=== PATIENT | female | born 1935 | race Caucasian/White ===

== ENCOUNTER 2020-01-23 09:01 | Inpatient (IN) | payer MEDICARE, OTHER ==
[~2020-01-23] VITALS: Ht 170.2 cm; Wt 90.4 kg
[~2020-01-23 09:01] MED LIST: ACET325T21 PO; ACET500T68 PO; ALBU1.25 NEB; BUSP7.5T PO; CA C1TAB28 PO; CARV12.547 PO; CHOL10003 PO; CLON0.5T4 PO; CYAN-25 PO; DOCU100C28 PO; FLUT1DIS3 IH; HYDR25TA PO; LIDO700A4 TP; LORA0.5T PO; LUBI24CA7 PO; MAG30ORA2 PO; MAGN24003 PO; METH29OI TP; METH5TAB6 PO; METO10TA PO; MIRT15TA3 PO; MONT10TA80 PO; OMEP20CA16 PO; QUET25TA PO; QUET50TA9 PO; RANI150T2 PO; SUCR1TAB PO; TRAM50TA PO; TRAZ-120 PO; WARF5TAB2 PO
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
[2020-01-23] MEDS ORDERED: ACETAMINOPHEN 325 MG TABLET PO PRN ×2 (12:45→13:15)
[2020-01-23] MEDS ORDERED: MAGNESIUM HYDROXIDE 2,400 MG/30 ML ORAL.SUSP. PO PRN (12:45)
[2020-01-23] MEDS ORDERED: METHYL SALICYLATE/MENTHOL TOPICAL OINTMENT 57GM TUBE. TP PRN ×2 (12:45→13:15)
[2020-01-23] MEDS ORDERED: MAG HYDROX/AL HYDROX/SIMETH 30 ML ORAL.SUSP PO PRN (13:15)
[2020-01-23] MEDS ORDERED: FUROSEMIDE 20 MG TABLET PO PRN (13:15)
[2020-01-23] MEDS ORDERED: POLYVINYL ALCOHOL 1.4% OPHTH SOLUTION 15ML BOTTLE. OU PRN (13:15)
[2020-01-23] MEDS ORDERED: NON FORMULARY ITEM (Magnesium Hydroxide (Milk Of Magnesia) 2,400 MG) PO PRN (13:15)
[2020-01-23] MEDS ORDERED: TROLAMINE SALICYLATE 10% TOPICAL CREAM 85GM JAR. TP SCH (14:00)
[2020-01-23] MEDS ORDERED: PHEN26CR2 RC (14:28)
[2020-01-23] MEDS ORDERED: OLAN2.5T3 PO (14:28)
[2020-01-23] MEDS ORDERED: CARB1TAB2 PO (14:28)
[2020-01-23] MEDS ORDERED: CIPR500T94 PO (14:28)
[2020-01-23] MEDS ORDERED: POLY119P19 PO (14:28)
[2020-01-23] MEDS ORDERED: DULO60CA6 PO (14:28)
[2020-01-23] MEDS ORDERED: DEXT15DR5 OU (14:28)
[2020-01-23] MEDS ORDERED: ACET500T68 PO (14:28)
[2020-01-23] MEDS ORDERED: DIAZ5TAB4 PO (14:28)
[2020-01-23] MEDS ORDERED: ALBU2.5V5 NEB (14:28)
[2020-01-23] MEDS ORDERED: TROL85CR TP (14:28)
[2020-01-23] MEDS ORDERED: APIX2.5T PO (14:28)
[2020-01-23] MEDS ORDERED: POLY15DR27 OU (14:28)
[2020-01-23] MEDS ORDERED: FURO-69 PO (14:28)
[2020-01-23] MEDS ORDERED: METO25TA4 PO (14:28)
[2020-01-23] MEDS ORDERED: PHENYLEPH/MINERAL OIL/PETROLAT RECTAL OINTMENT TUBE. RC PRN (15:15)
[2020-01-23] MEDS ORDERED: ALBUTEROL SULFATE 8GM INHALER. INH PRN ×2 (15:45→16:30)
[2020-01-23] MEDS: CARBIDOPA/LEVODOPA 25/100MG TABLET PO SCH ×2 (15:49→20:01)
[2020-01-23 15:56] VITALS: BP 152/79
[2020-01-23] MEDS: POLYETHYLENE GLYCOL 3350 17 GM PACKET. PO PRN (16:14)
[2020-01-23] MEDS: ACETAMINOPHEN 500 MG TABLET PO SCH ×2 (17:00→20:00)
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
[2020-01-23] MEDS: METOPROLOL TART IMMED RELEASE 25 MG TABLET PO SCH (20:00)
[2020-01-23] MEDS: DULoxetine HCL 60 MG CAPSULE.DR PO SCH (20:00)
[2020-01-23] MEDS: APIXABAN 2.5 MG TABLET PO SCH (20:00)
[2020-01-23] MEDS: CIPROFLOXACIN HCL 500 MG TABLET PO SCH (20:00)
[2020-01-23] MEDS: MONTELUKAST 10 MG TABLET. PO SCH (20:01)
[2020-01-23] MEDS: diazePAM 5 MG TABLET. PO SCH (20:01)
[2020-01-23] MEDS ORDERED: DEXTRAN OU SCH (21:00)
[2020-01-23] MEDS ORDERED: HYPROMELLOSE OU SCH (21:00)
--- NOTE | 2020-01-23 21:53 | PDOC ---
Exam Note: Wade Note: Please also refer to the separate dictated note~for this date of service dictated separately.~Patient seen individually. Discussed the patient with Nursing staff reviewed the chart.~Reviewed interim history and current functioning. Reviewed vital signs,~Labs/ Radiology~and current medications noted below. Continue current treatment with the changes noted in the dictated addendum note Assessment: Vital Signs/I&O: Vital Signs Date Time Temp Pulse Resp B/P (MAP) Pulse Ox O2 Delivery O2 Flow Rate FiO2 01/23/20 21:41 98.1 98 01/23/20 20:00 91 152/79 01/23/20 15:56 16 Room Air Current Medications: Meds: Current Medications Medications (Trade) Dose Ordered Sig/Amilcar Route PRN Reason Start Time Stop Time Status Last Admin Dose Admin Acetaminophen (Tylenol) 500 mg QID PO 01/23/20 17:00 01/23/20 20:00 Apixaban (Eliquis) 2.5 mg BID PO 01/23/20 21:00 01/23/20 20:00 Carbidopa/Levodopa (Sinemet 25/100) 1 tab TID PO 01/23/20 14:00 01/23/20 20:01 Ciprofloxacin (Cipro) 500 mg BID PO 01/23/20 21:00 01/29/20 23:00 01/23/20 20:00 Diazepam (Valium) 5 mg BID PO 01/23/20 21:00 01/23/20 20:01 Duloxetine HCl (Cymbalta) 60 mg BID PO 01/23/20 21:00 01/23/20 20:00 Metoprolol Tartrate (Lopressor) 25 mg BID PO 01/23/20 21:00 01/23/20 20:00 Montelukast Sodium (Singulair) 10 mg HS PO 01/23/20 21:00 01/23/20 20:01 Polyethylene Glycol (miraLAX) 17 gm PRN DAILY PRN PO CONSTIPATION 01/23/20 15:00 01/23/20 16:14 I have reviewed the current psychotropics carefully including drug interactions. Risk benefit ratio favors no change other than as noted in my dictated progress note. Diagnosis: Problems: (1) Psychotic disorder SILVIO CERON MD Jan 23, 2020 21:53
--- NOTE | 2020-01-23 22:16 | NUR ---
Pt lying in bed, awake at shift change. Pt tearful and crying, irritable at times, and delusional- believes her is cheating on her with several different women. Pt called HIGHWAY RESEARCH ENGINEER a "whore" because she did not like the perfume that HIGHWAY RESEARCH ENGINEER was wearing. Repeat COVID swab collected and sent to the lab, pt tolerated procedure well. Pt cooperative with assessment and compliant with medications administered whole on a spoon.
[2020-01-24 05:37] VITALS: BP 122/82
[2020-01-24 06:49] LABS: BASO % 0 % (0-3); EOS # 0.3 x10^3/uL (0.0-0.7); EOS % 4 % (0-3); HEMATOCRIT 39.4 % (36.0-47.0); LYMPH # 2.5 x10^3/uL (1.0-4.8); LYMPH % 35 % (24-48); MEAN CORPUSCULAR HEMOGLOBIN 30 pg (25-35); MEAN CORPUSCULAR HGB CONC 33 g/dL (31-37); MEAN CORPUSCULAR VOLUME 90 fL (79-100); MONO # 0.5 x10^3/uL (0.0-1.1); MONO % 8 % (0-9); NEUT # 3.7 x10^3uL (1.8-7.7); NEUT % 53 % (31-73); PLATELET COUNT 273 x10^3/uL (140-400); RED BLOOD COUNT 4.36 x10^6/uL (3.50-5.40)
[2020-01-24 06:57] LABS: ALBUMIN 3.1 g/dL (3.4-5.0); CALCIUM 9.4 mg/dL (8.5-10.1); GFR 52.8; MAGNESIUM 1.9 mg/dL (1.8-2.4); POTASSIUM 4.5 mmol/L (3.5-5.1); TOTAL BILIRUBIN 0.5 mg/dL (0.2-1.0); TOTAL PROTEIN 6.2 g/dL (6.4-8.2)
[2020-01-24] MEDS: DOCUSATE SODIUM 100 MG CAPSULE PO SCH (08:37)
[2020-01-24] MEDS: DULoxetine HCL 60 MG CAPSULE.DR PO SCH ×2 (08:37→19:55)
[2020-01-24] MEDS: CARBIDOPA/LEVODOPA 25/100MG TABLET PO SCH ×3 (08:37→19:55)
[2020-01-24] MEDS: METOPROLOL TART IMMED RELEASE 25 MG TABLET PO SCH ×2 (08:38→19:56)
[2020-01-24] MEDS: APIXABAN 2.5 MG TABLET PO SCH ×2 (08:38→19:55)
[2020-01-24] MEDS: ACETAMINOPHEN 500 MG TABLET PO SCH ×4 (08:39→19:55)
[2020-01-24] MEDS: CIPROFLOXACIN HCL 500 MG TABLET PO SCH ×2 (08:39→19:56)
[2020-01-24] MEDS: diazePAM 5 MG TABLET. PO SCH ×2 (08:39→19:56)
[2020-01-24] MEDS: PANTOPRAZOLE 40 MG TABLET. PO SCH (08:39)
[2020-01-24] MEDS ORDERED: OLANZapine 2.5 MG TABLET PO SCH (09:00)
--- NOTE | 2020-01-24 11:36 | NUR ---
Nursing note: Pt in her room eating breakfast when approached for morning meds and assessment. She was social, compliant with meds whole, and cooperative with her assessment. Pt denied any pain. She continues to be depressed and preoccupied with her "cheating ", but is much less tearful than she was yesterday. She is currently sitting quietly in her room. Will continue to monitor.
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
--- NOTE | 2020-01-24 12:26 | CONS ---
DATE OF CONSULTATION: 01/24/2020 ATTENDING PHYSICIAN: Dr. Wilson. We are asked to see this patient for medical evaluation. HISTORY OF PRESENT ILLNESS: The patient is an 84-year-old female sent [place] [facility] [place], [place]. She had been in [place], [place]. She has profound underlying dementia. She was sent here for behavioral issues related to dementia with significant paranoia. PAST MEDICAL HISTORY: Gleaned from the chart. She has been diagnosed in the past with profound dementia, major depression, generalized anxiety, essential hypertension, Parkinson's disease, rectal prolapse, unspecified diastolic congestive heart failure, compensated diffuse osteoarthritis, chronic constipation, irritable bowel syndrome, dysphagia, hyperlipidemia, essential tremor, paroxysmal atrial fibrillation and hemorrhoids. ALLERGIES: She has multiple allergies including allergies to ERYTHROMYCIN, MOEXIPRIL, ALPRAZOLAM, ZITHROMAX, CEFUROXIME, CLINDAMYCIN, CODEINE, HYDROCHLOROTHIAZIDE, HYDROCODONE, AND METRONIDAZOLE. Exact cause is unclear. CURRENT ACTIVE MEDICATIONS: Include Tylenol, albuterol, Eliquis 2.5 mg b.i.d., Sinemet 25/100 t.i.d., Cipro for 7 days, dextran, diazepam, docusate, Cymbalta 60 mg daily, Lasix 20 mg daily, magnesium hydroxide, methyl salicylate, menthol ointment, metoprolol 25 mg b.i.d., Montelukast, Zyprexa 2.5 mg daily, omeprazole, MiraLax, polyvinyl alcohol and Asper-Flex. SOCIAL HISTORY: Nonsmoker, drinking history unobtainable. FAMILY HISTORY: Unobtainable. REVIEW OF SYSTEMS: Unfortunately is unobtainable. PHYSICAL EXAMINATION: GENERAL: When I saw her, this is an elderly lady who is sleepy, but arousable. She is slumped over in her wheelchair in her room. VITAL SIGNS: Her vital signs showed a blood pressure 122/82 mmHg, temperature 98.6 degrees Fahrenheit, pulse is 60 and regular, oxygen saturation 99% on 2 liters of nasal cannula. HEENT: The head is without trauma. Pupils are reactive. The sclerae are nonicteric. The oropharynx appears normal without any lesions. NECK : The neck was supple. LUNGS: Shallow respirations. No wheezing. CARDIOVASCULAR: Showed distant heart tones. No gallops. Peripheral pulses are palpable and full. ABDOMEN: Obese, protuberant. No organomegaly. No guarding or rebound tenderness. EXTREMITIES: Showed trace edema. NEUROLOGIC FUNCTION: She is able to pearl fisherman my hands symmetrical without any muscle loss. Her cranial nerves 2-12 appeared to be intact grossly. Her tendon reflexes are sluggish, but symmetrical. I could not assess her gait at this time. She is nonambulatory, sitting in a wheelchair. I could not assess her Romberg. Therefore, the full neurological exam is limited due to the patient's underlying dementia and debilitation. PERTINENT LABORATORY STUDIES: She had a COVID-19 swab which was negative prior to admission. Her hemoglobin is 13.0 g/dL with white count of 7000. Electrolytes showed a sodium of 144 and potassium 4.5 mEq per liter. Creatinine is 1.0 mg/dL. Transaminases all within normal range. Her nonfasting blood sugar is 92 mg/dL. ASSESSMENT: 1. This 84-year-old female has profound dementia with behavioral issues and paranoia. 2. History of Parkinson's disease, on medication. 3. Essential hypertension with labile blood pressures. 4. Chronic low back pain. 5. History of congestive heart failure. 6. Unspecified atrial fibrillation. 7. Chronic anticoagulation. 8. Irritable bowel syndrome. 9. Dysphagia. RECOMMENDATIONS: 1. I have reviewed the patient's medications and she appears a bit sedated and we shall follow along during the course to see if she needs all her meds. 2. She is a DNR per advanced directive. We should respect her wishes. 3. So far she is stable from medical standpoint, although with all her medical issues, she is at risk for developing acute problems. Thank you very much for asking me to see the patient in medical consultation. We should keep an eye on her closely during her inpatient stay. We shall follow along closely with interest. SAMANTHA MAC MD DR: JAKI/neil JOB#: [id number] / [id number]
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
[2020-01-24 15:30] VITALS: BP 127/74
--- NOTE | 2020-01-24 15:55 | TX PLAN ---
Interdisciplinary Tx Plan Admission Information Jan 23, 2020 at 11:13 Legal Status (on Admission): Voluntary DPOA/Guardian Name: Prakash Fitch Contact Other Contact Name: [facility] Other Contact Verified Code Status: DNR Allergies: Coded Allergies: Erythromycin Base (Verified Allergy, Unknown, 11/12/13) Moexipril (Verified Allergy, Unknown, 11/12/13) alprazolam (Verified Allergy, Unknown, 11/12/13) azithromycin (Verified Allergy, Unknown, 11/12/13) cefuroxime (Verified Allergy, Unknown, 11/09/13) clindamycin (Verified Allergy, Unknown, 11/09/13) codeine (Verified Allergy, Unknown, 11/12/13) hydrochlorothiazide (Verified Allergy, Unknown, 11/12/13) hydrocodone (Verified Allergy, Unknown, 11/12/13) metronidazole (Verified Allergy, Unknown, 11/12/13) Diagnoses Primary Diagnosis: Psychotic D/O unspecified Reasons for Admission: Delusions, Agitated, Hallucinations, Suspicious/paranoid, Poor impulse control, Other Problem in Patient's Words: Thinks that a lot of this has to do with her having multiple UTI's. Additional Admission Comments: According to the intake, pt is delusional and thinks staff are having an affair with her . Pt is having visual and auditory hallucinations, expressing SI "I just want to " putting herself on the floor, mood lability, irritable, agitated and pacing. Problems Active Problems: delusional SI without definite plan mood lability Inactive Problems: Medication management Pt Strengths/Limitations Ability for [place]: Poor Cognitive Functioning/Ability: Poor Communication Skills/Ability: Fair Financial Resources: Fair Insight/Judgement: Poor Intellectual Ability: Fair Physical Health: Poor Social Skills: Fair Stability in Family: Good Stability in School/Work: Poor Verbal Skills: Fair Discharge Criteria Discharge Criteria: No need for close observ., Adequate arrangements @DC, Improved behavior, Improved mood/thought Preliminary Discharge Plan Preliminary DC Plan: Current Living Arrange. Special Precautions Fall Risk: Low Initial D/C Plan Pt will return to [facility] Identified Discharge Needs: Continued psychiatric services Currently Utilized Resources Currently Utilized Resources/P: Primary care physician Referrals Community Resources: Psychiatrist Identified Problems/Hx/Goals Objectives/Short-Term Goals Short Term Goals: Dec. Hallucination/Delus, Dec. Outbursts, Improved Social Skills, Medication Stabilization, Promote Coping Skill Short Term Goals in Patient's: "Can I get a phone to call my " Interventions/Frequency Staff Interventions/Frequency&: Psychiatrist to assess pt at least 3x per week. Social Work to asses pt at least 2x per week. Nursing to assess behavior, medications and complete 15 minute checks daily. Encourage group participation or 1:1 engagement based off Activity Dept assessment. 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 Education: Pt graduated high school (12th grade) Community Follow-up Primary Care physician Updates to LTC facility Treatment Plan Explained Patient/Bead Stringer had this treatment plan explained to him/her as indicated by the signature below and has been given the opportunity to ask questions and make suggestions: Date: Patient/Bead Stringer Signature: Patient/Bead Stringer Decline: No Additional Comments Pt is eating roughly 80% of meals and slept 7 hours last night. Pt is delusional and continues to make SI statements, telling nursing that if she had a gun, she would use it on herself. Pt continues to believe that her is having an affair and accused a STREET SUPERVISOR of having an affair, as her perfume reminds her of the woman (this is a delusion). Pt will have her Zyprexa discontinued and start Abilify 5mg daily. Pt will also receive a neurology consult with Dr. Martins. MATTEO SALGUERO Jan 24, 2020 15:55
[2020-01-24 16:07] LABS: THYROXINE 7.6 ug/dL (4.5-12.0)
[2020-01-24 16:21] LABS: THYROID STIM HORMONE (TSH) 0.497 uIU/mL (0.358-3.740)
--- NOTE | 2020-01-24 19:38 | CONS ---
DATE OF CONSULTATION: 01/24/2020 NEURO CONSULTATION REFERRING PHYSICIAN: Dr. Wilson. REASON FOR CONSULTATION: Management of Parkinson's disease. HISTORY OF PRESENT ILLNESS: This is an 84-year-old right-handed female who was admitted on 01/23/2020 on account of behavior disturbances and progressive dementia. Neuro consult was requested because the patient has longstanding history of Parkinson's disease. The patient complains of intermittent tremor of the upper extremity and increased stiffness of the arms and legs. She has difficulty walking. Therefore, she is wheelchair bound. She denies headaches, visual disturbances, nausea, vomiting, chest pain, shortness of breath or palpitations; however, the patient complains of chronic lower back pain and sometimes radiating into the lower extremities. She has been on carbidopa/levodopa 25/100 three times daily, but she continues to have resting tremor of both hands. PAST MEDICAL HISTORY: Significant for atrial fibrillation, anxiety, depressions, slowly progressive dementia, hypertension, diastolic congestive heart failure, diffuse osteoarthritis, irritable bowel syndrome, hyperlipidemia, hemorrhoids, recent history of urinary tract infections, GERD. SOCIAL HISTORY: The patient is a nonsmoker. She denies alcohol drinking or illicit drug use. FAMILY HISTORY: Noncontributory. CURRENT MEDICATIONS: Abilify 5 mg daily, pantoprazole 40 mg daily, Singulair 10 mg daily, metoprolol 25 mg b.i.d., Cymbalta 60 mg b.i.d., diazepam 5 mg b.i.d., Eliquis 2.5 mg b.i.d., Tylenol 500 mg p.r.n., albuterol inhalers, carbidopa/levodopa 25/100 t.i.d., Lasix 20 mg p.r.n. for edema. ALLERGIES: ERYTHROMYCIN BASE, MOEXIPRIL, ALPRAZOLAM, AZITHROMYCIN, CEFUROXIME, CLINDAMYCIN, CODEINE, HYDROCHLOROTHIAZIDE, HYDROCODONE, METRONIDAZOLE. REVIEW OF SYSTEMS: A 10-point review of system was performed as mentioned above in history of present illness. PHYSICAL EXAMINATION: GENERAL: This is a well-developed, well-nourished female, not in acute distress. She weighs 90.9 kilos. VITAL SIGNS: Blood pressure 127/74, respiratory rate 18, pulse is 74 and irregular, temperature is 98.2, oxygen saturation is 99% on 2 liters by nasal cannula. HEENT: Normocephalic, atraumatic, otherwise unremarkable. NECK: Supple. Negative for carotid bruit, lymphadenopathy or thyromegaly. LUNGS: Clear to A and P. CARDIOVASCULAR: Irregular rhythm, normal S1, S2. There is no S3, S4 or murmur. ABDOMEN: Soft. Bowel sounds positive. EXTREMITIES: Negative for cyanosis, clubbing or edema. NEUROLOGICAL EXAM: Mental Status: The patient is alert and oriented to time and place. She is able to name the president. Speech is fluent. There is no language dysfunction. She recalls 1/3 immediately and after 1 and 3 minutes. Judgment and abstracting thinking are fair. The patient denies hallucination or delusion. Cranial nerves: Visual santiago are full. The pupils are reactive to light and accommodation. The extraocular movements are intact. There is no nystagmus. There are no facial motor or sensory deficits. Hearing is intact bilaterally. The palate is elevated symmetrically. Sternocleidomastoid muscles are powerful bilaterally. The patient shrugs her shoulders symmetrically, protrudes her tongue in the midline without fasciculation or atrophy. Motor examination: No focal muscle bulk was seen. The tone is increased in the upper extremity. The patient has resting tremor of both upper extremities. The strength is 4/5 throughout. Sensory examination revealed normal pinprick, light touch, vibratory and position senses. Deep tendon reflexes were symmetric and hypoactive with absent Achilles responses. Gait: Not tested. DIAGNOSTIC DATA: Head CT scan from 2014 revealed no intracranial process. Chest x-ray revealed no acute cardiopulmonary process. LABORATORY DATA: CBC revealed white blood cells of 7000, hemoglobin 13, hematocrit 39.4, platelet count 273,000. Chemistry revealed sodium of 144, potassium 4.5, chloride 106, CO2 of 35, BUN 10, creatinine 1, glucose 92, magnesium 1.9. Iron is normal at 78. Liver enzymes are low ALT with high alkaline phosphatase. Lipid profile revealed elevated triglycerides and cholesterol and LDL. HDL is normal at 51. Vitamin B12 is low at 217 with normal thyroid profile. Treponema pallidum is RPR nonreactive. IMPRESSION: 1. Slowly progressive dementia. 2. Long history of Parkinson's disease. 3. Multiple medical problems include hypertension, hyperlipidemia, chronic low back pain, atrial fibrillation, irritable bowel syndrome and dysphagia. RECOMMENDATIONS: 1. We will continue with carbidopa/levodopa 25/100. 2. Add ropinirole 0.5 mg b.i.d. 3. Physical therapy evaluation. 4. Continue with current medical and psychiatric care. M Isidoro FISH MD DR: NATO/neil JOB#: [id number] / [id number]
[2020-01-24] MEDS: rOPINIRole 0.5 MG TABLET. PO SCH (19:55)
[2020-01-24] MEDS: MONTELUKAST 10 MG TABLET. PO SCH (19:55)
[2020-01-24] MEDS: LACTOBACILLUS RHAMNOSUS GG 1 CAPSULE. PO SCH (19:56)
[2020-01-24] MEDS: POLYETHYLENE GLYCOL 3350 17 GM PACKET. PO PRN (20:06)
--- NOTE | 2020-01-24 21:58 | PDOC ---
Exam Note: Wade Note: Please also refer to the separate dictated note~for this date of service dictated separately.~Patient seen individually. Discussed the patient with Nursing staff reviewed the chart.~Reviewed interim history and current functioning. Reviewed vital signs,~Labs/ Radiology~and current medications noted below. Continue current treatment with the changes noted in the dictated addendum note Assessment: Vital Signs/I&O: Vital Signs Date Time Temp Pulse Resp B/P (MAP) Pulse Ox O2 Delivery O2 Flow Rate FiO2 01/24/20 20:26 97.4 72 100 01/24/20 19:56 127/74 01/24/20 15:30 18 2.0 01/24/20 05:37 Nasal Cannula I & O 01/23/20 01/23/20 01/24/20 15:00 23:00 07:00 Intake Total 600 ml Balance 600 ml Labs: Laboratory Tests Test 01/24/20 06:22 White Blood Count 7.0 x10^3/uL (4.0-11.0) Red Blood Count 4.36 x10^6/uL (3.50-5.40) Hemoglobin 13.0 g/dL (12.0-15.5) Hematocrit 39.4 % (36.0-47.0) Mean Corpuscular Volume 90 fL (79-100) Mean Corpuscular Hemoglobin 30 pg (25-35) Mean Corpuscular Hemoglobin Concent 33 g/dL (31-37) Red Cell Distribution Width 15.0 % (11.5-14.5) H Platelet Count 273 x10^3/uL (140-400) Neutrophils (%) (Auto) 53 % (31-73) Lymphocytes (%) (Auto) 35 % (24-48) Monocytes (%) (Auto) 8 % (0-9) Eosinophils (%) (Auto) 4 % (0-3) H Basophils (%) (Auto) 0 % (0-3) Neutrophils # (Auto) 3.7 x10^3uL (1.8-7.7) Lymphocytes # (Auto) 2.5 x10^3/uL (1.0-4.8) Monocytes # (Auto) 0.5 x10^3/uL (0.0-1.1) Eosinophils # (Auto) 0.3 x10^3/uL (0.0-0.7) Basophils # (Auto) 0.0 x10^3/uL (0.0-0.2) Sodium Level 144 mmol/L (136-145) Potassium Level 4.5 mmol/L (3.5-5.1) Chloride Level 106 mmol/L (98-107) Carbon Dioxide Level 35 mmol/L (21-32) H Anion Gap 3 (6-14) L Blood Urea Nitrogen 10 mg/dL (7-20) Creatinine 1.0 mg/dL (0.6-1.0) Estimated GFR (Cockcroft-Gault) 52.8 BUN/Creatinine Ratio 10 (6-20) Glucose Level 92 mg/dL (70-99) Calcium Level 9.4 mg/dL (8.5-10.1) Magnesium Level 1.9 mg/dL (1.8-2.4) Iron Level 78 ug/dL (50-170) Total Iron Binding Capacity 225 ug/dL (250-450) L Iron Saturation 35 % (15-34) H Total Bilirubin 0.5 mg/dL (0.2-1.0) Aspartate Amino Transferase (AST) 16 U/L (15-37) Alanine Aminotransferase (ALT) 12 U/L (14-59) L Alkaline Phosphatase 117 U/L (46-116) H Total Protein 6.2 g/dL (6.4-8.2) L Albumin 3.1 g/dL (3.4-5.0) L Albumin/Globulin Ratio 1.0 (1.0-1.7) Triglycerides Level 139 mg/dL (0-150) Cholesterol Level 221 mg/dL (0-200) H LDL Cholesterol, Calculated 143 mg/dL (0-100) H VLDL Cholesterol, Calculated 27 mg/dL (0-40) Non-HDL Cholesterol Calculated 170 mg/dL (0-129) H HDL Cholesterol 51 mg/dL (40-60) Cholesterol/HDL Ratio 4.0 Vitamin B12 Level 217 pg/mL (247-911) L 25-Hydroxy Vitamin D Total 10.5 ng/mL (30-100) L Thyroid Stimulating Hormone (TSH) 0.497 uIU/mL (0.358-3.740) Thyroxine (T4) 7.6 ug/dL (4.5-12.0) Total Triiodothyronine (TT3) 90 ng/dL (71-180) Treponema pallidum Antibody Nonreactive (Nonreactive) Current Medications: Meds: Current Medications Medications (Trade) Dose Ordered Sig/Amilcar Route PRN Reason Start Time Stop Time Status Last Admin Dose Admin Docusate Sodium (Colace) 100 mg DAILY PO 01/24/20 09:00 01/24/20 08:37 Olanzapine (ZyPREXA) 1.25 mg DAILY PO 01/24/20 09:00 01/24/20 10:19 DC 01/24/20 08:39 Pantoprazole Sodium (Protonix) 40 mg DAILYAC PO 01/24/20 07:30 01/24/20 08:39 Lactobacillus Rhamnosus (Culturelle) 1 cap BID PO 01/24/20 21:00 01/24/20 19:56 Ropinirole HCl (Requip) 0.5 mg BID PO 01/24/20 21:00 01/24/20 19:55 I have reviewed the current psychotropics carefully including drug interactions. Risk benefit ratio favors no change other than as noted in my dictated progress note. Diagnosis: Problems: (1) History of Parkinson's disease (2) Psychotic disorder SILVIO CERON MD Jan 24, 2020 21:58
--- NOTE | 2020-01-24 21:59 | NUR ---
Location of Patient during Assessment: pt sitting quietly in her w/c. Behaviors Mood and Affect this shift: Pt calm, pleasant, and cooperative this evening. Easily engaged in conversation, smiling and laughing with staff. Medication Compliant: Pt compliant with medications administered whole on a spoon. Assessment Compliant: Pt compliant and cooperative with assessment. Pt has c/o constipation, Miralax administered in cranberry juice. 2+ edema BLE, skin acrocyanotic but intact. Response After Interventions: Pt reports that she feels better today than she has previously, is less tearful with an appropriate affect.
[2020-01-25 00:07] LABS: HEMOGLOBIN A1C 5.4 % (4.8-5.6)
[2020-01-25 06:57] VITALS: BP 148/78
[2020-01-25] MEDS: DULoxetine HCL 60 MG CAPSULE.DR PO SCH ×2 (08:19→20:54)
[2020-01-25] MEDS: CIPROFLOXACIN HCL 500 MG TABLET PO SCH ×2 (08:19→20:54)
[2020-01-25] MEDS: METOPROLOL TART IMMED RELEASE 25 MG TABLET PO SCH ×2 (08:19→20:54)
[2020-01-25] MEDS: diazePAM 5 MG TABLET. PO SCH ×2 (08:19→21:00)
[2020-01-25] MEDS: PANTOPRAZOLE 40 MG TABLET. PO SCH (08:19)
[2020-01-25] MEDS: ACETAMINOPHEN 500 MG TABLET PO SCH ×4 (08:19→20:54)
[2020-01-25] MEDS: CARBIDOPA/LEVODOPA 25/100MG TABLET PO SCH ×3 (08:19→20:54)
[2020-01-25] MEDS: LACTOBACILLUS RHAMNOSUS GG 1 CAPSULE. PO SCH ×2 (08:19→20:55)
[2020-01-25] MEDS: rOPINIRole 0.5 MG TABLET. PO SCH ×2 (08:19→20:54)
[2020-01-25] MEDS: APIXABAN 2.5 MG TABLET PO SCH ×2 (08:19→20:54)
[2020-01-25] MEDS: DOCUSATE SODIUM 100 MG CAPSULE PO SCH (08:20)
[2020-01-25] MEDS ORDERED: ARIPiprazole 5 MG TABLET PO SCH (09:00)
--- NOTE | 2020-01-25 10:32 | NUR ---
Nursing note: Pt sitting up in bed eating breakfast when approached for morning med pass and assessment. Pt was med compliant and cooperative. She denies pain when asked and says that she's feeling good. Pt asked this nurse "were you with my this morning?" When given no as an answer she asked "who was that man here this morning?" It was explained to the pt that there were 2 males on night shift supervisor staff. Pt was accepting of this answer. She is currently sitting quietly in her room. Will continue to monitor.
[2020-01-25] MEDS ORDERED: CYANOCOBALAMIN (VITAMIN B-12) 1,000 MCG/ML VIAL. IM ONE (11:30)
[2020-01-25] MEDS ORDERED: MAGNESIUM CITRATE 296 ML SOLUTION. PO ONE (12:45)
--- NOTE | 2020-01-25 13:54 | PN ---
DATE: 01/24/2020 PSYCHIATRIC PROGRESS NOTE This late entry 01/24/2020 covers elements not covered in my initial note. SUBJECTIVE: I met with the patient evening of 01/24/2020 on telehealth rounds and staffed a treatment team meeting with the entire team in the morning with WILIAN Cerna and Joelle, social service staff. The patient's culture sensitivity has returned. We will check with Dr. Covarrubias. Patient remains depressed, tearful, paranoid, suspicious with fleeting suicidal ideation. No active intent or plan. Appetite 80%. REVIEW OF SYSTEMS: Ambulation impaired. No CV, , pulmonary, eye system symptoms on review. MENTAL STATUS EXAM: Oriented to herself and situation. Speech is coherent, has some latency. Abstraction fair, computation impaired, language function intact. Mood and affect depressed. She is quite tearful, hopeless, helpless. No suicidal ideation. LABORATORY DATA: Reviewed. IMPRESSION: Major depressive disorder with psychotic features, urinary tract infection, Parkinson's disease. Rest unchanged. PLAN: Continue Cipro for UTI. Change Zyprexa 1.25 mg daily to Abilify 5 mg a day as an antipsychotic, maintain Cymbalta 60 mg b.i.d., Sinemet and Valium at current dosage. We will consider tapering the Valium. SILVIO CERON MD DR: SAULO/neil JOB#: [id number] / [id number]
--- NOTE | 2020-01-25 14:10 | HP ---
ADMIT DATE: 01/23/2020 PSYCHIATRIC ADMISSION HISTORY AND EVALUATION This is a late entry, date of service 01/23/2020, covers elements not covered in my initial note. SUBJECTIVE: I met with the patient evening of 01/23/2020, previously discussed with Shital Fischer, marketing database coordinator and with nursing staff. IDENTIFYING DATA: The patient is an 84-year-old female referred to us from [facility] by her primary care physician on account of worsening delusions, depression. The patient believed the staff members were having an affair with her spouse. She was having auditory and visual hallucinations, making statements, "I just want to ." She was putting herself on the floor, had a labile mood, agitated, pacing. She had failed outpatient psychiatric interventions, referred for inpatient psychiatric stabilization. CHIEF COMPLAINT: "Yes, they are having an affair with him." HISTORY OF PRESENT ILLNESS: The patient has a history of worsening symptoms of depression, delusions with active psychotic symptoms as noted above. She has had sleep and appetite changes, increased irritability, marked depression, suicidal ideation, and has failed outpatient psychiatric interventions resulting in this referral. No clear history of bipolar disorder. She does have a history of Parkinson's disease and question has been raised whether the Sinemet could be worsening her psychosis. PAST PSYCHIATRIC HISTORY: As above. MEDICAL HISTORY: Hypertension, hyperlipidemia, CHF, asthma, dysphagia, irritable bowel syndrome, obesity, atrial fibrillation, tremor, respiratory failure, muscle weakness, chronic constipation, Parkinson's disease, hemorrhoids, lower back pain. ACCU-CHEKS: None. DIET: Regular, cardiac. ALLERGIES: CEFUROXIME, CLINDAMYCIN, CODEINE, ERYTHROMYCIN, HYDROCHLOROTHIAZIDE, HYDROCODONE, UNIRETIC, XANAX, ZITHROMAX. CODE STATUS: DNR. Ambulates with wheelchair or walker. UA was positive and she is on Cipro for UTI ____. CURRENT PSYCHOTROPICS: Cymbalta 60 mg b.i.d., Zyprexa 1.25 mg daily, Sinemet CR 25/100 t.i.d., Valium 5 mg b.i.d. FAMILY HISTORY: Noncontributory. SOCIAL HISTORY: No history of alcohol, drug abuse, physical, sexual or elder abuse. She is not known to be a perpetrator. REACTION TO HOSPITALIZATION: The patient accepting of this. MENTAL STATUS EXAMINATION: The patient was seen individually at some length in her room evening of 01/23/2020. She is not very verbally interactive, appears paranoid, depressed, withdrawn, suspicious. Per nursing report, she has been reasonably oriented. Attention span is short. Mood is depressed, anxious. No active suicidal or homicidal ideation. LABORATORY DATA: Reviewed. IMPRESSION: Major depressive disorder with psychotic features; psychotic disorder, unspecified; urinary tract infection, Parkinson's disease. Rest diagnoses as above. PLAN: Admit to Geropsychiatry Unit at [facility]. I will see the patient daily individually from a psychiatric standpoint. Medical followup with Dr. Macedo/Dr. Covarrubias. Continue the patient on her current psychotropics. Consider changing Zyprexa to Abilify for psychosis. May consider having a Neurology consult with Dr. Martins given her Parkinson's and Sinemet worsening psychosis. Make further adjustments as clinically indicated. Estimated length of stay is 10-12 days. SILVIO CERON MD DR: SAULO/neil JOB#: [id number] / [id number]
[2020-01-25 16:06] VITALS: BP 109/64
--- NOTE | 2020-01-25 17:26 | NUR ---
Nursing note: Pt uncontrollably crying and yelling out. She is unable to be redirected. Order obtained for PRN tayler. PRN given. Will continue to monitor.
[2020-01-25 20:45] VITALS: BP 115/73
[2020-01-25] MEDS: MONTELUKAST 10 MG TABLET. PO SCH (20:54)
[2020-01-25] MEDS: NEOMYCIN/BACI/POLY/HC OPHTH OINTMENT 3.5GM TUBE. OS SCH (20:55)
--- NOTE | 2020-01-25 21:55 | PDOC ---
Exam Note: Wade Note: Please also refer to the separate dictated note~for this date of service dictated separately.~Patient seen individually. Discussed the patient with Nursing staff reviewed the chart.~Reviewed interim history and current functioning. Reviewed vital signs,~Labs/ Radiology~and current medications noted below. Continue current treatment with the changes noted in the dictated addendum note Assessment: Vital Signs/I&O: Vital Signs Date Time Temp Pulse Resp B/P (MAP) Pulse Ox O2 Delivery O2 Flow Rate FiO2 01/25/20 20:54 80 115/73 01/25/20 20:47 98.8 95 01/25/20 16:06 18 01/25/20 06:57 2.0 01/24/20 05:37 Nasal Cannula I & O 01/24/20 01/24/20 01/25/20 15:00 23:00 07:00 Intake Total 560 ml 560 ml Balance 560 ml 560 ml Labs: Laboratory Tests Test 01/25/20 06:02 Glucose (Fingerstick) 84 mg/dL (70-99) Current Medications: Meds: Current Medications Medications (Trade) Dose Ordered Sig/Amilcar Route PRN Reason Start Time Stop Time Status Last Admin Dose Admin Aripiprazole (Abilify) 5 mg DAILY PO 01/25/20 09:00 01/25/20 17:09 DC 01/25/20 08:20 Cyanocobalamin (Vitamin B-12) 1,000 mcg 1X ONCE IM 01/25/20 11:30 01/25/20 11:31 DC 01/25/20 13:32 Magnesium Citrate (Citroma) 296 ml 1X ONCE PO 01/25/20 12:45 01/25/20 12:46 DC 01/25/20 13:32 Neomycin/ Polymyxin/Bacitr/ Hydrocort (Cortisporin Ophth) 2 shmuel BID OS 01/25/20 21:00 01/25/20 20:55 Olanzapine (ZyPREXA ZYDIS) 2.5 mg PRN Q2HR PRN PO PSYCHOSIS 01/25/20 17:15 01/25/20 17:22 I have reviewed the current psychotropics carefully including drug interactions. Risk benefit ratio favors no change other than as noted in my dictated progress note. Diagnosis: Problems: (1) Major depressive disorder with psychotic features (2) Urinary tract infection (3) Psychotic disorder (4) History of Parkinson's disease SILVIO CERON MD Jan 25, 2020 21:55
--- NOTE | 2020-01-25 22:00 | PN ---
DATE: 01/25/2020 PSYCHIATRIC PROGRESS NOTE This note covers elements not covered in my initial note 01/25/2020. SUBJECTIVE: I met with the patient evening of 01/25/2020 on telehealth rounds. Per nursing report, the patient slept 7-1/2 hours previous night, less tearful. electronic assembly, she was interactive, but then drowsy a little bit later, seemed a little more confused since Requip was added earlier in the day by Dr. Martins for her Parkinson's. It appeared at one point, she did not know how to drink or eat. She is anxious and tearful. REVIEW OF SYSTEMS: Positive for back pain, impaired ambulation. No CV, , pulmonary, eye system symptoms on review. MENTAL STATUS EXAM: Oriented to herself and situation. Speech is coherent, abstraction fair, computation impaired, language function intact, attention span short. Mood and affect depressed. She is still psychotic. We had a lengthy discussion that her had not done, some of the things she believe he had done including having an affair. She is less fixated on this, but still quite delusional as I processed this with her. Speech is coherent. Thought processes goal directed, but paranoid. No active suicidal or homicidal ideation. Mood remains depressed. LABORATORY DATA: Reviewed. IMPRESSION: Major depressive disorder with psychotic features; psychotic disorder, unspecified; Parkinson's disease. Rest unchanged. PLAN: Reduce Abilify from 5 mg a day down to 2.5 mg a day. May consider tapering the Valium in due course, which is currently 5 mg b.i.d. Maintain Cymbalta 60 mg b.i.d., may reduce this as well. Treat the back pain. Rest unchanged for now. MAN Oz CERON MD DR: SAULO/neil JOB#: [id number] / [id number]
--- NOTE | 2020-01-25 23:00 | NUR ---
Location of Patient during Assessment: pt withdrawn to her room, sitting up in her chair. Behaviors Mood and Affect this shift: Pt somewhat tearful this evening, delusional- thinks she is 66 y/o although she knows her and the current year; but pt is cooperative with cares. Medication Compliant: Pt compliant with her medications administered whole on a spoon. HS Valium held this shift d/t drowsiness. Assessment Compliant: Pt compliant with assessment. Pt having increased drooling on R side of mouth, will pass along in report. Pt did have large results from magnesium citrate administered earlier today. Response After Interventions: Pt calm, reporting that she feels relieved that she was able to have a BM this evening. Pt assisted into bed, O2 applied, and pt resting quietly at this time.
--- NOTE | 2020-01-26 01:12 | PN ---
DATE: SUBJECTIVE: The patient denies any new medical or neurological complaints. She continues to complain of pain of the knees, mainly on the left side and continue to have resting tremor of both hands. The patient stated her tremor has been less severe today. She was started on ropinirole 0.5 mg twice daily yesterday. OBJECTIVE: GENERAL: Well-developed, well-nourished female, not in acute distress. VITAL SIGNS: Blood pressure 109/64, respiratory rate 18, pulse is 92 regular, temperature 97.6, oxygen saturation 97% on room air. HEENT: Normocephalic, atraumatic, otherwise unremarkable. NECK: Supple. Negative for carotid bruit, lymphadenopathy or thyromegaly. LUNGS: Clear to A and P. CARDIOVASCULAR: Irregular ____ rhythm, normal S1, S2. ABDOMEN: Soft. Bowel sounds positive. EXTREMITIES: Negative for cyanosis, clubbing or edema. NEUROLOGICAL EXAM: Mental Status: The patient is alert and oriented to herself and place. She knows the date of Tuesday, but she did not know the month. Speech is fluent. There is no language dysfunction. Memory, judgment, and abstract thinking are fair. The patient denies hallucination or delusion. Cranial nerves are intact. No focal motor deficits; however, the strength is 4/5 throughout. The patient has a resting tremor of both hands. Sensory examination revealed normal pinprick and light touch senses throughout. Deep tendon reflexes were symmetric and hypoactive with absent Achilles responses. Gait: The patient is wheelchair bound. LABORATORY DATA: Chemistry revealed vitamin B12 is 217 with vitamin D at 10.5, glucose is 84, A1c is 5.4. The iron is normal, but iron saturation is high with low ____ TIBC. IMPRESSION: 1. Parkinson disease. 2. Slowly progressive dementia. 3. Multiple medical problems include hypertension, hyperlipidemia, chronic low back pain, atrial fibrillation, irritable bowel syndrome and dysphagia, vitamin B12 deficiency and vitamin D deficiency. RECOMMENDATIONS: 1. Continue with current medication for Parkinson's including carbidopa/levodopa and ropinirole. 2. Start the patient on vitamin B12 and vitamin D. 3. Continue with current medical and psychiatric care. M Isidoro FISH MD DR: NATO/neil JOB#: [id number] / [id number]
[2020-01-26 05:37] VITALS: BP 113/73
[2020-01-26] MEDS: NEOMYCIN/BACI/POLY/HC OPHTH OINTMENT 3.5GM TUBE. OS SCH ×2 (09:00→19:55)
[2020-01-26] MEDS: LACTOBACILLUS RHAMNOSUS GG 1 CAPSULE. PO SCH ×2 (09:00→19:55)
[2020-01-26] MEDS: CARBIDOPA/LEVODOPA 25/100MG TABLET PO SCH ×3 (09:03→19:55)
[2020-01-26] MEDS: PANTOPRAZOLE 40 MG TABLET. PO SCH (09:03)
[2020-01-26] MEDS: METOPROLOL TART IMMED RELEASE 25 MG TABLET PO SCH ×2 (09:03→19:55)
[2020-01-26] MEDS: diazePAM 5 MG TABLET. PO SCH ×2 (09:03→19:55)
[2020-01-26] MEDS: rOPINIRole 0.5 MG TABLET. PO SCH ×2 (09:04→19:54)
[2020-01-26] MEDS: DULoxetine HCL 60 MG CAPSULE.DR PO SCH (09:04)
[2020-01-26] MEDS: ACETAMINOPHEN 500 MG TABLET PO SCH ×4 (09:04→19:55)
[2020-01-26] MEDS: DOCUSATE SODIUM 100 MG CAPSULE PO SCH (09:04)
[2020-01-26] MEDS: CIPROFLOXACIN HCL 500 MG TABLET PO SCH ×2 (09:04→19:55)
[2020-01-26] MEDS: ARIPiprazole 5 MG TABLET PO SCH (09:04)
[2020-01-26] MEDS: APIXABAN 2.5 MG TABLET PO SCH ×2 (09:04→19:55)
--- NOTE | 2020-01-26 09:50 | NUR ---
Patient is calm and cooperative this morning. Patient stated that she sleep Addendum: 01/26/20 at 0951 by CANDIDO CHRISTIANSON RN slept well. Patient has no further needs at this time.
[2020-01-26 16:12] VITALS: BP 108/71
[2020-01-26 19:48] VITALS: BP 107/64
[2020-01-26] MEDS: MONTELUKAST 10 MG TABLET. PO SCH (19:55)
--- NOTE | 2020-01-26 21:49 | PDOC ---
Exam Note: Wade Note: Please also refer to the separate dictated note~for this date of service dictated separately.~Patient seen individually. Discussed the patient with Nursing staff reviewed the chart.~Reviewed interim history and current functioning. Reviewed vital signs,~Labs/ Radiology~and current medications noted below. Continue current treatment with the changes noted in the dictated addendum note Assessment: Vital Signs/I&O: Vital Signs Date Time Temp Pulse Resp B/P (MAP) Pulse Ox O2 Delivery O2 Flow Rate FiO2 01/26/20 19:55 74 107/64 01/26/20 16:12 98.3 16 99 Nasal Cannula 2.0 I & O 01/25/20 01/25/20 01/26/20 15:00 23:00 07:00 Intake Total 240 ml 860 ml Balance 240 ml 860 ml Current Medications: Meds: Current Medications Medications (Trade) Dose Ordered Sig/Amilcar Route PRN Reason Start Time Stop Time Status Last Admin Dose Admin Aripiprazole (Abilify) 2.5 mg DAILY PO 01/26/20 09:00 01/26/20 09:04 Diazepam (Valium) 5 mg HS PO 01/26/20 21:00 01/29/20 09:00 01/26/20 19:55 I have reviewed the current psychotropics carefully including drug interactions. Risk benefit ratio favors no change other than as noted in my dictated progress note. Diagnosis: Problems: (1) Psychotic disorder (2) History of Parkinson's disease (3) Major depressive disorder with psychotic features SILVIO CERON MD Jan 26, 2020 21:49
--- NOTE | 2020-01-26 23:10 | NUR ---
Pt located in her room this evening sitting in her wheelchair. Pt tearful, delusional and disorganized. Compliant with whole medications. Pt A/O to name and , stating [facility]. Pt tearful, stating her of 66 years had an affair and got the woman .
[2020-01-27 04:28] VITALS: BP 132/75
[2020-01-27] MEDS: PANTOPRAZOLE 40 MG TABLET. PO SCH (08:14)
[2020-01-27] MEDS: CARBIDOPA/LEVODOPA 25/100MG TABLET PO SCH ×3 (08:14→20:08)
[2020-01-27] MEDS: DOCUSATE SODIUM 100 MG CAPSULE PO SCH (08:15)
[2020-01-27] MEDS: APIXABAN 2.5 MG TABLET PO SCH ×2 (08:15→20:08)
[2020-01-27] MEDS: DULoxetine HCL 30 MG CAPSULE.DR PO SCH (08:15)
[2020-01-27] MEDS: CIPROFLOXACIN HCL 500 MG TABLET PO SCH ×2 (08:15→20:08)
[2020-01-27] MEDS: rOPINIRole 0.5 MG TABLET. PO SCH ×2 (08:15→20:08)
[2020-01-27] MEDS: ARIPiprazole 5 MG TABLET PO SCH (08:15)
[2020-01-27] MEDS: NEOMYCIN/BACI/POLY/HC OPHTH OINTMENT 3.5GM TUBE. OS SCH ×2 (08:16→20:08)
[2020-01-27] MEDS: LACTOBACILLUS RHAMNOSUS GG 1 CAPSULE. PO SCH ×2 (08:16→20:08)
[2020-01-27] MEDS: ACETAMINOPHEN 500 MG TABLET PO SCH ×4 (08:16→20:08)
[2020-01-27] MEDS: METOPROLOL TART IMMED RELEASE 25 MG TABLET PO SCH ×2 (08:16→20:08)
[2020-01-27] MEDS: diazePAM 5 MG TABLET. PO SCH ×2 (08:16→20:08)
--- NOTE | 2020-01-27 09:37 | NUR ---
Patient is very lethargic this morning. Patient only able to say a few words before going back to bed. Patient encouraged to eat breakfast.
[2020-01-27 16:06] VITALS: BP 122/76
[2020-01-27] MEDS: MONTELUKAST 10 MG TABLET. PO SCH (20:08)
--- NOTE | 2020-01-27 21:56 | PDOC ---
Exam Note: Wade Note: Please also refer to the separate dictated note~for this date of service dictated separately.~Patient seen individually. Discussed the patient with Nursing staff reviewed the chart.~Reviewed interim history and current functioning. Reviewed vital signs,~Labs/ Radiology~and current medications noted below. Continue current treatment with the changes noted in the dictated addendum note Assessment: Vital Signs/I&O: Vital Signs Date Time Temp Pulse Resp B/P (MAP) Pulse Ox O2 Delivery O2 Flow Rate FiO2 01/27/20 20:08 69 122/76 01/27/20 19:32 98.7 92 01/27/20 16:06 20 2.0 01/26/20 16:12 Nasal Cannula I & O 01/26/20 01/26/20 01/27/20 15:00 23:00 07:00 Intake Total 120 ml 360 ml Balance 120 ml 360 ml Current Medications: Meds: Current Medications Medications (Trade) Dose Ordered Sig/Amilcar Route PRN Reason Start Time Stop Time Status Last Admin Dose Admin Diazepam (Valium) 2.5 mg DAILY PO 01/27/20 09:00 01/30/20 20:00 01/27/20 08:16 Duloxetine HCl (Cymbalta) 90 mg DAILY PO 01/27/20 09:00 01/30/20 20:00 01/27/20 08:15 I have reviewed the current psychotropics carefully including drug interactions. Risk benefit ratio favors no change other than as noted in my dictated progress note. Diagnosis: Problems: (1) Psychotic disorder (2) History of Parkinson's disease (3) Major depressive disorder with psychotic features SILVIO CERON MD Jan 27, 2020 21:56
--- NOTE | 2020-01-27 22:10 | NUR ---
Pt yelling out at start of shift, stating she wants to go home. When approached to administer HS medications, pt appeared to be playing possum- refusing to acknowledge this nurse or open her eyes. Medications consumed with resistance. Pt able to make her needs known and did speak when she wanted something. Will continue to monitor.
[2020-01-28] MEDS ORDERED: ONDANSETRON ODT 4 MG TAB.RAPDIS PO PRN (00:30)
[2020-01-28 05:43] VITALS: BP 135/82
[2020-01-28] MEDS: ARIPiprazole 5 MG TABLET PO SCH (08:13)
[2020-01-28] MEDS: DULoxetine HCL 30 MG CAPSULE.DR PO SCH (08:13)
[2020-01-28] MEDS: APIXABAN 2.5 MG TABLET PO SCH ×2 (08:13→19:51)
[2020-01-28] MEDS: rOPINIRole 0.5 MG TABLET. PO SCH ×2 (08:14→19:51)
[2020-01-28] MEDS: DOCUSATE SODIUM 100 MG CAPSULE PO SCH (08:14)
[2020-01-28] MEDS: diazePAM 5 MG TABLET. PO SCH ×2 (08:14→19:51)
[2020-01-28] MEDS: LACTOBACILLUS RHAMNOSUS GG 1 CAPSULE. PO SCH ×2 (08:14→19:51)
[2020-01-28] MEDS: CARBIDOPA/LEVODOPA 25/100MG TABLET PO SCH ×3 (08:14→19:51)
[2020-01-28] MEDS: CIPROFLOXACIN HCL 500 MG TABLET PO SCH ×2 (08:14→19:51)
[2020-01-28] MEDS: PANTOPRAZOLE 40 MG TABLET. PO SCH (08:14)
[2020-01-28] MEDS: ACETAMINOPHEN 500 MG TABLET PO SCH ×4 (08:14→19:51)
[2020-01-28] MEDS: METOPROLOL TART IMMED RELEASE 25 MG TABLET PO SCH ×2 (08:15→19:52)
[2020-01-28] MEDS: NEOMYCIN/BACI/POLY/HC OPHTH OINTMENT 3.5GM TUBE. OS SCH ×2 (08:30→19:52)
--- NOTE | 2020-01-28 10:54 | NUR ---
Patient calm this morning. Tried sitting on side of bed but kept falling backwards and saying, "i don't know why I can't sit up." Pt transferred to wheelchair with 2 assist, as RN concerned that patient would weight during transfer. Pt compliant with medications given on a spoon. Pt is giving herself drinks. Pt talking with RN except when RN asks orientation questions, then patient stops talking. When working with OT today, pt wheeling self around in wheelchair yelling, "Oh God, please help me walk!". Pt is able to walk with walker, but patients current behaviors are helpless and attention seeking. Pt continues to wheel self around yelling, "help me walk!". WCTM.
[2020-01-28 16:09] VITALS: BP 118/73
--- NOTE | 2020-01-28 17:11 | NUR ---
RN in [facility], heard patient yelling, "help! Im on the floor!". RN entered room, pt against bed, on the floor. Believe this to be a behavior, patient is attention seeking, pt did this yesterday and this is one of the reasons patient is here. Pt assisted back to bed, pt not harmed. WCTM.
[2020-01-28] MEDS: MONTELUKAST 10 MG TABLET. PO SCH (19:51)
--- NOTE | 2020-01-28 21:52 | PDOC ---
Exam Note: Wade Note: Please also refer to the separate dictated note~for this date of service dictated separately.~Patient seen individually. Discussed the patient with Nursing staff reviewed the chart.~Reviewed interim history and current functioning. Reviewed vital signs,~Labs/ Radiology~and current medications noted below. Continue current treatment with the changes noted in the dictated addendum note Assessment: Vital Signs/I&O: Vital Signs Date Time Temp Pulse Resp B/P (MAP) Pulse Ox O2 Delivery O2 Flow Rate FiO2 01/28/20 19:52 72 118/73 01/28/20 16:09 97.6 16 94 01/28/20 05:43 2.0 01/26/20 16:12 Nasal Cannula I & O 01/27/20 01/27/20 01/28/20 15:00 23:00 07:00 Intake Total 480 ml 120 ml Balance 480 ml 120 ml Current Medications: I have reviewed the current psychotropics carefully including drug interactions. Risk benefit ratio favors no change other than as noted in my dictated progress note. Diagnosis: Problems: (1) Psychotic disorder (2) History of Parkinson's disease (3) Major depressive disorder with psychotic features SILVIO CERON MD Jan 28, 2020 21:52
--- NOTE | 2020-01-28 23:48 | NUR ---
Pt located in her bed all evening. Pt once again ignored this RN and refused to acknowledge or answer questions. Consumed medications whole on a spoon. Pt intermittently yelling out from her room all evening.
[2020-01-29 05:48] VITALS: BP 111/61
--- NOTE | 2020-01-29 06:53 | PDOC ---
Exam Note: Wade Note: This note is a late entry for 01/26/2020 covers elements not covered in my initial note. Subjective: The patient was evaluated face to face in the evening of 01/26/2020 with Jose CEDENO. The patient slept 7 hours previous night. She was tearful previous evening, told the staff that she was 66 years old. She remains depressed, somewhat paranoid, still that her is having an affair and I processed this with her. She has been somewhat sedated. Review of Systems: Ambulation impaired in wheelchair. No CV, , pulmonary, eye, ENT system symptoms on review. Reliability varies. Mental Status Exam: Oriented to herself and situation. Speech has some latency, coherent. Often response is monosyllabic. Abstraction is fair. Computation is impaired. Language function is intact. Laboratory Data: Reviewed. Impression: Major depresssive disorder with psychotic features. Psychotic disorder. History of Parkinson disease. Plan: The patient is currently on Cymbalta 60 mg b.i.d. We will reduce to 90 mg a day for 3 days, then 60 mg a day thereafter. Valium is 5 mg b.i.d. She has been quite sedated. We will reduce to 2.5 mg in the morning and 5 mg in the evening for 3 days, then 2.5 mg twice a day. Maintain Abilify 2.5 mg a day. Rest unchanged. Assessment: Vital Signs/I&O: Vital Signs Date Time Temp Pulse Resp B/P (MAP) Pulse Ox O2 Delivery O2 Flow Rate FiO2 01/29/20 05:48 97.7 81 18 111/61 (78) 97 2.0 01/26/20 16:12 Nasal Cannula I & O 01/28/20 01/28/20 01/29/20 15:00 23:00 07:00 Intake Total 540 ml 180 ml 80 ml Balance 540 ml 180 ml 80 ml Current Medications: I have reviewed the current psychotropics carefully including drug interactions. Risk benefit ratio favors no change other than as noted in my dictated progress note. Diagnosis: Problems: (1) Psychotic disorder (2) History of Parkinson's disease (3) Major depressive disorder with psychotic features SILVIO CERON MD Jan 29, 2020 06:53
--- NOTE | 2020-01-29 07:32 | PDOC ---
Exam Note: Wade Note: This note is a late entry for 01/27/2020 covers elements not covered in my initial note. Subjective: The patient was evaluated on telehealth rounds in the evening of 01/27/2020 with Jordan Azevedo RN. Nursing report was Jose CEDENO. The patient slept 6-3/4 hours previous night. Appetite is 75%. She is somewhat lethargic, tired not very verbal, tearful in the morning. Review of Systems: No CV, , pulmonary, eye system symptoms on review. Gait unsteady in wheelchair. Reliability varies. Mental Status Exam: Oriented to herself and situation. Speech is coherent, has some latency. Often response is monosyllabic. Abstraction is fair. Computation is impaired. Language function is intact. Mood and affect is somewhat withdrawn. Laboratory Data: Reviewed. Impression: Major depressive disorder with psychotic features. Psychotic disorder. History of Parkinson disease. Plan: We will change the Abilify 2.5 mg in the morning to the nighttime dosage to help reduce sedation. We will go ahead and taper the Valium which is being done down to 2.5 mg b.i.d. starting 01/30/20 having reduced it to 2.5 mg a.m. and 5 mg h.s., in the interim. Continue ReQuip, Cymbalta, and Sinemet. Adjust further as clinically indicated. Assessment: Vital Signs/I&O: Vital Signs Date Time Temp Pulse Resp B/P (MAP) Pulse Ox O2 Delivery O2 Flow Rate FiO2 01/29/20 05:48 97.7 81 18 111/61 (78) 97 2.0 01/26/20 16:12 Nasal Cannula I & O 01/28/20 01/28/20 01/29/20 15:00 23:00 07:00 Intake Total 540 ml 180 ml 80 ml Balance 540 ml 180 ml 80 ml Current Medications: I have reviewed the current psychotropics carefully including drug interactions. Risk benefit ratio favors no change other than as noted in my dictated progress note. Diagnosis: Problems: (1) Psychotic disorder (2) History of Parkinson's disease (3) Urinary tract infection (4) Major depressive disorder with psychotic features SILVIO CERON MD Jan 29, 2020 07:32
[2020-01-29] MEDS: ARIPiprazole 5 MG TABLET PO SCH (09:00)
[2020-01-29] MEDS: PANTOPRAZOLE 40 MG TABLET. PO SCH (09:00)
[2020-01-29] MEDS: METOPROLOL TART IMMED RELEASE 25 MG TABLET PO SCH ×2 (09:00→20:13)
[2020-01-29] MEDS: diazePAM 5 MG TABLET. PO SCH (09:00)
[2020-01-29] MEDS: rOPINIRole 0.5 MG TABLET. PO SCH ×2 (09:00→20:13)
[2020-01-29] MEDS: DOCUSATE SODIUM 100 MG CAPSULE PO SCH (09:01)
[2020-01-29] MEDS: CIPROFLOXACIN HCL 500 MG TABLET PO SCH ×2 (09:01→20:13)
[2020-01-29] MEDS: APIXABAN 2.5 MG TABLET PO SCH ×2 (09:01→20:12)
[2020-01-29] MEDS: DULoxetine HCL 30 MG CAPSULE.DR PO SCH (09:01)
[2020-01-29] MEDS: CARBIDOPA/LEVODOPA 25/100MG TABLET PO SCH ×3 (09:01→20:13)
[2020-01-29] MEDS: ACETAMINOPHEN 500 MG TABLET PO SCH ×5 (09:01→20:13)
[2020-01-29] MEDS: LACTOBACILLUS RHAMNOSUS GG 1 CAPSULE. PO SCH ×2 (09:01→20:13)
--- NOTE | 2020-01-29 10:08 | NUR ---
EMIL faxed over updates to the social worker school at [facility].
[2020-01-29] MEDS: NEOMYCIN/BACI/POLY/HC OPHTH OINTMENT 3.5GM TUBE. OS SCH ×2 (10:17→20:13)
--- NOTE | 2020-01-29 11:49 | NUR ---
Patient laying in bed. She had just finished breakfast. Patient ignoring nurse and staring at nurse, patient has not answered any questions that nurse asked. Patient dose not seem to be in pain. Staff assisted patient to shower. Patient compliant with medications given a few at a time on a spoon by the nurse. Patient has pronounced hand tremor but is able to hold cup and drink.
[2020-01-29 16:11] VITALS: BP 111/69
--- NOTE | 2020-01-29 18:33 | NUR ---
Refused 1700 tylenol, stating it "makes her sleepy". Nurse asked patient multiple times, patient continued to refuse. Addendum: 01/29/20 at 1837 by BAILEE LONG RN As nurse left the room patient called her back and stated that she DID want the tylenol after all. Patient is tearful but does not want to talk about what is upsetting her. Tylenol administered as ordered.
[2020-01-29 20:06] VITALS: BP 114/76
[2020-01-29] MEDS: MONTELUKAST 10 MG TABLET. PO SCH (20:12)
--- NOTE | 2020-01-29 21:59 | PDOC ---
Exam Note: Wade Note: Please also refer to the separate dictated note~for this date of service dictated separately.~Patient seen individually. Discussed the patient with Nursing staff reviewed the chart.~Reviewed interim history and current functioning. Reviewed vital signs,~Labs/ Radiology~and current medications noted below. Continue current treatment with the changes noted in the dictated addendum note Assessment: Vital Signs/I&O: Vital Signs Date Time Temp Pulse Resp B/P (MAP) Pulse Ox O2 Delivery O2 Flow Rate FiO2 01/29/20 20:13 93 114/76 01/29/20 20:06 98.4 22 94 Room Air 01/29/20 16:11 2.0 I & O 01/28/20 01/28/20 01/29/20 15:00 23:00 07:00 Intake Total 540 ml 180 ml 80 ml Balance 540 ml 180 ml 80 ml Current Medications: I have reviewed the current psychotropics carefully including drug interactions. Risk benefit ratio favors no change other than as noted in my dictated progress note. Diagnosis: Problems: (1) Psychotic disorder (2) History of Parkinson's disease (3) Major depressive disorder with psychotic features SILVIO CERON MD Jan 29, 2020 21:59
--- NOTE | 2020-01-29 22:16 | NUR ---
Nursing Note: Location of Patient during Assessment: Pt withdrawn to her room, lying in bed awake. Behaviors Mood and Affect this shift: Pt withdrawn but calm, answering questions and interactive when approached by staff this evening. No delusions voiced at this time Medication Compliant: Compliant with medications administered whole on a spoon. Assessment Compliant: Cooperative and compliant with assessment. Response After Interventions: Pt calm, pleasant, and cooperative.
[2020-01-30 06:35] VITALS: BP 139/79
--- NOTE | 2020-01-30 07:11 | PDOC ---
Exam Note: Wade Note: This note is a late entry for 01/28/2020 covers elements not covered in my initial note. Subjective: The patient was evaluated face to face in the evening 01/28/2020 with Fani CEDENO. The patient slept 8 hours previous night. The patient has been more tearful, depressed at times, refusing to answer questions. She is still somewhat delusional but not as fixated and delusional about her having an affair like she was a couple of days back. Review of Systems: No CV, , pulmonary, eye system symptoms on review. Ambulation impaired in wheelchair. Mental Status Exam: Oriented to herself and situation. She was somewhat tearful as I met with her individually, less paranoid. Speech some latency, coherent. Attention span is short. Mood and affect is somewhat withdrawn. No suicidal or homicidal ideation. Laboratory Data: Reviewed. Impression: Major depressive disorder with psychotic features. Psychotic disorder. History of Parkinson disease. Plan: Continue psychotropics from initial note. We have adjusted the Abilify. Reduce the Cymbalta which will go down to 60 mg a day on 01/29, currently at 90 mg a day. She is on Sinemet and ReQuip for her Parkinsons. Valium has been tapered down from 10 mg a day to 7.5 mg a day and on 01/29 we will go down to 5 mg a day, and Zyprexa is p.r.n. Assessment: Vital Signs/I&O: Vital Signs Date Time Temp Pulse Resp B/P (MAP) Pulse Ox O2 Delivery O2 Flow Rate FiO2 01/30/20 06:35 97.7 83 20 139/79 (99) 98 2.0 01/29/20 20:06 Room Air I & O 01/29/20 01/29/20 01/30/20 15:00 23:00 07:00 Intake Total 480 ml 240 ml Balance 480 ml 240 ml Current Medications: I have reviewed the current psychotropics carefully including drug interactions. Risk benefit ratio favors no change other than as noted in my dictated progress note. Diagnosis: Problems: (1) Psychotic disorder (2) History of Parkinson's disease (3) Major depressive disorder with psychotic features SILVIO CERON MD Jan 30, 2020 07:11
--- NOTE | 2020-01-30 07:24 | PDOC ---
Exam Note: Wade Note: This note is a late entry for 01/29/2020 covers elements not covered in my initial note. Subjective: The patient was evaluated on telehealth rounds in the evening of 01/29/2020 because of the COVID-19 pandemic restrictions with [facility] nursing aid. Nursing report with Mini CEDENO. The patient slept 7-1/2 hours previous night. The patient pretended as if she does not hear. Her antibiotic course for the UTI has been completed. She put herself on the floor twice partly because of her agitation. Review of Systems: No CV, , pulmonary, eye system symptoms on review. Ambulation impaired. Mental Status Exam: Oriented to herself and situation. She was tearful, anxious as I met with her in the evening on telehealth rounds. Speech is coherent, has some latency. Abstraction is fair. Computation is impaired. [place] function is intact. Mood and affect is somewhat withdrawn. She is still delusional about her having affair but less fixated on this as I processed this with her. No suicidal or homicidal ideation. Laboratory Data: Reviewed. Impression: Major depressive disorder with psychotic features. Psychotic disorder. History of Parkinson disease. Plan: No change from initial note. Assessment: Vital Signs/I&O: Vital Signs Date Time Temp Pulse Resp B/P (MAP) Pulse Ox O2 Delivery O2 Flow Rate FiO2 01/30/20 06:35 97.7 83 20 139/79 (99) 98 2.0 01/29/20 20:06 Room Air I & O 01/29/20 01/29/20 01/30/20 15:00 23:00 07:00 Intake Total 480 ml 240 ml Balance 480 ml 240 ml Current Medications: I have reviewed the current psychotropics carefully including drug interactions. Risk benefit ratio favors no change other than as noted in my dictated progress note. Diagnosis: Problems: (1) Psychotic disorder (2) History of Parkinson's disease (3) Major depressive disorder with psychotic features SILVIO CERON MD Jan 30, 2020 07:24
[2020-01-30] MEDS: NEOMYCIN/BACI/POLY/HC OPHTH OINTMENT 3.5GM TUBE. OS SCH ×2 (09:00→20:37)
[2020-01-30] MEDS: POLYETHYLENE GLYCOL 3350 17 GM PACKET. PO PRN (10:04)
[2020-01-30] MEDS: LACTOBACILLUS RHAMNOSUS GG 1 CAPSULE. PO SCH ×2 (10:05→20:37)
[2020-01-30] MEDS: CARBIDOPA/LEVODOPA 25/100MG TABLET PO SCH ×3 (10:05→20:37)
[2020-01-30] MEDS: DOCUSATE SODIUM 100 MG CAPSULE PO SCH (10:05)
[2020-01-30] MEDS: ARIPiprazole 5 MG TABLET PO SCH (10:06)
[2020-01-30] MEDS: PANTOPRAZOLE 40 MG TABLET. PO SCH (10:06)
[2020-01-30] MEDS: diazePAM 5 MG TABLET. PO SCH ×2 (10:06→20:38)
[2020-01-30] MEDS: DULoxetine HCL 30 MG CAPSULE.DR PO SCH (10:07)
[2020-01-30] MEDS: rOPINIRole 0.5 MG TABLET. PO SCH ×2 (10:07→20:37)
[2020-01-30] MEDS: METOPROLOL TART IMMED RELEASE 25 MG TABLET PO SCH ×2 (10:07→20:37)
[2020-01-30] MEDS: ACETAMINOPHEN 500 MG TABLET PO SCH ×4 (10:07→20:37)
[2020-01-30] MEDS: APIXABAN 2.5 MG TABLET PO SCH ×2 (10:08→20:37)
--- NOTE | 2020-01-30 12:41 | NUR ---
Patient very tearful this morning. First stating that she needed deodorant because she "stinks". Nurse provided deodorant and helped patient apply it. Patient then stating she is "allergic to eggs" and has hives. Nurse examined pt skin, no hives present and eggs are not on her allergy list. Patient compliant with medications taken whole, a few at a time given by nurse. Patient stated that she sees "bugs" on the ceiling and that the devil speaks to her, but denied that this was happening at this time. She also stated that the devil wrapped her up in chicken wire". Pt worked with OT and sat in the chair for a couple of hours this morning. Patient requested miralax. PRN miralax given per order mixed into cranberry juice.
[2020-01-30 16:16] VITALS: BP 151/77
--- NOTE | 2020-01-30 18:30 | NUR ---
Patient is now crying because her dinner is cold. She stated that she did not know it was for her. ([employer] ST[employer] CHANNELER told her the food was for her when she brought it into the room). Nurse warmed food in microwave and brought it back to patient. Patient still crying, now she states that she "might throw up" because "it doesn't take much to make her throw up". Nurse reassured her that if she vomits we can clean it up. Will provide vomit basin. Patient continues to cry and is not comforted by nurse.
[2020-01-30 20:18] VITALS: BP 161/97
[2020-01-30] MEDS: MONTELUKAST 10 MG TABLET. PO SCH (20:37)
[2020-01-30] MEDS: ZIPRASIDONE 20 MG CAPSULE. PO SCH (20:37)
--- NOTE | 2020-01-30 21:46 | PDOC ---
Exam Note: Wade Note: Please also refer to the separate dictated note~for this date of service dictated separately.~Patient seen individually. Discussed the patient with Nursing staff reviewed the chart.~Reviewed interim history and current functioning. Reviewed vital signs,~Labs/ Radiology~and current medications noted below. Continue current treatment with the changes noted in the dictated addendum note Assessment: Vital Signs/I&O: Vital Signs Date Time Temp Pulse Resp B/P (MAP) Pulse Ox O2 Delivery O2 Flow Rate FiO2 01/30/20 21:35 97.9 97 01/30/20 20:37 71 161/97 01/30/20 16:16 15 01/30/20 06:35 2.0 01/29/20 20:06 Room Air I & O 01/29/20 01/29/20 01/30/20 15:00 23:00 07:00 Intake Total 480 ml 240 ml Balance 480 ml 240 ml Current Medications: Meds: Current Medications Medications (Trade) Dose Ordered Sig/Amilcar Route PRN Reason Start Time Stop Time Status Last Admin Dose Admin Diazepam (Valium) 2.5 mg BID PO 01/30/20 21:00 01/30/20 20:38 Ziprasidone (Geodon) 20 mg HS PO 01/30/20 21:00 02/01/20 23:00 01/30/20 20:37 I have reviewed the current psychotropics carefully including drug interactions. Risk benefit ratio favors no change other than as noted in my dictated progress note. Diagnosis: Problems: (1) Psychotic disorder (2) History of Parkinson's disease (3) Major depressive disorder with psychotic features SILVIO CERON MD Jan 30, 2020 21:46
--- NOTE | 2020-01-30 22:59 | NUR ---
Nursing Note: Location of Patient during Assessment: Pt withdrawn to room, lying in bed awake. Behaviors Mood and Affect this shift: Pt with a flat affect, disorganized. Pt does not believe she a Medication Compliant: Assessment Compliant: Response After Interventions: Addendum: 01/30/20 at 2307 by ABEL SAENZ RN Pt delusional- she does not believe that she was born in 1935 and that she is 84 years old. Pt asked me if she was born in 1983. Pt has not been tearful or crying this evening. Pt cooperative with assessment and cares and compliant with medications administered whole on a spoon.
[2020-01-31 07:05] VITALS: BP 133/84
[2020-01-31] MEDS: NEOMYCIN/BACI/POLY/HC OPHTH OINTMENT 3.5GM TUBE. OS SCH ×2 (08:14→20:14)
[2020-01-31] MEDS: rOPINIRole 0.5 MG TABLET. PO SCH ×2 (08:15→20:04)
[2020-01-31] MEDS: APIXABAN 2.5 MG TABLET PO SCH ×2 (08:15→20:04)
[2020-01-31] MEDS: ACETAMINOPHEN 500 MG TABLET PO SCH ×4 (08:15→20:04)
[2020-01-31] MEDS: DULoxetine HCL 60 MG CAPSULE.DR PO SCH (08:15)
[2020-01-31] MEDS: CARBIDOPA/LEVODOPA 25/100MG TABLET PO SCH ×3 (08:15→20:04)
[2020-01-31] MEDS: DOCUSATE SODIUM 100 MG CAPSULE PO SCH (08:15)
[2020-01-31] MEDS: PANTOPRAZOLE 40 MG TABLET. PO SCH (08:15)
[2020-01-31] MEDS: LACTOBACILLUS RHAMNOSUS GG 1 CAPSULE. PO SCH ×2 (08:16→20:06)
[2020-01-31] MEDS: diazePAM 5 MG TABLET. PO SCH ×2 (08:16→20:05)
[2020-01-31] MEDS: METOPROLOL TART IMMED RELEASE 25 MG TABLET PO SCH ×2 (08:16→20:06)
[2020-01-31 09:04] LABS: BASO % 0 % (0-3); EOS # 0.3 x10^3/uL (0.0-0.7); EOS % 6 % (0-3); HEMATOCRIT 39.2 % (36.0-47.0); LYMPH # 1.8 x10^3/uL (1.0-4.8); LYMPH % 33 % (24-48); MEAN CORPUSCULAR HEMOGLOBIN 30 pg (25-35); MEAN CORPUSCULAR HGB CONC 33 g/dL (31-37); MEAN CORPUSCULAR VOLUME 91 fL (79-100); MONO # 0.4 x10^3/uL (0.0-1.1); MONO % 8 % (0-9); NEUT # 2.9 x10^3uL (1.8-7.7); NEUT % 52 % (31-73); PLATELET COUNT 282 x10^3/uL (140-400); RED CELL DISTRIBUTION WIDTH 14.9 % (11.5-14.5); WHITE BLOOD COUNT 5.5 x10^3/uL (4.0-11.0)
[2020-01-31 09:17] LABS: ALBUMIN 3.3 g/dL (3.4-5.0); CALCIUM 9.6 mg/dL (8.5-10.1); CREATININE 0.9 mg/dL (0.6-1.0); GFR 59.7; TOTAL BILIRUBIN 0.4 mg/dL (0.2-1.0); TOTAL PROTEIN 6.7 g/dL (6.4-8.2)
[2020-01-31 09:18] LABS: MAGNESIUM 1.9 mg/dL (1.8-2.4); POTASSIUM 4.4 mmol/L (3.5-5.1)
--- NOTE | 2020-01-31 11:20 | NUR ---
WEEKLY ACTIVITY THERAPY NOTE Date of Admission:01/22 Date of AT Assessment:01/23 Precipitating behaviors that initiated intake and admission:Delusional-thinks staff are having affair with spouse, visual and auditory hallucinations, expresses "I just want to " puts herself on floor, mood lability, irritable, agitated, pacing Goal aimed:increase self-esteem development and stress management/relaxation skills Initial Goal:Pt will participate in at least one individual or group Activity Therapy session per week. Weekly progress towards goal: achieved 06/06 Group participation level: 1 mod Weekly highlights: accepted banana split on Sunday 01/28 despite some hesitation Behaviors observed: usually in room, tearful at times, yelling out from bed Plan: change goal to: Pt. will participate in at least two individual Activity Therapy sessions before discharge Beneficial adaptations:
--- NOTE | 2020-01-31 12:15 | NUR ---
patient compliant with medications taken whole, a few at a time, on a spoon. Today patient "unable" to hold her own water. She has been helpless when working with PT and clingy with staff (please don't leave me). Patient is able to transfer independently or with stand-by assist but often does less than she is capable of. Patient remains tearful most of the time. Staff advised to insure that patient is in the chair for all meals and not in her bed.
--- NOTE | 2020-01-31 12:26 | TX PLAN ---
Interdisciplinary Tx Plan Admission Information Jan 23, 2020 at 11:13 Legal Status (on Admission): Voluntary DPOA/Guardian Name: Prakash Fitch Contact Other Contact Name: [facility] Other Contact Verified Code Status: DNR Allergies: Coded Allergies: Erythromycin Base (Verified Allergy, Unknown, 11/12/13) Moexipril (Verified Allergy, Unknown, 11/12/13) alprazolam (Verified Allergy, Unknown, 11/12/13) azithromycin (Verified Allergy, Unknown, 11/12/13) cefuroxime (Verified Allergy, Unknown, 11/09/13) clindamycin (Verified Allergy, Unknown, 11/09/13) codeine (Verified Allergy, Unknown, 11/12/13) hydrochlorothiazide (Verified Allergy, Unknown, 11/12/13) hydrocodone (Verified Allergy, Unknown, 11/12/13) metronidazole (Verified Allergy, Unknown, 11/12/13) Diagnoses Primary Diagnosis: Psychotic D/O unspecified Reasons for Admission: Delusions, Agitated, Hallucinations, Suspicious/paranoid, Poor impulse control, Other Problem in Patient's Words: Thinks that a lot of this has to do with her having multiple UTI's. Additional Admission Comments: According to the intake, pt is delusional and thinks staff are having an affair with her . Pt is having visual and auditory hallucinations, expressing SI "I just want to " putting herself on the floor, mood lability, irritable, agitated and pacing. Problems Active Problems: delusional SI without definite plan mood lability Inactive Problems: Medication management Pt Strengths/Limitations Ability for Graham: Poor Cognitive Functioning/Ability: Poor Communication Skills/Ability: Fair Financial Resources: Fair Insight/Judgement: Poor Intellectual Ability: Fair Physical Health: Poor Social Skills: Fair Stability in Family: Good Stability in School/Work: Poor Verbal Skills: Fair Discharge Criteria Discharge Criteria: No need for close observ., Adequate arrangements @DC, Improved behavior, Improved mood/thought Preliminary Discharge Plan Preliminary DC Plan: Current Living Arrange. Special Precautions Fall Risk: Low Initial D/C Plan Pt will return to [facility] Identified Discharge Needs: Continued psychiatric services Currently Utilized Resources Currently Utilized Resources/P: Primary care physician Referrals Community Resources: Psychiatrist Identified Problems/Hx/Goals Objectives/Short-Term Goals Short Term Goals: Dec. Hallucination/Delus, Dec. Outbursts, Improved Social Skills, Medication Stabilization, Promote Coping Skill Short Term Goals in Patient's: "Can I get a phone to call my " Interventions/Frequency Staff Interventions/Frequency&: Psychiatrist to assess pt at least 3x per week. Social Work to asses pt at least 2x per week. Nursing to assess behavior, medications and complete 15 minute checks daily. Encourage group participation or 1:1 engagement based off Activity Dept assessment. 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 Education: Pt graduated high school (12th grade) Community Follow-up Primary Care physician Updates to LT facility Treatment Plan Explained Patient/Medical Sales Specialist had this treatment plan explained to him/her as indicated by the signature below and has been given the opportunity to ask questions and make suggestions: Date: Patient/Medical Sales Specialist Signature: Status Update Update Pt is eating roughly 50% of meals and sleeping on average of 7 hours per night. Pt continues to have a flat affect, and chooses to talk to certain people during times of cares. Pt is often found tearful or crying throughout the day and continues to exhibit some psychotic thoughts. Pt reports that there is a staff member sleeping with another pt and has a baby; with a picture hung up on the wall of the baby. Pt will have an increase in her Geodon on 02/01 to 40mg q HS and have her Valium decreased from 2.5mg BID to 2.5mg q HS after 3 days. Pt will plan to return to [facility] upon stabilization and SW will continue to work with all involved parties. MATTEO SALGUERO Jan 31, 2020 12:26
--- NOTE | 2020-01-31 12:43 | NUR ---
EMIL attempted to contact pt with an update and ended up leaving a message asking for him to call EMIL back when available.
[2020-01-31 16:19] VITALS: BP 125/76
[2020-01-31] MEDS: ZIPRASIDONE 20 MG CAPSULE. PO SCH (20:04)
[2020-01-31] MEDS: MONTELUKAST 10 MG TABLET. PO SCH (20:05)
--- NOTE | 2020-01-31 21:54 | PDOC ---
Exam Note: Wade Note: Please also refer to the separate dictated note~for this date of service dictated separately.~Patient seen individually. Discussed the patient with Nursing staff reviewed the chart.~Reviewed interim history and current functioning. Reviewed vital signs,~Labs/ Radiology~and current medications noted below. Continue current treatment with the changes noted in the dictated addendum note Assessment: Vital Signs/I&O: Vital Signs Date Time Temp Pulse Resp B/P (MAP) Pulse Ox O2 Delivery O2 Flow Rate FiO2 01/31/20 20:06 75 125/76 01/31/20 16:19 98.6 20 94 01/31/20 07:05 2.0 01/29/20 20:06 Room Air I & O 01/30/20 01/30/20 01/31/20 15:00 23:00 07:00 Intake Total 440 ml 320 ml Balance 440 ml 320 ml Labs: Laboratory Tests Test 01/31/20 08:38 White Blood Count 5.5 x10^3/uL (4.0-11.0) Red Blood Count 4.30 x10^6/uL (3.50-5.40) Hemoglobin 13.0 g/dL (12.0-15.5) Hematocrit 39.2 % (36.0-47.0) Mean Corpuscular Volume 91 fL (79-100) Mean Corpuscular Hemoglobin 30 pg (25-35) Mean Corpuscular Hemoglobin Concent 33 g/dL (31-37) Red Cell Distribution Width 14.9 % (11.5-14.5) H Platelet Count 282 x10^3/uL (140-400) Neutrophils (%) (Auto) 52 % (31-73) Lymphocytes (%) (Auto) 33 % (24-48) Monocytes (%) (Auto) 8 % (0-9) Eosinophils (%) (Auto) 6 % (0-3) H Basophils (%) (Auto) 0 % (0-3) Neutrophils # (Auto) 2.9 x10^3uL (1.8-7.7) Lymphocytes # (Auto) 1.8 x10^3/uL (1.0-4.8) Monocytes # (Auto) 0.4 x10^3/uL (0.0-1.1) Eosinophils # (Auto) 0.3 x10^3/uL (0.0-0.7) Basophils # (Auto) 0.0 x10^3/uL (0.0-0.2) Sodium Level 142 mmol/L (136-145) Potassium Level 4.4 mmol/L (3.5-5.1) Chloride Level 106 mmol/L (98-107) Carbon Dioxide Level 35 mmol/L (21-32) H Anion Gap 1 (6-14) L Blood Urea Nitrogen 11 mg/dL (7-20) Creatinine 0.9 mg/dL (0.6-1.0) Estimated GFR (Cockcroft-Gault) 59.7 BUN/Creatinine Ratio 12 (6-20) Glucose Level 96 mg/dL (70-99) Calcium Level 9.6 mg/dL (8.5-10.1) Magnesium Level 1.9 mg/dL (1.8-2.4) Total Bilirubin 0.4 mg/dL (0.2-1.0) Aspartate Amino Transferase (AST) 15 U/L (15-37) Alanine Aminotransferase (ALT) 11 U/L (14-59) L Alkaline Phosphatase 129 U/L (46-116) H Total Protein 6.7 g/dL (6.4-8.2) Albumin 3.3 g/dL (3.4-5.0) L Albumin/Globulin Ratio 1.0 (1.0-1.7) Vitamin B12 Level 534 pg/mL (247-911) Current Medications: Meds: Current Medications Medications (Trade) Dose Ordered Sig/Amilcar Route PRN Reason Start Time Stop Time Status Last Admin Dose Admin Duloxetine HCl (Cymbalta) 60 mg DAILY PO 01/31/20 09:00 01/31/20 08:15 I have reviewed the current psychotropics carefully including drug interactions. Risk benefit ratio favors no change other than as noted in my dictated progress note. Diagnosis: Problems: (1) Psychotic disorder (2) History of Parkinson's disease (3) Major depressive disorder with psychotic features SILVIO CERON MD Jan 31, 2020 21:54
--- NOTE | 2020-02-01 03:20 | NUR ---
Nursing Note The patient was disorganized and tearful this shift. The patient was upset due to staff not putting her to bed as soon as she would like. The patient was compliant with her assessment as well as her medications. The patient is currently sleeping in her room.
[2020-02-01 06:23] VITALS: BP 146/90
--- NOTE | 2020-02-01 06:53 | PDOC ---
Exam Note: Wade Note: This note is a late entry for 01/30/2020 covers elements not covered in my initial note. Subjective: The patient was evaluated face to face in the evening of 01/30/2020 with Mini CEDENO. The patient slept 7-1/2 hours previous night. In the morning the patient was yelling I stink. I need deodorant. Nursing staff assisted with this. She was yelling again. I itch. Then she was agitated, tearful, crying stating her was a dirty scoundrel. She appeared more confused. At times believed she is 67 years old. Mini noted, the patient was seeing bugs on the ceiling and she could hear the devil wrapping her in chicken wire. She had done better the previous night. Review of Systems: No CV, , pulmonary, eye system symptoms on review. Ambulation impaired with walker. She has vague somatic symptoms. Mental Status Exam: Oriented to herself and situation. Speech is coherent, rapid at times. She is quite tearful. Abstraction is fair. Computation is impaired. Language function is intact. Attention span is short. She remains psychotic. No suicidal or homicidal ideation. Laboratory Data: Reviewed. Impression: Major depressive disorder with psychotic features. Psychotic disorder. History of Parkinson disease. Plan: I have carefully reviewed the patients current psychotropics. She seems to have failed treatment on Abilify and appeared more confused as we increased the dosage. We will change the Abilify 2.5 mg a day to Geodon 20 mg a day for 3 days, then 40 mg a day. Baseline EKG shows corrected QT interval which is unremarkable. Assessment: Vital Signs/I&O: Vital Signs Date Time Temp Pulse Resp B/P (MAP) Pulse Ox O2 Delivery O2 Flow Rate FiO2 02/01/20 06:23 97.9 73 18 146/90 (108) 98 01/31/20 22:12 Room Air 01/31/20 07:05 2.0 I & O 01/31/20 01/31/20 02/01/20 15:00 23:00 07:00 Intake Total 600 ml 360 ml Balance 600 ml 360 ml Labs: Laboratory Tests Test 01/31/20 08:38 White Blood Count 5.5 x10^3/uL (4.0-11.0) Red Blood Count 4.30 x10^6/uL (3.50-5.40) Hemoglobin 13.0 g/dL (12.0-15.5) Hematocrit 39.2 % (36.0-47.0) Mean Corpuscular Volume 91 fL (79-100) Mean Corpuscular Hemoglobin 30 pg (25-35) Mean Corpuscular Hemoglobin Concent 33 g/dL (31-37) Red Cell Distribution Width 14.9 % (11.5-14.5) H Platelet Count 282 x10^3/uL (140-400) Neutrophils (%) (Auto) 52 % (31-73) Lymphocytes (%) (Auto) 33 % (24-48) Monocytes (%) (Auto) 8 % (0-9) Eosinophils (%) (Auto) 6 % (0-3) H Basophils (%) (Auto) 0 % (0-3) Neutrophils # (Auto) 2.9 x10^3uL (1.8-7.7) Lymphocytes # (Auto) 1.8 x10^3/uL (1.0-4.8) Monocytes # (Auto) 0.4 x10^3/uL (0.0-1.1) Eosinophils # (Auto) 0.3 x10^3/uL (0.0-0.7) Basophils # (Auto) 0.0 x10^3/uL (0.0-0.2) Sodium Level 142 mmol/L (136-145) Potassium Level 4.4 mmol/L (3.5-5.1) Chloride Level 106 mmol/L (98-107) Carbon Dioxide Level 35 mmol/L (21-32) H Anion Gap 1 (6-14) L Blood Urea Nitrogen 11 mg/dL (7-20) Creatinine 0.9 mg/dL (0.6-1.0) Estimated GFR (Cockcroft-Gault) 59.7 BUN/Creatinine Ratio 12 (6-20) Glucose Level 96 mg/dL (70-99) Calcium Level 9.6 mg/dL (8.5-10.1) Magnesium Level 1.9 mg/dL (1.8-2.4) Total Bilirubin 0.4 mg/dL (0.2-1.0) Aspartate Amino Transferase (AST) 15 U/L (15-37) Alanine Aminotransferase (ALT) 11 U/L (14-59) L Alkaline Phosphatase 129 U/L (46-116) H Total Protein 6.7 g/dL (6.4-8.2) Albumin 3.3 g/dL (3.4-5.0) L Albumin/Globulin Ratio 1.0 (1.0-1.7) Vitamin B12 Level 534 pg/mL (247-911) Current Medications: Meds: Current Medications Medications (Trade) Dose Ordered Sig/Amilcar Route PRN Reason Start Time Stop Time Status Last Admin Dose Admin Duloxetine HCl (Cymbalta) 60 mg DAILY PO 01/31/20 09:00 01/31/20 08:15 I have reviewed the current psychotropics carefully including drug interactions. Risk benefit ratio favors no change other than as noted in my dictated progress note. Diagnosis: Problems: (1) Psychotic disorder (2) History of Parkinson's disease (3) Major depressive disorder with psychotic features SILVIO CERON MD Feb 01, 2020 06:53
--- NOTE | 2020-02-01 07:14 | PDOC ---
Exam Note: Wade Note: This note is a late entry for 01/31/2020 covers elements not covered in my initial note. Subjective: The patient was evaluated face to face in the morning of 01/31/2020 for treatment team meeting with Jeffry (social service staff), Cesilia, activity therapy, and Mini CEDENO and was also seen individually in the evening. The patient slept 8 hours previous night. At this she seems to ignore staff members or trying to interact with her. She states she cannot hear them, still believes she is 60 years old, crying, tearful, somewhat less so as I met with h er in the evening. She is somewhat delusional, talking about another patient having sex with one of the other female residents on the unit. Appetite is 50%. EKG is still to be completed for the Geodon. Review of Systems: No CV, , pulmonary, eye system symptoms on review. Ambulation impaired with walker. Mental Status Exam: Oriented to herself and situation. She was tearful, anxious as I met but perhaps less so than before. She is still paranoid suspicious. Speech is coherent. Abstraction is fair. Computation is impaired. Language function is intact. Mood and affect is somewhat withdrawn. No suicidal or homicidal ideation. Laboratory Data: Reviewed. Impression: Major depressive disorder with psychotic features. Psychotic disorder. History of Parkinson disease. Plan: We will go ahead and taper and stop the Valium, reduce it from 2.5 mg b.i.d. down to 2.5 mg a day to days and then stop it. Check EKG and start Geodon 20 mg a day increasing in 3 days to 40 mg a day. Continue Cymbalta, Sine met, ReQuip. Rest of the psychotropics unchanged for now. Assessment: Vital Signs/I&O: Vital Signs Date Time Temp Pulse Resp B/P (MAP) Pulse Ox O2 Delivery O2 Flow Rate FiO2 02/01/20 06:23 97.9 73 18 146/90 (108) 98 01/31/20 22:12 Room Air 01/31/20 07:05 2.0 I & O 01/31/20 01/31/20 02/01/20 15:00 23:00 07:00 Intake Total 600 ml 360 ml Balance 600 ml 360 ml Labs: Laboratory Tests Test 01/31/20 08:38 White Blood Count 5.5 x10^3/uL (4.0-11.0) Red Blood Count 4.30 x10^6/uL (3.50-5.40) Hemoglobin 13.0 g/dL (12.0-15.5) Hematocrit 39.2 % (36.0-47.0) Mean Corpuscular Volume 91 fL (79-100) Mean Corpuscular Hemoglobin 30 pg (25-35) Mean Corpuscular Hemoglobin Concent 33 g/dL (31-37) Red Cell Distribution Width 14.9 % (11.5-14.5) H Platelet Count 282 x10^3/uL (140-400) Neutrophils (%) (Auto) 52 % (31-73) Lymphocytes (%) (Auto) 33 % (24-48) Monocytes (%) (Auto) 8 % (0-9) Eosinophils (%) (Auto) 6 % (0-3) H Basophils (%) (Auto) 0 % (0-3) Neutrophils # (Auto) 2.9 x10^3uL (1.8-7.7) Lymphocytes # (Auto) 1.8 x10^3/uL (1.0-4.8) Monocytes # (Auto) 0.4 x10^3/uL (0.0-1.1) Eosinophils # (Auto) 0.3 x10^3/uL (0.0-0.7) Basophils # (Auto) 0.0 x10^3/uL (0.0-0.2) Sodium Level 142 mmol/L (136-145) Potassium Level 4.4 mmol/L (3.5-5.1) Chloride Level 106 mmol/L (98-107) Carbon Dioxide Level 35 mmol/L (21-32) H Anion Gap 1 (6-14) L Blood Urea Nitrogen 11 mg/dL (7-20) Creatinine 0.9 mg/dL (0.6-1.0) Estimated GFR (Cockcroft-Gault) 59.7 BUN/Creatinine Ratio 12 (6-20) Glucose Level 96 mg/dL (70-99) Calcium Level 9.6 mg/dL (8.5-10.1) Magnesium Level 1.9 mg/dL (1.8-2.4) Total Bilirubin 0.4 mg/dL (0.2-1.0) Aspartate Amino Transferase (AST) 15 U/L (15-37) Alanine Aminotransferase (ALT) 11 U/L (14-59) L Alkaline Phosphatase 129 U/L (46-116) H Total Protein 6.7 g/dL (6.4-8.2) Albumin 3.3 g/dL (3.4-5.0) L Albumin/Globulin Ratio 1.0 (1.0-1.7) Vitamin B12 Level 534 pg/mL (247-911) Current Medications: Meds: Current Medications Medications (Trade) Dose Ordered Sig/Amilcar Route PRN Reason Start Time Stop Time Status Last Admin Dose Admin Duloxetine HCl (Cymbalta) 60 mg DAILY PO 01/31/20 09:00 01/31/20 08:15 I have reviewed the current psychotropics carefully including drug interactions. Risk benefit ratio favors no change other than as noted in my dictated progress note. Diagnosis: Problems: (1) Psychotic disorder (2) History of Parkinson's disease (3) Major depressive disorder with psychotic features SILVIO CERON MD Feb 01, 2020 07:14
[2020-02-01] MEDS: DOCUSATE SODIUM 100 MG CAPSULE PO SCH (08:18)
[2020-02-01] MEDS: PANTOPRAZOLE 40 MG TABLET. PO SCH (08:18)
[2020-02-01] MEDS: ACETAMINOPHEN 500 MG TABLET PO SCH ×4 (08:19→20:24)
[2020-02-01] MEDS: DULoxetine HCL 60 MG CAPSULE.DR PO SCH (08:19)
[2020-02-01] MEDS: rOPINIRole 0.5 MG TABLET. PO SCH ×2 (08:19→20:24)
[2020-02-01] MEDS: CARBIDOPA/LEVODOPA 25/100MG TABLET PO SCH ×3 (08:19→20:24)
[2020-02-01] MEDS: METOPROLOL TART IMMED RELEASE 25 MG TABLET PO SCH ×2 (08:19→20:24)
[2020-02-01] MEDS: APIXABAN 2.5 MG TABLET PO SCH ×2 (08:19→20:24)
[2020-02-01] MEDS: LACTOBACILLUS RHAMNOSUS GG 1 CAPSULE. PO SCH ×2 (08:19→20:24)
[2020-02-01] MEDS: NEOMYCIN/BACI/POLY/HC OPHTH OINTMENT 3.5GM TUBE. OS SCH ×2 (08:20→20:34)
[2020-02-01] MEDS: diazePAM 5 MG TABLET. PO SCH ×2 (08:20→20:27)
[2020-02-01] MEDS: NYSTATIN TOPICAL POWDER 15GM BOTTLE. TP SCH ×2 (08:23→20:26)
--- NOTE | 2020-02-01 10:00 | NUR ---
Patient "sleeping in chair" not responding to nurse, RN sternal rubbed patient. Pt opened eyes, began crying asking when she would be able to see Prakash. RN explained that she wasn't sure, but if she found out RN would let her know. Pt began making a weird moaning noise, then playing possom. RN sternal rubbed patient again. RN left the room to get a spoon, when RN returned patient was awake and said "please don't rub me like that." RN informed patient that she needed to take her meds and talk with RN, and when closes her eyes and doesn't respond, RN gets concerned that something is wrong with patient. Pt did take medications. ARASELI.
--- NOTE | 2020-02-01 13:40 | NUR ---
Resumed pt care.
--- NOTE | 2020-02-01 16:02 | NUR ---
SW contacted pt to give him an update on how pt is doing and to also discuss the fact that the unit as of now is on hold as a pt tested as positive; so until we get more direction from the health department, the Behavioral Unit will do no admissions in and no discharges out. We are hopefully to hear back today if not Tuesday. EMIL will follow up with the family once next steps has been determined.
[2020-02-01 16:51] VITALS: BP 133/72
[2020-02-01] MEDS: MONTELUKAST 10 MG TABLET. PO SCH (20:23)
[2020-02-01] MEDS: ZIPRASIDONE 20 MG CAPSULE. PO SCH (20:24)
--- NOTE | 2020-02-01 21:54 | PDOC ---
Exam Note: Wade Note: Please also refer to the separate dictated note~for this date of service dictated separately.~Patient seen individually. Discussed the patient with Nursing staff reviewed the chart.~Reviewed interim history and current functioning. Reviewed vital signs,~Labs/ Radiology~and current medications noted below. Continue current treatment with the changes noted in the dictated addendum note Assessment: Vital Signs/I&O: Vital Signs Date Time Temp Pulse Resp B/P (MAP) Pulse Ox O2 Delivery O2 Flow Rate FiO2 02/01/20 20:24 91 133/72 02/01/20 16:51 97.9 18 97 02/01/20 08:20 2.0 01/31/20 22:12 Room Air I & O 01/31/20 01/31/20 02/01/20 15:00 23:00 07:00 Intake Total 600 ml 360 ml Balance 600 ml 360 ml Current Medications: Meds: Current Medications Medications (Trade) Dose Ordered Sig/Amilcar Route PRN Reason Start Time Stop Time Status Last Admin Dose Admin Nystatin (Nystop) 1 shmuel BID TP 02/01/20 09:00 02/01/20 20:26 I have reviewed the current psychotropics carefully including drug interactions. Risk benefit ratio favors no change other than as noted in my dictated progress note. Diagnosis: Problems: (1) Psychotic disorder (2) History of Parkinson's disease (3) Major depressive disorder with psychotic features SILVIO CERON MD Feb 01, 2020 21:54
--- NOTE | 2020-02-02 01:49 | NUR ---
Nursing Note The patient was located in her room laying in bed when approached for her assessment and medication pass. The patient was tearful initially during interactions with this nurse but calmed shortly after beginning her assessment. The patient took her medication whole. The patient is currently sleeping in her room.
[2020-02-02 05:49] VITALS: BP 119/69
[2020-02-02] MEDS: NEOMYCIN/BACI/POLY/HC OPHTH OINTMENT 3.5GM TUBE. OS SCH ×2 (07:36→20:05)
[2020-02-02] MEDS: NYSTATIN TOPICAL POWDER 15GM BOTTLE. TP SCH ×2 (08:52→20:07)
[2020-02-02] MEDS: PANTOPRAZOLE 40 MG TABLET. PO SCH (08:53)
[2020-02-02] MEDS: DOCUSATE SODIUM 100 MG CAPSULE PO SCH (08:53)
[2020-02-02] MEDS: CARBIDOPA/LEVODOPA 25/100MG TABLET PO SCH ×3 (08:53→20:03)
[2020-02-02] MEDS: ACETAMINOPHEN 500 MG TABLET PO SCH ×4 (08:53→20:03)
[2020-02-02] MEDS: rOPINIRole 0.5 MG TABLET. PO SCH ×2 (08:53→20:03)
[2020-02-02] MEDS: DULoxetine HCL 60 MG CAPSULE.DR PO SCH (08:53)
[2020-02-02] MEDS: METOPROLOL TART IMMED RELEASE 25 MG TABLET PO SCH ×2 (08:53→20:04)
[2020-02-02] MEDS: APIXABAN 2.5 MG TABLET PO SCH ×2 (08:53→20:03)
[2020-02-02] MEDS: LACTOBACILLUS RHAMNOSUS GG 1 CAPSULE. PO SCH ×2 (08:54→20:03)
--- NOTE | 2020-02-02 09:43 | NUR ---
Patient tearful at breakfast. Patient requested a copy of her husbands number. Patient cooperative with medication and assessment.
[2020-02-02 15:46] VITALS: BP 155/91
[2020-02-02] MEDS: MONTELUKAST 10 MG TABLET. PO SCH (20:03)
[2020-02-02] MEDS: ZIPRASIDONE 40 MG CAPSULE. PO SCH (20:07)
[2020-02-02] MEDS: diazePAM 5 MG TABLET. PO SCH (20:07)
--- NOTE | 2020-02-02 21:53 | PDOC ---
Exam Note: Wade Note: Please also refer to the separate dictated note~for this date of service dictated separately.~Patient seen individually. Discussed the patient with Nursing staff reviewed the chart.~Reviewed interim history and current functioning. Reviewed vital signs,~Labs/ Radiology~and current medications noted below. Continue current treatment with the changes noted in the dictated addendum note Assessment: Vital Signs/I&O: Vital Signs Date Time Temp Pulse Resp B/P (MAP) Pulse Ox O2 Delivery O2 Flow Rate FiO2 02/02/20 20:04 73 150/85 02/02/20 15:46 97.2 20 98 Nasal Cannula 2.0 I & O 02/01/20 02/01/20 02/02/20 15:00 23:00 07:00 Intake Total 480 ml 360 ml Balance 480 ml 360 ml Current Medications: Meds: Current Medications Medications (Trade) Dose Ordered Sig/Amilcar Route PRN Reason Start Time Stop Time Status Last Admin Dose Admin Ziprasidone (Geodon) 40 mg HS PO 02/02/20 21:00 02/02/20 20:07 Diazepam (Valium) 2.5 mg QHS PO 02/02/20 21:00 02/04/20 22:00 02/02/20 20:07 I have reviewed the current psychotropics carefully including drug interactions. Risk benefit ratio favors no change other than as noted in my dictated progress note. Diagnosis: Problems: (1) Psychotic disorder (2) History of Parkinson's disease (3) Major depressive disorder with psychotic features SILVIO CERON MD Feb 02, 2020 21:53
--- NOTE | 2020-02-02 23:20 | NUR ---
Nursing Note The patient was tearful and very preoccupied with the idea that her was with another woman. The patient was redirectable but only for short amounts of time. The patient was compliant with her medications and took them whole. The patient was cooperative with her HS cares and her assessment. The patient is currently sleeping in her room.
[2020-02-03 05:43] VITALS: BP 138/76
[2020-02-03] MEDS: NEOMYCIN/BACI/POLY/HC OPHTH OINTMENT 3.5GM TUBE. OS SCH ×2 (07:13→19:26)
[2020-02-03] MEDS: DOCUSATE SODIUM 100 MG CAPSULE PO SCH (08:11)
[2020-02-03] MEDS: CARBIDOPA/LEVODOPA 25/100MG TABLET PO SCH ×3 (08:11→19:25)
[2020-02-03] MEDS: DULoxetine HCL 60 MG CAPSULE.DR PO SCH (08:11)
[2020-02-03] MEDS: rOPINIRole 0.5 MG TABLET. PO SCH ×2 (08:11→19:25)
[2020-02-03] MEDS: APIXABAN 2.5 MG TABLET PO SCH ×2 (08:11→19:26)
[2020-02-03] MEDS: LACTOBACILLUS RHAMNOSUS GG 1 CAPSULE. PO SCH ×2 (08:11→19:25)
[2020-02-03] MEDS: METOPROLOL TART IMMED RELEASE 25 MG TABLET PO SCH ×2 (08:11→19:25)
[2020-02-03] MEDS: ACETAMINOPHEN 500 MG TABLET PO SCH ×4 (08:11→19:25)
[2020-02-03] MEDS: PANTOPRAZOLE 40 MG TABLET. PO SCH (08:11)
[2020-02-03] MEDS: NYSTATIN TOPICAL POWDER 15GM BOTTLE. TP SCH ×2 (08:12→20:16)
--- NOTE | 2020-02-03 09:20 | NUR ---
Patient tearful at breakfast. Patient cooperative with medication and assessment.
[2020-02-03 15:44] VITALS: BP 152/90
[2020-02-03] MEDS: MONTELUKAST 10 MG TABLET. PO SCH (19:25)
[2020-02-03] MEDS: ZIPRASIDONE 40 MG CAPSULE. PO SCH (19:25)
[2020-02-03] MEDS: diazePAM 5 MG TABLET. PO SCH (20:16)
--- NOTE | 2020-02-03 21:58 | PDOC ---
Exam Note: Wade Note: Please also refer to the separate dictated note~for this date of service dictated separately.~Patient seen individually. Discussed the patient with Nursing staff reviewed the chart.~Reviewed interim history and current functioning. Reviewed vital signs,~Labs/ Radiology~and current medications noted below. Continue current treatment with the changes noted in the dictated addendum note Assessment: Vital Signs/I&O: Vital Signs Date Time Temp Pulse Resp B/P (MAP) Pulse Ox O2 Delivery O2 Flow Rate FiO2 02/03/20 20:46 97.6 94 02/03/20 19:25 92 152/90 02/03/20 15:44 20 Room Air 02/03/20 05:43 2.0 I & O 02/02/20 02/02/20 02/03/20 15:00 23:00 07:00 Intake Total 600 ml 360 ml 400 ml Balance 600 ml 360 ml 400 ml Current Medications: I have reviewed the current psychotropics carefully including drug interactions. Risk benefit ratio favors no change other than as noted in my dictated progress note. Diagnosis: Problems: (1) Psychotic disorder (2) History of Parkinson's disease (3) Major depressive disorder with psychotic features SILVIO CERON MD Feb 03, 2020 21:58
--- NOTE | 2020-02-04 00:16 | NUR ---
Nursing Note The patient was located in her room for her assessment and medication pass. The patient was tearful again this shift. The patient was very labile and would often begin crying in the middle of an otherwise calm and collected conversation. The patient took her medication whole and was cooperative with cares and her assessment. The patient is currently sleeping in her room.
[2020-02-04 05:49] VITALS: BP 157/88
--- NOTE | 2020-02-04 06:53 | PDOC ---
Exam Note: Wade Note: This note is a late entry for 02/01/2020 covers elements not covered in my initial note. Subjective: The patient was evaluated on telehealth rounds in the evening of 02/01/2020 with Rosario nursing aid as one of the patients on the unit has tested positive for COVID-19 and unit is on a lockdown with no admission and discharges. That is the reason I am doing telehealth rounds to minimize any further spread of the infection. Nursing report with Tonya CEDENO. The patient slept 6-1/2 hours previous night. She has been tearful at night and in the morning, compliant with medications. She has been stating one of the staff members was mean to her. We will check an EKG since we started her on Geodon as an atypical antipsychotic given her paranoia, delusions about her and as an augmentation for antidepressants. Review of Systems: No CV, , pulmonary, eye system symptoms on review. Ambulation impaired with walker. Mental Status Exam: Oriented to herself and situation. She was tearful, anxious as I met with her on telehealth rounds. She remains quite paranoid, delusional about her having an affair but less fixated on this. Language function is intact. Mood and affect is somewhat withdrawn. No suicidal or homicidal ideation. Laboratory Data: Reviewed. Impression: Major depressive disorder with psychotic features. Psychotic disorder. History of Parkinson disease. Plan: Check EKG. Adjust Geodon. Cymbalta has been reduced to 60 mg a day and she remains on Sinemet and ReQuip for her Parkinsons per Dr. Martins and Valium has been tapered. Rest unchanged. Assessment: Vital Signs/I&O: Vital Signs Date Time Temp Pulse Resp B/P (MAP) Pulse Ox O2 Delivery O2 Flow Rate FiO2 02/04/20 05:49 97.6 73 18 157/88 (111) 97 2.0 02/03/20 15:44 Room Air I & O 02/03/20 02/03/20 02/04/20 15:00 23:00 07:00 Intake Total 480 ml 600 ml Balance 480 ml 600 ml Current Medications: I have reviewed the current psychotropics carefully including drug interactions. Risk benefit ratio favors no change other than as noted in my dictated progress note. Diagnosis: Problems: (1) Psychotic disorder (2) History of Parkinson's disease (3) Major depressive disorder with psychotic features SILVIO CERON MD Feb 04, 2020 06:53
--- NOTE | 2020-02-04 07:08 | PDOC ---
Exam Note: Wade Note: This note is a late entry for 02/02/2020 covers elements not covered in my initial note. Subjective: The patient was evaluated on telehealth rounds in the evening of 02/02/2020 with Radha CEDEON as one of the patients on the unit has tested positive for COVID-19 and unit is on a lockdown with no admission and dis charges. That is the reason I am doing telehealth rounds to minimize any further spread of the infection. Nursing report with Jose CEDENO. The patient slept 7-3/4 hours previous night. She was tearful in the morning. Later she got her husbands telephone numbers, seemed calmer after this, still talking about her cheating on her. QTc is 470 milliseconds. We will monitor this and repeat in 3 days. Review of Systems: Ambulation impaired. No CV, , pulmonary, eye system symptoms on review. Mental Status Exam: Oriented to herself and situation. She has been tearful, anxious as I met with her on telehealth rounds, less delusional, talking about her nevertheless as I met with her. Abstraction is fair. Computation is impaired. Language function is intact. Mood and affect is somewhat withdrawn. No suicidal or homicidal ideation. Laboratory Data: Reviewed. Impression: Major depressive disorder with psychotic features. Psychotic disorder. History of Parkinson disease. Plan: No change from initial note other than noted above. Assessment: Vital Signs/I&O: Vital Signs Date Time Temp Pulse Resp B/P (MAP) Pulse Ox O2 Delivery O2 Flow Rate FiO2 02/04/20 05:49 97.6 73 18 157/88 (111) 97 2.0 02/03/20 15:44 Room Air I & O 02/03/20 02/03/20 02/04/20 15:00 23:00 07:00 Intake Total 480 ml 600 ml Balance 480 ml 600 ml Current Medications: I have reviewed the current psychotropics carefully including drug interactions. Risk benefit ratio favors no change other than as noted in my dictated progress note. Diagnosis: Problems: (1) Psychotic disorder (2) History of Parkinson's disease (3) Major depressive disorder with psychotic features SILVIO CERON MD Feb 04, 2020 07:08
--- NOTE | 2020-02-04 07:22 | PDOC ---
Exam Note: Wade Note: This note is a late entry for 02/03/2020 covers elements not covered in my initial note. Subjective: The patient was evaluated on telehealth rounds in the evening of 02/03/2020 with Radha nursing aid as one of the patients on the unit has tested positive for COVID-19 and unit is on a lockdown with no admission and discharges. That is the reason I am doing telehealth rounds to minimize any further spread of the infection. Nursing report with Jose CEDENO. She complains of back pain, knee pain, tearful and anxious as I met with her after short time into the visit but initially she was quite pleasant, verbal. At times she states she is seeing bugs, less tearful. Review of Systems: Positive for the back pain. Ambulation impaired. No CV, , pulmonary, eye system symptoms on review. Mental Status Exam: Oriented to herself and situation. Initially she was not tearful, later during the visit, little more tearful, anxious less paranoid a bout her as I questioned her. Abstraction is fair. Computation is impaired. Language function is intact. Mood and affect is somewhat withdrawn. No suicidal or homicidal ideation. Laboratory Data: Reviewed. Impression: Major depressive disorder with psychotic features. Psychotic disorder. History of Parkinson disease. Plan: Continue current psychotropics. We may need to increase Geodon. Repeat EKG. Assessment: Vital Signs/I&O: Vital Signs Date Time Temp Pulse Resp B/P (MAP) Pulse Ox O2 Delivery O2 Flow Rate FiO2 02/04/20 05:49 97.6 73 18 157/88 (111) 97 2.0 02/03/20 15:44 Room Air I & O 02/03/20 02/03/20 02/04/20 15:00 23:00 07:00 Intake Total 480 ml 600 ml Balance 480 ml 600 ml Current Medications: I have reviewed the current psychotropics carefully including drug interactions. Risk benefit ratio favors no change other than as noted in my dictated progress note. Diagnosis: Problems: (1) Psychotic disorder (2) History of Parkinson's disease (3) Major depressive disorder with psychotic features SILVIO CERON MD Feb 04, 2020 07:21
[2020-02-04] MEDS: DOCUSATE SODIUM 100 MG CAPSULE PO SCH (08:14)
[2020-02-04] MEDS: PANTOPRAZOLE 40 MG TABLET. PO SCH (08:14)
[2020-02-04] MEDS: APIXABAN 2.5 MG TABLET PO SCH ×2 (08:14→20:01)
[2020-02-04] MEDS: LACTOBACILLUS RHAMNOSUS GG 1 CAPSULE. PO SCH ×2 (08:14→20:01)
[2020-02-04] MEDS: ACETAMINOPHEN 500 MG TABLET PO SCH ×4 (08:14→20:02)
[2020-02-04] MEDS: METOPROLOL TART IMMED RELEASE 25 MG TABLET PO SCH ×2 (08:14→20:02)
[2020-02-04] MEDS: rOPINIRole 0.5 MG TABLET. PO SCH ×2 (08:14→20:04)
[2020-02-04] MEDS: DULoxetine HCL 60 MG CAPSULE.DR PO SCH (08:15)
[2020-02-04] MEDS: CARBIDOPA/LEVODOPA 25/100MG TABLET PO SCH ×3 (08:15→20:01)
[2020-02-04] MEDS: NYSTATIN TOPICAL POWDER 15GM BOTTLE. TP SCH ×2 (08:17→20:05)
[2020-02-04] MEDS: NEOMYCIN/BACI/POLY/HC OPHTH OINTMENT 3.5GM TUBE. OS SCH ×2 (09:00→19:54)
--- NOTE | 2020-02-04 09:44 | NUR ---
PATIENT IS LOCATED IN ROOM AT TIME OF ASSESSMENT AND MEDICATION ADMINISTRATION. PATIENT IS PLEASANTLY CONFUSED, BUT ANXIOUS. PATIENT IS VERY WORRISOME. PATIENT IS COMPLIANT WITH MEDICATIONS WHOLE WITH WATER. PATIENT IS RESTING IN ROOM AT THIS TIME. WILL CONTINUE TO MONITOR.
--- NOTE | 2020-02-04 11:41 | NUR ---
EMIL received call from EMIL Egan at [facility], inquiring about when Neela would be discharging. Updated Julisa as to Covid exposure on [facility] and plan to swab all patients today and await for further guidance from the health department. Explained that the unit is currently on hold for all admissions and discharges.
[2020-02-04 16:29] VITALS: BP 144/78
[2020-02-04] MEDS: ZIPRASIDONE 40 MG CAPSULE. PO SCH (20:01)
[2020-02-04] MEDS: diazePAM 5 MG TABLET. PO SCH (20:03)
[2020-02-04] MEDS: MONTELUKAST 10 MG TABLET. PO SCH (20:04)
--- NOTE | 2020-02-04 22:07 | NUR ---
Nursing Note Pt up in bed eating ice cream, was calm and cooperative. Prior to assessment at shift change, pt was calling out crying and demanding. Med compliant and calm once in bed.
[2020-02-05 05:57] VITALS: BP 144/87
[2020-02-05 06:21] LABS: BASO % 0 % (0-3); EOS # 0.3 x10^3/uL (0.0-0.7); EOS % 4 % (0-3); HEMOGLOBIN 12.9 g/dL (12.0-15.5); LYMPH # 1.8 x10^3/uL (1.0-4.8); LYMPH % 26 % (24-48); MEAN CORPUSCULAR HEMOGLOBIN 30 pg (25-35); MEAN CORPUSCULAR HGB CONC 32 g/dL (31-37); MEAN CORPUSCULAR VOLUME 92 fL (79-100); MONO # 0.5 x10^3/uL (0.0-1.1); MONO % 7 % (0-9); NEUT # 4.5 x10^3uL (1.8-7.7); NEUT % 63 % (31-73); PLATELET COUNT 285 x10^3/uL (140-400); RED BLOOD COUNT 4.35 x10^6/uL (3.50-5.40); RED CELL DISTRIBUTION WIDTH 15.1 % (11.5-14.5); WHITE BLOOD COUNT 7.2 x10^3/uL (4.0-11.0)
[2020-02-05 06:32] LABS: ALBUMIN 3.3 g/dL (3.4-5.0); CALCIUM 9.6 mg/dL (8.5-10.1); CREATININE 0.9 mg/dL (0.6-1.0); GFR 59.7; POTASSIUM 4.5 mmol/L (3.5-5.1); TOTAL BILIRUBIN 0.3 mg/dL (0.2-1.0); TOTAL PROTEIN 6.6 g/dL (6.4-8.2)
--- NOTE | 2020-02-05 07:24 | PDOC ---
Exam Note: Wade Note: This note is a late entry for 02/04/2020 covers elements not covered in my initial note. Subjective: The patient was evaluated on telehealth rounds in the evening on 02/04/2020 due to COVID-19 pandemic on the unit with Siri nursing aid. Nursing report was with Karma CEDENO. She slept 6-1/2 hours previous night. She was tearful previous night, delusional that her was having an affair but during the day today per Olga, she has been less tearful, less paranoid about her . Review of Systems: No CV, , pulmonary, eye system symptoms on review. Mental Status Exam: As I met with her on telehealth rounds in the evening, she was again tearful, sad stated she had talked to her earlier today and he told her he was not having an affair and she sort of believed him. This was an improvement for her. Nevertheless, as she talked about, she was tearful, anxious. Abstraction is fair. Computation is impaired. Language function is intact. Mood and affect is somewhat withdrawn. No suicidal or homicidal ideation. Laboratory Data: Reviewed. Impression: Major depressive disorder with psychotic features. Psychotic disorder. History of Parkinson disease. Plan: No change from initial note. Dr. Leroy will be covering for me during my vacation from 02/05/2020 to 02/11/2020. Assessment: Vital Signs/I&O: Vital Signs Date Time Temp Pulse Resp B/P (MAP) Pulse Ox O2 Delivery O2 Flow Rate FiO2 02/05/20 05:57 97.5 70 16 144/87 (106) 97 2.0 02/03/20 15:44 Room Air I & O 02/04/20 02/04/20 02/05/20 15:00 23:00 07:00 Intake Total 480 ml 240 ml Balance 480 ml 240 ml Labs: Laboratory Tests Test 02/04/20 11:30 02/05/20 06:00 SARS-CoV-2 Antigen (Rapid) Negative (NEGATIVE) White Blood Count 7.2 x10^3/uL (4.0-11.0) Red Blood Count 4.35 x10^6/uL (3.50-5.40) Hemoglobin 12.9 g/dL (12.0-15.5) Hematocrit 40.0 % (36.0-47.0) Mean Corpuscular Volume 92 fL (79-100) Mean Corpuscular Hemoglobin 30 pg (25-35) Mean Corpuscular Hemoglobin Concent 32 g/dL (31-37) Red Cell Distribution Width 15.1 % (11.5-14.5) H Platelet Count 285 x10^3/uL (140-400) Neutrophils (%) (Auto) 63 % (31-73) Lymphocytes (%) (Auto) 26 % (24-48) Monocytes (%) (Auto) 7 % (0-9) Eosinophils (%) (Auto) 4 % (0-3) H Basophils (%) (Auto) 0 % (0-3) Neutrophils # (Auto) 4.5 x10^3uL (1.8-7.7) Lymphocytes # (Auto) 1.8 x10^3/uL (1.0-4.8) Monocytes # (Auto) 0.5 x10^3/uL (0.0-1.1) Eosinophils # (Auto) 0.3 x10^3/uL (0.0-0.7) Basophils # (Auto) 0.0 x10^3/uL (0.0-0.2) Sodium Level 143 mmol/L (136-145) Potassium Level 4.5 mmol/L (3.5-5.1) Chloride Level 107 mmol/L (98-107) Carbon Dioxide Level 36 mmol/L (21-32) H Anion Gap 0 (6-14) L Blood Urea Nitrogen 7 mg/dL (7-20) Creatinine 0.9 mg/dL (0.6-1.0) Estimated GFR (Cockcroft-Gault) 59.7 BUN/Creatinine Ratio 8 (6-20) Glucose Level 93 mg/dL (70-99) Calcium Level 9.6 mg/dL (8.5-10.1) Total Bilirubin 0.3 mg/dL (0.2-1.0) Aspartate Amino Transferase (AST) 13 U/L (15-37) L Alanine Aminotransferase (ALT) 10 U/L (14-59) L Alkaline Phosphatase 131 U/L (46-116) H Total Protein 6.6 g/dL (6.4-8.2) Albumin 3.3 g/dL (3.4-5.0) L Albumin/Globulin Ratio 1.0 (1.0-1.7) Current Medications: I have reviewed the current psychotropics carefully including drug interactions. Risk benefit ratio favors no change other than as noted in my dictated progress note. Diagnosis: Problems: (1) Psychotic disorder (2) History of Parkinson's disease (3) Major depressive disorder with psychotic features SILVIO CERON MD Feb 05, 2020 07:24
[2020-02-05] MEDS: APIXABAN 2.5 MG TABLET PO SCH ×2 (08:12→19:59)
[2020-02-05] MEDS: PANTOPRAZOLE 40 MG TABLET. PO SCH (08:12)
[2020-02-05] MEDS: ACETAMINOPHEN 500 MG TABLET PO SCH ×4 (08:12→19:58)
[2020-02-05] MEDS: DOCUSATE SODIUM 100 MG CAPSULE PO SCH (08:12)
[2020-02-05] MEDS: LACTOBACILLUS RHAMNOSUS GG 1 CAPSULE. PO SCH ×2 (08:12→19:59)
[2020-02-05] MEDS: CARBIDOPA/LEVODOPA 25/100MG TABLET PO SCH ×3 (08:12→19:59)
[2020-02-05] MEDS: rOPINIRole 0.5 MG TABLET. PO SCH ×2 (08:12→19:58)
[2020-02-05] MEDS: DULoxetine HCL 60 MG CAPSULE.DR PO SCH (08:12)
[2020-02-05] MEDS: METOPROLOL TART IMMED RELEASE 25 MG TABLET PO SCH ×2 (08:13→19:58)
[2020-02-05] MEDS: NEOMYCIN/BACI/POLY/HC OPHTH OINTMENT 3.5GM TUBE. OS SCH ×2 (08:13→19:57)
[2020-02-05] MEDS: NYSTATIN TOPICAL POWDER 15GM BOTTLE. TP SCH ×2 (08:33→20:00)
--- NOTE | 2020-02-05 11:44 | NUR ---
Nursing note: Pt sitting up in bed finishing eating her breakfast at time of med pass and assessment. Pt was compliant with meds whole and cooperative with her assessment. When pt was first asked how she was doing, she stated that she felt good. After interaction, pt mentioned having a small headache and said "it's because my is leaving me". Pt then went on to say "I talked to my on the phone yesterday and he said he wasn't leaving me, so I don't know." Pt was given her scheduled tylenol with AM meds and later said it helped her headache. Pt has been in her room all morning. Will continue to monitor.
[2020-02-05 16:11] VITALS: BP 126/73
--- NOTE | 2020-02-05 17:23 | EKG ---
[address] [address] Test Date: 2020-02-05 Test Time: 16:22:42 Pat Name: STEFFANIE DONALDSON Department: Room: [facility] Gender: F Estimator Binding: : 1935 Requested By: SILVIO CERON Order Number: [id number] Reading MD: Measurements Intervals [place] Rate: 72 P: [place]: QRS: -79 QRSD: 134 T: 2 QT: 402 QTc: 442 Interpretive Statements IRREGULAR RHYTHM, NO P-WAVE FOUND ABNORMAL LEFT AXIS DEVIATION S1,S2,S3 PATTERN LEFT ANTERIOR FASCICULAR BLOCK RIGHT BUNDLE BRANCH BLOCK BIFASCICULAR BLOCK QRS(T) CONTOUR ABNORMALITY CONSIDER ANTEROLATERAL MYOCARDIAL DAMAGE CONSIDER INFERIOR MYOCARDIAL DAMAGE ABNORMAL ECG RI6.01 No previous ECG available for comparison
[2020-02-05] MEDS: ZIPRASIDONE 40 MG CAPSULE. PO SCH (19:58)
[2020-02-05] MEDS: MONTELUKAST 10 MG TABLET. PO SCH (19:59)
--- NOTE | 2020-02-05 21:22 | PN ---
DATE: 02/05/2020 SUBJECTIVE: The patient was evaluated on telehealth rounds, met with the staff, chart reviewed. The patient is complaining of chronic back pain, feeling depressed and also wanting to go home and feeling lonely. Staff reports no major problems. OBSERVATION: VITAL SIGNS: Temperature 97.5, blood pressure 144/87, pulse 70, respirations 16, O2 sat 97%. GENERAL: Slept about 6 hours last night. The patient's appetite improved. MEDICATIONS: Reviewed. Currently on Geodon 40 mg at night, Cymbalta 60 mg daily, also olanzapine 2.5 mg q. 2 hours p.r.n. She is also on carbidopa/levodopa for Parkinson's. LABORATORY DATA: The patient's lab reviewed. No significant change from prior levels. The patient did not have any falls. The patient is not having any side effects to the medications. ASSESSMENT: AXIS I: Major depression, single episode with psychotic features. AXIS II: None. AXIS III: Hypertension, hyperlipidemia, congestive heart failure, asthma, obesity, atrial fibrillation, Parkinson's disease and low back pain. PLAN: Continue with the treatment. We will adjust the medication accordingly. LENGTH OF STAY: 3-5 days. OCTAVIANO RAMSO MD DR: TIM/neil JOB#: [id number] / [id number]
--- NOTE | 2020-02-05 23:26 | NUR ---
Nursing Note Pt in bed asleep, awakens to voice take meds compliant and cooperative. When asked she states that her day was "Full of shit". When I asked her what happened she state it was just an awful day. Resting well after taking po meds.
[2020-02-06 06:23] VITALS: BP 126/75
[2020-02-06] MEDS: METOPROLOL TART IMMED RELEASE 25 MG TABLET PO SCH ×2 (07:46→19:35)
[2020-02-06] MEDS: NEOMYCIN/BACI/POLY/HC OPHTH OINTMENT 3.5GM TUBE. OS SCH ×2 (07:46→19:34)
[2020-02-06] MEDS: ACETAMINOPHEN 500 MG TABLET PO SCH ×4 (07:47→19:36)
[2020-02-06] MEDS: DOCUSATE SODIUM 100 MG CAPSULE PO SCH (07:47)
[2020-02-06] MEDS: APIXABAN 2.5 MG TABLET PO SCH ×2 (07:47→19:35)
[2020-02-06] MEDS: LACTOBACILLUS RHAMNOSUS GG 1 CAPSULE. PO SCH ×2 (07:47→19:35)
[2020-02-06] MEDS: DULoxetine HCL 60 MG CAPSULE.DR PO SCH (07:47)
[2020-02-06] MEDS: CARBIDOPA/LEVODOPA 25/100MG TABLET PO SCH ×3 (07:47→19:35)
[2020-02-06] MEDS: rOPINIRole 0.5 MG TABLET. PO SCH ×2 (07:47→19:34)
[2020-02-06] MEDS: PANTOPRAZOLE 40 MG TABLET. PO SCH (07:47)
[2020-02-06] MEDS: NYSTATIN TOPICAL POWDER 15GM BOTTLE. TP SCH ×2 (07:48→19:36)
--- NOTE | 2020-02-06 10:24 | NUR ---
Nursing note: Pt in her room for med administration and assessment. She was compliant with meds whole and cooperative with her assessment. When asked how she was, pt responded "The same way I feel everyday, shitty." Pt would not go into detail about how she was feeling, and she denied having any pain. She is currently sitting up in her room. Will continue to monitor.
--- NOTE | 2020-02-06 12:29 | NUR ---
EMIL sent updates to [facility] re: pt. Discharge for pt would look roughly around Feb 18. SW to continue to keep them up to date.
[2020-02-06 15:58] VITALS: BP 148/87
[2020-02-06] MEDS: MONTELUKAST 10 MG TABLET. PO SCH (19:35)
[2020-02-06] MEDS: ZIPRASIDONE 40 MG CAPSULE. PO SCH (19:35)
--- NOTE | 2020-02-06 21:22 | NUR ---
Nursing Note Pt in bed whining, stating her is cheating on her with our staff. I assured her that no one is cheating with her . She is compliant and cooperative but sad and tearful.
--- NOTE | 2020-02-06 21:23 | PN ---
DATE: 02/06/2020 SUBJECTIVE: The patient was evaluated on telehealth rounds, discussed with the staff, chart reviewed. The patient continues to be tearful, depressed, feeling angry and got upset with one of the staff today. The patient also has a delusional thinking that staff having an affair with her spouse and she is wanting to go home to be with the spouse. OBSERVATION: VITAL SIGNS: Temperature 97.7, blood pressure 126/75, pulse 61, respirations 18, O2 sat 100%. GENERAL: Slept about 7 hours last night. The patient's appetite is fair. The patient is not having any physical complaints. LABORATORY DATA: The patient's lab reviewed. MEDICATIONS: The patient's current medications include Geodon 40 mg at night, Cymbalta 60 mg daily and olanzapine 2.5 mg q. 2 hours p.r.n. The patient is also on carbidopa/levodopa for Parkinson's. The patient denies of any side effects to medications, no falls. ASSESSMENT: Major depressive disorder, single episode with psychotic features. PLAN: Continue with the current treatment plan. LENGTH OF STAY: 3-5 days. OCTAVIANO RAMOS MD DR: TIM/neil JOB#: [id number] / [id number]
[2020-02-07 06:20] VITALS: BP 177/72
[2020-02-07] MEDS: APIXABAN 2.5 MG TABLET PO SCH ×2 (08:01→20:36)
[2020-02-07] MEDS: rOPINIRole 0.5 MG TABLET. PO SCH ×2 (08:01→20:37)
[2020-02-07] MEDS: CARBIDOPA/LEVODOPA 25/100MG TABLET PO SCH ×3 (08:01→20:36)
[2020-02-07] MEDS: METOPROLOL TART IMMED RELEASE 25 MG TABLET PO SCH ×2 (08:01→20:37)
[2020-02-07] MEDS: NEOMYCIN/BACI/POLY/HC OPHTH OINTMENT 3.5GM TUBE. OS SCH ×2 (08:01→20:37)
[2020-02-07] MEDS: DOCUSATE SODIUM 100 MG CAPSULE PO SCH (08:01)
[2020-02-07] MEDS: DULoxetine HCL 60 MG CAPSULE.DR PO SCH (08:02)
[2020-02-07] MEDS: LACTOBACILLUS RHAMNOSUS GG 1 CAPSULE. PO SCH ×2 (08:02→20:36)
[2020-02-07] MEDS: ACETAMINOPHEN 500 MG TABLET PO SCH ×4 (08:02→20:36)
[2020-02-07] MEDS: NYSTATIN TOPICAL POWDER 15GM BOTTLE. TP SCH ×2 (08:02→20:37)
[2020-02-07] MEDS: PANTOPRAZOLE 40 MG TABLET. PO SCH (08:02)
--- NOTE | 2020-02-07 11:16 | NUR ---
Nursing note: Pt very tearful, whining, and delusional. Pt initially refused to take her meds because "Prakash came to visit last night and they whisked him away. They wouldn't even let me see my ." Pt was informed that there are no visitors allowed at this time and that her was never on the unit. Pt required multiple attempts at redirection before she was able to relax. Pt has been yelling out occasionally this shift and continues to be very tearful. Will continue to monitor.
--- NOTE | 2020-02-07 15:20 | TX PLAN ---
Interdisciplinary Tx Plan Admission Information Jan 23, 2020 at 11:13 Legal Status (on Admission): Voluntary DPOA/Guardian Name: Prakash Fitch Contact Other Contact Name: [facility] Other Contact Verified Code Status: DNR Allergies: Coded Allergies: Erythromycin Base (Verified Allergy, Unknown, 11/12/13) Moexipril (Verified Allergy, Unknown, 11/12/13) alprazolam (Verified Allergy, Unknown, 11/12/13) azithromycin (Verified Allergy, Unknown, 11/12/13) cefuroxime (Verified Allergy, Unknown, 11/09/13) clindamycin (Verified Allergy, Unknown, 11/09/13) codeine (Verified Allergy, Unknown, 11/12/13) hydrochlorothiazide (Verified Allergy, Unknown, 11/12/13) hydrocodone (Verified Allergy, Unknown, 11/12/13) metronidazole (Verified Allergy, Unknown, 11/12/13) Diagnoses Primary Diagnosis: Psychotic D/O unspecified Reasons for Admission: Delusions, Agitated, Hallucinations, Suspicious/paranoid, Poor impulse control, Other Problem in Patient's Words: Thinks that a lot of this has to do with her having multiple UTI's. Additional Admission Comments: According to the intake, pt is delusional and thinks staff are having an affair with her . Pt is having visual and auditory hallucinations, expressing SI "I just want to " putting herself on the floor, mood lability, irritable, agitated and pacing. Problems Active Problems: delusional SI without definite plan mood lability Inactive Problems: Medication management Pt Strengths/Limitations Ability for [place]: Poor Cognitive Functioning/Ability: Poor Communication Skills/Ability: Fair Financial Resources: Fair Insight/Judgement: Poor Intellectual Ability: Fair Physical Health: Poor Social Skills: Fair Stability in Family: Good Stability in School/Work: Poor Verbal Skills: Fair Discharge Criteria Discharge Criteria: No need for close observ., Adequate arrangements @DC, Improved behavior, Improved mood/thought Preliminary Discharge Plan Preliminary DC Plan: Current Living Arrange. Special Precautions Fall Risk: Low Initial D/C Plan Pt will return to [facility] Identified Discharge Needs: Continued psychiatric services Currently Utilized Resources Currently Utilized Resources/P: Primary care physician Referrals Community Resources: Psychiatrist Identified Problems/Hx/Goals Objectives/Short-Term Goals Short Term Goals: Dec. Hallucination/Delus, Dec. Outbursts, Improved Social Skills, Medication Stabilization, Promote Coping Skill Short Term Goals in Patient's: "Can I get a phone to call my " Interventions/Frequency Staff Interventions/Frequency&: Psychiatrist to assess pt at least 3x per week. Social Work to asses pt at least 2x per week. Nursing to assess behavior, medications and complete 15 minute checks daily. Encourage group participation or 1:1 engagement based off Activity Dept assessment. 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 Education: Pt graduated high school (12th grade) Community Follow-up Primary Care physician Updates to LTC facility Treatment Plan Explained Patient/Warehouse Trainer had this treatment plan explained to him/her as indicated by the signature below and has been given the opportunity to ask questions and make suggestions: Date: Patient/Warehouse Trainer Signature: Status Update Update Pt is eating 75% of meals and sleeping on average 6.5 hours per night. Pt is not combative; however, can be difficult to redirect and at times needy. Pt is tearful and delusional, reporting that her was here and staff kept him away from her. Pt is mostly cooperative with medications. At this time with the unit being on quarantine, pt can look at discharge for Tuesday, February 17. SW will work on all parties to finalize all discharge plans. MATTEO SALGUERO Feb 07, 2020 15:19
[2020-02-07 15:44] VITALS: BP 144/80
--- NOTE | 2020-02-07 20:00 | PN ---
DATE: 02/07/2020 SUBJECTIVE: The patient was evaluated on telehealth rounds, also participated in the treatment review conference. The patient continues to have difficulty with her thinking, emotionally labile, tearful, increased confusion and also delusional loss of touch with reality. OBSERVATION: VITAL SIGNS: Stable. The patient slept for about 6-1/2 hours last night. The patient's appetite is fair. MEDICATIONS: Reviewed. Currently on Geodon 40 mg at night, Cymbalta 60 mg daily and olanzapine 2.5 mg q. 2 hours p.r.n. The patient has not had any side effects from the medications. The patient is also taking carbidopa/levodopa for Parkinson's disease. LABORATORY DATA: The patient's lab reviewed. ASSESSMENT: 1. Major depressive disorder, single episode with psychotic features. PLAN: Plan is to continue with the treatment. LENGTH OF STAY: 5 days. OCTAVIANO RAMOS MD DR: TIM/neil JOB#: [id number] / [id number]
[2020-02-07 20:19] VITALS: BP 134/77
[2020-02-07] MEDS: ZIPRASIDONE 40 MG CAPSULE. PO SCH (20:37)
[2020-02-07] MEDS: MONTELUKAST 10 MG TABLET. PO SCH (20:37)
[2020-02-07] MEDS: POLYETHYLENE GLYCOL 3350 17 GM PACKET. PO PRN (20:37)
--- NOTE | 2020-02-07 22:03 | NUR ---
Nursing Note: Location of Patient during Assessment: Pt located in her room at shift change. Behaviors Mood and Affect this shift: Pt irritable, disorganized, and delusional. She is looking for Prakash this evening, reporting that he is supposed to be coming to get her. Medication Compliant: Compliant with medications administered whole. PRN Miralax administered this evening as well as PRN Zydis for agitation/anxiety. Assessment Compliant: Cooperative and compliant with assessment. Response After Interventions: Pt continues to be delusional and disorganized requiring staff to re-direct her multiple times.
[2020-02-08 05:03] VITALS: BP 136/80
[2020-02-08] MEDS: PANTOPRAZOLE 40 MG TABLET. PO SCH (08:47)
[2020-02-08] MEDS: NEOMYCIN/BACI/POLY/HC OPHTH OINTMENT 3.5GM TUBE. OS SCH ×2 (08:47→19:41)
[2020-02-08] MEDS: DOCUSATE SODIUM 100 MG CAPSULE PO SCH (08:47)
[2020-02-08] MEDS: APIXABAN 2.5 MG TABLET PO SCH ×2 (08:47→19:39)
[2020-02-08] MEDS: ACETAMINOPHEN 500 MG TABLET PO SCH ×4 (08:48→19:40)
[2020-02-08] MEDS: rOPINIRole 0.5 MG TABLET. PO SCH ×2 (08:48→19:40)
[2020-02-08] MEDS: CARBIDOPA/LEVODOPA 25/100MG TABLET PO SCH ×3 (08:48→19:41)
[2020-02-08] MEDS: METOPROLOL TART IMMED RELEASE 25 MG TABLET PO SCH ×2 (08:48→19:40)
[2020-02-08] MEDS: DULoxetine HCL 60 MG CAPSULE.DR PO SCH (08:50)
[2020-02-08] MEDS: LACTOBACILLUS RHAMNOSUS GG 1 CAPSULE. PO SCH ×2 (08:50→19:40)
[2020-02-08] MEDS: NYSTATIN TOPICAL POWDER 15GM BOTTLE. TP SCH ×2 (08:50→19:42)
--- NOTE | 2020-02-08 09:30 | NUR ---
Covid and rapid done and sent to lab.
--- NOTE | 2020-02-08 10:56 | NUR ---
Pt is withdrawn, and states she is depressed but does not know why. She is compliant with her medication and assessment. No agitation, no aggression and No hallucinations. She is asking who was with Tiffany. Nurse was able to easily redirect pt. pt denies SI/HI.
--- NOTE | 2020-02-08 14:36 | NUR ---
Today pt has been tearful and asked nurse "were you with my last night." Nurse redirected and reoriented pt. Another nurse reported that pt stated to her she didn't care if she lived or . That nurse redirected pt and offered emotional support.
[2020-02-08 15:59] VITALS: BP 161/71
[2020-02-08] MEDS: ZIPRASIDONE 40 MG CAPSULE. PO SCH (19:40)
[2020-02-08] MEDS: MONTELUKAST 10 MG TABLET. PO SCH (19:40)
[2020-02-08 20:19] VITALS: BP_SYST 147
--- NOTE | 2020-02-08 21:40 | PN ---
DATE: 02/08/2020 SUBJECTIVE: The patient was evaluated today by telehealth rounds, met with the staff, reviewed the chart and discussed the patient's current treatment plan. She continues to be depressed, feeling hopeless, helpless, also confused. The patient apparently has completed her antibiotics for UTI. She is also slow to respond to questions. OBSERVATION: VITAL SIGNS: Temperature 97.4, blood pressure 136/80, pulse 68, respiration 20, O2 sat 98%. Slept about 6-1/2 hours last night. The patient's appetite improved. MEDICATIONS: The patient's current medications include Geodon 40 mg at night, Cymbalta 60 mg daily and olanzapine 2.5 mg q. 2 hours p.r.n. The patient is not having any side effects. LABORATORY DATA: The patient's lab reviewed. ASSESSMENT: Major depressive disorder, single episode with psychotic features. PLAN: Continue with the current treatment plan. The patient is scheduled to have an EKG in 3 days' time. LENGTH OF STAY: 5 days. OCTAVIANO RAMOS MD DR: TIM/neil JOB#: [id number] / [id number]
--- NOTE | 2020-02-08 22:54 | NUR ---
Nursing Note The patient was located in her room for her assessment and medication pass. The patient took her medication whole and was cooperative with her assessment. The patient was very concerned that her is having an affair. This nurse was able to calm the patient through redirection and changing the topic of conversation. The patient is currently sleeping in her room.
[2020-02-09 05:54] VITALS: BP 149/72
[2020-02-09] MEDS: rOPINIRole 0.5 MG TABLET. PO SCH ×2 (07:45→20:03)
[2020-02-09] MEDS: LACTOBACILLUS RHAMNOSUS GG 1 CAPSULE. PO SCH ×2 (07:45→20:03)
[2020-02-09] MEDS: DOCUSATE SODIUM 100 MG CAPSULE PO SCH (07:45)
[2020-02-09] MEDS: DULoxetine HCL 60 MG CAPSULE.DR PO SCH (07:45)
[2020-02-09] MEDS: CARBIDOPA/LEVODOPA 25/100MG TABLET PO SCH ×3 (07:45→20:03)
[2020-02-09] MEDS: APIXABAN 2.5 MG TABLET PO SCH ×2 (07:45→20:03)
[2020-02-09] MEDS: METOPROLOL TART IMMED RELEASE 25 MG TABLET PO SCH ×2 (07:45→20:03)
[2020-02-09] MEDS: PANTOPRAZOLE 40 MG TABLET. PO SCH (07:45)
[2020-02-09] MEDS: NEOMYCIN/BACI/POLY/HC OPHTH OINTMENT 3.5GM TUBE. OS SCH ×2 (07:46→20:03)
[2020-02-09] MEDS: ACETAMINOPHEN 500 MG TABLET PO SCH ×4 (07:46→20:03)
[2020-02-09] MEDS: NYSTATIN TOPICAL POWDER 15GM BOTTLE. TP SCH ×2 (07:46→20:03)
[2020-02-09 16:05] VITALS: BP 190/80
[2020-02-09 19:38] VITALS: BP 152/90
[2020-02-09] MEDS: ZIPRASIDONE 40 MG CAPSULE. PO SCH (20:02)
[2020-02-09] MEDS: MONTELUKAST 10 MG TABLET. PO SCH (20:03)
--- NOTE | 2020-02-09 22:14 | NUR ---
Pt tearful this evening. Pt acting helpless as if she is unable to put her oxygen tubing on correctly or take her medications by herself. Pt yelling at times throughout the evening. Pt delusional; upset with staff because she is not 52 years old and it is "our fault." Compliant with whole medications floated in pudding.
[2020-02-10 05:58] VITALS: BP 139/85
[2020-02-10] MEDS: PANTOPRAZOLE 40 MG TABLET. PO SCH (08:40)
[2020-02-10] MEDS: DOCUSATE SODIUM 100 MG CAPSULE PO SCH (08:40)
[2020-02-10] MEDS: DULoxetine HCL 60 MG CAPSULE.DR PO SCH (08:41)
[2020-02-10] MEDS: rOPINIRole 0.5 MG TABLET. PO SCH ×2 (08:41→20:51)
[2020-02-10] MEDS: LACTOBACILLUS RHAMNOSUS GG 1 CAPSULE. PO SCH ×2 (08:41→20:50)
[2020-02-10] MEDS: CARBIDOPA/LEVODOPA 25/100MG TABLET PO SCH ×3 (08:41→20:50)
[2020-02-10] MEDS: METOPROLOL TART IMMED RELEASE 25 MG TABLET PO SCH ×2 (08:41→20:51)
[2020-02-10] MEDS: ACETAMINOPHEN 500 MG TABLET PO SCH ×4 (08:41→20:50)
[2020-02-10] MEDS: APIXABAN 2.5 MG TABLET PO SCH ×2 (08:41→20:50)
[2020-02-10] MEDS: NEOMYCIN/BACI/POLY/HC OPHTH OINTMENT 3.5GM TUBE. OS SCH ×2 (09:00→20:50)
[2020-02-10] MEDS: NYSTATIN TOPICAL POWDER 15GM BOTTLE. TP SCH ×2 (09:00→20:50)
--- NOTE | 2020-02-10 09:12 | PN ---
DATE: 02/09/2020 SUBJECTIVE: The patient was seen today by telehealth rounds, also met with the staff, reviewed the patient's current medications and her progress. She continues to be preoccupied about her , crying, emotionally labile, wanting to see him. The patient is not able to change her line of thinking. The patient also highly emotional, appears depressed. OBSERVATION: VITAL SIGNS: Temperature 97.4, blood pressure 149/72, pulse 61, respirations 18, O2 sat 95%. GENERAL: Slept about 7 hours last night. The patient's appetite improved. Staff reports increased confusion, emotional lability, social withdrawal and not tuned to her environment. MEDICATIONS: Currently on Geodon 40 mg at night, Cymbalta 60 mg daily and olanzapine 2.5 mg q. 2 hours p.r.n. LABORATORY DATA: The patient's lab reviewed. ASSESSMENT: Major depressive disorder, single episode with psychotic features. PLAN: To continue with the current treatment plan. The patient is planned for discharge by 02/18. OCTAVIANO RAMOS MD DR: TIM/neil JOB#: [id number] / [id number]
--- NOTE | 2020-02-10 10:20 | NUR ---
Pt is cooperative, calm, and compliant. She needs encouragement to complete ADL's She is compliant with her medication and assessment.
--- NOTE | 2020-02-10 11:46 | PN ---
DATE: 02/10/2020 SUBJECTIVE: The patient was evaluated by telehealth rounds, met with the staff, chart reviewed, and covering for Dr. Wilson. The patient continues to be restless, did not sleep much. She is constantly preoccupied about her , emotionally labile, wanting to see him. She is also difficult to redirect. OBSERVATION: VITAL SIGNS: Temperature 98.1, blood pressure 139/79, pulse 68, respirations 17, O2 sat 95%. The patient did sleep about 7 hours last night. LABORATORY DATA: The patient's lab reviewed. MEDICATIONS: The patient's current medications include Geodon 40 mg at night, Cymbalta 60 mg daily and olanzapine 2.5 mg q. 2 hours p.r.n. The patient is not having any side effects. No falls, no major medical issues. ASSESSMENT: Major depressive disorder, single episode with psychotic features. PLAN: To continue with the current treatment plan. The patient is planned for discharge on 02/19/2020. OCTAVIANO RAMOS MD DR: TIM/neil JOB#: [id number] / [id number]
--- NOTE | 2020-02-10 12:34 | PN ---
DATE: 02/10/2020 SUBJECTIVE: The patient was evaluated by telehealth rounds, met with the staff, chart reviewed, and covering for Dr. Wilson. Staff reports that the patient is still delusional, hopeless, difficult to redirect and confused. The patient is compliant with the treatment, taking her medications regularly. The patient is also tearful at times and emotionally labile. OBSERVATION: VITAL SIGNS: Temperature 98.3, blood pressure 139/83, pulse 18. GENERAL: The patient did not have any falls, no side effects from medications. CURRENT MEDICATIONS: Geodon 40 mg at night, Cymbalta 60 mg daily and olanzapine 2.5 mg q.2 hours p.r.n. ASSESSMENT: Major depressive disorder, single episode with psychotic features. PLAN: To continue with the treatment. LENGTH OF STAY: The patient is planned for discharge on 02/19/2020. OCTAVIANO RAMOS MD DR: TIM/neil JOB#: [id number] / [id number]
--- NOTE | 2020-02-10 14:59 | NUR ---
Pt is in her room yelling out, wandering and almost tripped over her oxygen tubing. Pt is yelling "help" repeatedly, she is tearful. Staff is unable to redirect or calm pt. PRN cassidy lester given.
[2020-02-10 16:20] VITALS: BP 155/89
[2020-02-10] MEDS: MONTELUKAST 10 MG TABLET. PO SCH (20:50)
[2020-02-10] MEDS: ZIPRASIDONE 40 MG CAPSULE. PO SCH (20:50)
--- NOTE | 2020-02-10 22:31 | NUR ---
Pt disorganized and acting helpless this evening. Pt states she is anxious. Compliant with whole medications floated in pudding. Yelling out intermittently.
[2020-02-11 05:49] VITALS: BP 147/77
[2020-02-11 06:16] LABS: BASO % 0 % (0-3); EOS # 0.4 x10^3/uL (0.0-0.7); EOS % 5 % (0-3); HEMATOCRIT 35.7 % (36.0-47.0); HEMOGLOBIN 11.8 g/dL (12.0-15.5); LYMPH # 2.2 x10^3/uL (1.0-4.8); LYMPH % 29 % (24-48); MEAN CORPUSCULAR HEMOGLOBIN 30 pg (25-35); MEAN CORPUSCULAR HGB CONC 33 g/dL (31-37); MEAN CORPUSCULAR VOLUME 91 fL (79-100); MONO # 0.6 x10^3/uL (0.0-1.1); MONO % 8 % (0-9); NEUT # 4.3 x10^3uL (1.8-7.7); NEUT % 57 % (31-73); PLATELET COUNT 281 x10^3/uL (140-400); RED BLOOD COUNT 3.92 x10^6/uL (3.50-5.40); RED CELL DISTRIBUTION WIDTH 15.4 % (11.5-14.5); WHITE BLOOD COUNT 7.6 x10^3/uL (4.0-11.0)
[2020-02-11 06:23] LABS: ALBUMIN 2.9 g/dL (3.4-5.0); ALBUMIN/GLOBULIN RATIO 0.9 (1.0-1.7); CALCIUM 9.2 mg/dL (8.5-10.1); CREATININE 0.8 mg/dL (0.6-1.0); GFR 68.3; POTASSIUM 4.5 mmol/L (3.5-5.1); TOTAL BILIRUBIN 0.3 mg/dL (0.2-1.0)
[2020-02-11] MEDS: NYSTATIN TOPICAL POWDER 15GM BOTTLE. TP SCH ×2 (08:03→20:00)
[2020-02-11] MEDS: DULoxetine HCL 60 MG CAPSULE.DR PO SCH (08:03)
[2020-02-11] MEDS: PANTOPRAZOLE 40 MG TABLET. PO SCH (08:04)
[2020-02-11] MEDS: METOPROLOL TART IMMED RELEASE 25 MG TABLET PO SCH ×2 (08:04→20:00)
[2020-02-11] MEDS: NEOMYCIN/BACI/POLY/HC OPHTH OINTMENT 3.5GM TUBE. OS SCH ×2 (08:04→20:00)
[2020-02-11] MEDS: LACTOBACILLUS RHAMNOSUS GG 1 CAPSULE. PO SCH ×2 (08:04→19:59)
[2020-02-11] MEDS: ACETAMINOPHEN 500 MG TABLET PO SCH ×4 (08:04→19:59)
[2020-02-11] MEDS: CARBIDOPA/LEVODOPA 25/100MG TABLET PO SCH ×3 (08:04→19:59)
[2020-02-11] MEDS: DOCUSATE SODIUM 100 MG CAPSULE PO SCH (08:04)
[2020-02-11] MEDS: APIXABAN 2.5 MG TABLET PO SCH ×2 (08:04→19:59)
[2020-02-11] MEDS: rOPINIRole 0.5 MG TABLET. PO SCH ×2 (08:05→19:59)
--- NOTE | 2020-02-11 11:10 | NUR ---
Patient sitting up in bed at shift change, stating "I need to go to the bathroom. I can't do it myself." Reminded patient she could do it herself and to use the walker. Medications given whole floated in pudding, and administered without difficulty. Patient cooperative with assessment and cares. No delusions or hallucinations noted at this time.
[2020-02-11 16:04] VITALS: BP 125/67
--- NOTE | 2020-02-11 19:49 | PN ---
DATE: 02/11/2020 SUBJECTIVE: The patient was seen today by telehealth rounds, met with the staff, reviewed the medical records. The patient continues to confused, withdrawn, tearful, exhibiting low frustration tolerance, also repetitive with her statements and difficult to redirect at times. The patient is constantly asking for . OBSERVATION: VITAL SIGNS: Stable. GENERAL: Slept about 7 hours last night. CURRENT MEDICATIONS: Include Geodon 40 mg at night, Cymbalta 60 mg daily, olanzapine 2.5 mg q. 2 hours p.r.n. She is also on carbidopa/levodopa for Parkinson's disease. LABORATORY DATA: The patient's lab reviewed. No significant change. ASSESSMENT: Major depressive disorder, single episode with psychotic features. PLAN: Continue with the current treatment plan. The patient is scheduled around the middle of this month. OCTAVIANO RAMOS MD DR: TIM/neil JOB#: [id number] / [id number]
[2020-02-11] MEDS: ZIPRASIDONE 40 MG CAPSULE. PO SCH (19:59)
[2020-02-11] MEDS: MONTELUKAST 10 MG TABLET. PO SCH (19:59)
--- NOTE | 2020-02-11 22:40 | NUR ---
Pt anxious and disorganized this evening. Pt stating that she is leaving tonight and is afraid because she gets lost in the dark. Pt redirected but still anxious. Compliant with whole medications. Tearful and yelling out at times.
[2020-02-12 05:56] VITALS: BP 148/80
[2020-02-12] MEDS: METOPROLOL TART IMMED RELEASE 25 MG TABLET PO SCH ×2 (08:57→19:46)
[2020-02-12] MEDS: CARBIDOPA/LEVODOPA 25/100MG TABLET PO SCH ×3 (08:57→19:46)
[2020-02-12] MEDS: rOPINIRole 0.5 MG TABLET. PO SCH ×2 (08:57→19:46)
[2020-02-12] MEDS: ACETAMINOPHEN 500 MG TABLET PO SCH ×4 (08:57→19:46)
[2020-02-12] MEDS: DOCUSATE SODIUM 100 MG CAPSULE PO SCH (08:57)
[2020-02-12] MEDS: LACTOBACILLUS RHAMNOSUS GG 1 CAPSULE. PO SCH ×2 (08:57→19:46)
[2020-02-12] MEDS: APIXABAN 2.5 MG TABLET PO SCH ×2 (08:58→19:46)
[2020-02-12] MEDS: NYSTATIN TOPICAL POWDER 15GM BOTTLE. TP SCH ×2 (08:58→19:45)
[2020-02-12] MEDS: DULoxetine HCL 60 MG CAPSULE.DR PO SCH (08:58)
[2020-02-12] MEDS: NEOMYCIN/BACI/POLY/HC OPHTH OINTMENT 3.5GM TUBE. OS SCH ×2 (08:58→19:45)
[2020-02-12] MEDS: PANTOPRAZOLE 40 MG TABLET. PO SCH (08:58)
--- NOTE | 2020-02-12 09:27 | NUR ---
Pt anxious this morning. Continues to act helpless. Compliant with whole medications.
[2020-02-12 15:13] LABS: BILIRUBIN,URINE NEG (NEG); CLARITY,URINE CLEAR; COLOR,URINE YELLOW; GLUCOSE,URINE NEG (NEG); NITRITE,URINE NEG (NEG); UROBILINOGEN,URINE 0.2 mg/dL (0.2 mg/dL)
[2020-02-12 15:14] LABS: BACTERIA,URINE 0 /HPF (0-FEW); RBC,URINE 0 /HPF (0-2); WBC,URINE OCC /HPF (0-4)
[2020-02-12 15:55] VITALS: BP 155/82
[2020-02-12] MEDS: MONTELUKAST 10 MG TABLET. PO SCH (19:45)
[2020-02-12] MEDS: ZIPRASIDONE 40 MG CAPSULE. PO SCH (19:46)
--- NOTE | 2020-02-12 20:52 | NUR ---
Nursing Note: Location of Patient during Assessment: Pt sitting quietly in her room when approached for medications and assessment. Behaviors Mood and Affect this shift: Pt calm, pleasant, and cooperative. Medication Compliant: Compliant with medications administered whole on a spoon. Assessment Compliant: Cooperative and compliant with assessment. Response After Interventions: Pt remains calm, sitting quietly at this time.
--- NOTE | 2020-02-12 22:04 | PDOC ---
Exam Note: Wade Note: Please also refer to the separate dictated note~for this date of service dictated separately.~Patient seen individually. Discussed the patient with Nursing staff reviewed the chart.~Reviewed interim history and current functioning. Reviewed vital signs,~Labs/ Radiology~and current medications noted below. Continue current treatment with the changes noted in the dictated addendum note Assessment: Vital Signs/I&O: Vital Signs Date Time Temp Pulse Resp B/P (MAP) Pulse Ox O2 Delivery O2 Flow Rate FiO2 02/12/20 19:46 81 155/82 02/12/20 19:39 97.5 94 02/12/20 15:55 18 02/12/20 05:56 2.0 02/10/20 05:58 Nasal Cannula I & O 02/11/20 02/11/20 02/12/20 15:00 23:00 07:00 Intake Total 360 ml 480 ml Balance 360 ml 480 ml Labs: Laboratory Tests Test 02/12/20 14:10 Urine Collection Type Unknown Urine Color Yellow Urine Clarity Clear Urine pH 6.0 Urine Specific [place] 1.020 Urine Protein Neg (NEG-TRACE) Urine Glucose (UA) Neg mg/dL (NEG) Urine Ketones (Stick) Trace mg/dL (NEG) Urine Blood Neg (NEG) Urine Nitrite Neg (NEG) Urine Bilirubin Neg (NEG) Urine Urobilinogen Dipstick 0.2 mg/dL (0.2 mg/dL) Urine Leukocyte Esterase Neg (NEG) Urine RBC 0 /HPF (0-2) Urine WBC Occ /HPF (0-4) Urine Bacteria 0 /HPF (0-FEW) Urine Mucus Slight /LPF Current Medications: I have reviewed the current psychotropics carefully including drug interactions. Risk benefit ratio favors no change other than as noted in my dictated progress note. Diagnosis: Problems: (1) Psychotic disorder (2) History of Parkinson's disease (3) Major depressive disorder with psychotic features SILVIO CERON MD Feb 12, 2020 22:04
[2020-02-13 06:02] VITALS: BP 174/93
[2020-02-13] MEDS: DULoxetine HCL 60 MG CAPSULE.DR PO SCH (07:38)
[2020-02-13] MEDS: APIXABAN 2.5 MG TABLET PO SCH ×2 (07:38→19:55)
[2020-02-13] MEDS: rOPINIRole 0.5 MG TABLET. PO SCH ×2 (07:38→19:55)
[2020-02-13] MEDS: CARBIDOPA/LEVODOPA 25/100MG TABLET PO SCH ×3 (07:38→19:54)
[2020-02-13] MEDS: LACTOBACILLUS RHAMNOSUS GG 1 CAPSULE. PO SCH ×2 (07:38→19:54)
[2020-02-13] MEDS: ACETAMINOPHEN 500 MG TABLET PO SCH ×4 (07:39→19:54)
[2020-02-13] MEDS: NEOMYCIN/BACI/POLY/HC OPHTH OINTMENT 3.5GM TUBE. OS SCH ×2 (07:39→19:54)
[2020-02-13] MEDS: DOCUSATE SODIUM 100 MG CAPSULE PO SCH (07:39)
[2020-02-13] MEDS: PANTOPRAZOLE 40 MG TABLET. PO SCH (07:39)
[2020-02-13] MEDS: NYSTATIN TOPICAL POWDER 15GM BOTTLE. TP SCH ×2 (07:39→19:54)
[2020-02-13] MEDS: METOPROLOL TART IMMED RELEASE 25 MG TABLET PO SCH ×2 (07:39→19:54)
--- NOTE | 2020-02-13 09:38 | NUR ---
Nursing Note Pt delusional this am, thinks she is employed here and that no one is working but her. States "Just what are you and all of your cronies going to do when I retire, retire, retire, you will be in a whole world of hurt." I told her good morning. She responds "What's so damn good about it??" Pt compliant with meds and assessment mostly, refuses to take a deep breath. Sitting on the edge of the bed, generally cranky and not wanting to communicate much. Also stares me down while she takes her pills 1 at a time.
--- NOTE | 2020-02-13 10:10 | PDOC ---
Exam Note: Wade Note: This note is a late entry for 02/12/2020 covers elements not covered in my initial note. Subjective: The patient was evaluated on telehealth rounds in the evening of 02/12/2020 with [facility] nursing aid. The unit is shut down due to COVID-19 exposure on the unit with no admissions and discharges for now. Dr. Leroy has covered for me for the past several days since I had been on vacation. Reviewed information with Dr. Leroy. Per Karma CEDENO, the patient slept 7-1/4 hours previous night. Reportedly, she has had an okay day per nursing report. She does appear somewhat helpless and needy. Earlier in the day she felt she could not urinate. UA was checked and is negative for UTI. She had residual urine of 50 mL. Review of Systems: Ambulation impaired. No CV, , pulmonary, eye system symptoms on review. Mental Status Exam: Oriented to herself and situation. Speech is coherent, somewhat tearful at times. Abstraction is fair. Computation is impaired. Attention span is short. She was less tearful, cuevas, depressed as compared to the last time I saw her. No suicidal or homicidal ideation. Laboratory Data: Reviewed. Impression: Major depressive disorder with psychotic features. Psychotic disorder. History of Parkinson disease. Plan: I have carefully reviewed her current psychotropics. No change is ind icated at this time. We may consider adjusting the Cymbalta in due course. Assessment: Vital Signs/I&O: Vital Signs Date Time Temp Pulse Resp B/P (MAP) Pulse Ox O2 Delivery O2 Flow Rate FiO2 02/13/20 07:39 80 174/93 02/13/20 06:02 97.4 18 96 2.0 02/10/20 05:58 Nasal Cannula I & O 0 02/12/20 02/12/20 02/13/20 15:00 23:00 07:00 Intake Total 720 ml 400 ml Balance 720 ml 400 ml Labs: Laboratory Tests Test 02/12/20 14:10 Urine Collection Type Unknown Urine Color Yellow Urine Clarity Clear Urine pH 6.0 Urine Specific [place] 1.020 Urine Protein Neg (NEG-TRACE) Urine Glucose (UA) Neg mg/dL (NEG) Urine Ketones (Stick) Trace mg/dL (NEG) Urine Blood Neg (NEG) Urine Nitrite Neg (NEG) Urine Bilirubin Neg (NEG) Urine Urobilinogen Dipstick 0.2 mg/dL (0.2 mg/dL) Urine Leukocyte Esterase Neg (NEG) Urine RBC 0 /HPF (0-2) Urine WBC Occ /HPF (0-4) Urine Bacteria 0 /HPF (0-FEW) Urine Mucus Slight /LPF Current Medications: I have reviewed the current psychotropics carefully including drug interactions. Risk benefit ratio favors no change other than as noted in my dictated progress note. Diagnosis: Problems: (1) Psychotic disorder (2) History of Parkinson's disease (3) Major depressive disorder with psychotic features SILVIO CERON MD Feb 13, 2020 10:10
[2020-02-13] MEDS ORDERED: OLAN5TAB99 PO (13:06)
[2020-02-13] MEDS ORDERED: ZIPR40CA2 PO (13:08)
[2020-02-13] MEDS ORDERED: ROPI0.25 PO (13:09)
[2020-02-13] MEDS ORDERED: [UNRECOGNIZED DRUG - CODE] OP (13:12)
[2020-02-13] MEDS ORDERED: ONDA4TAB7 PO (13:17)
[2020-02-13] MEDS ORDERED: LACT1CAP21 PO (13:18)
[2020-02-13] MEDS ORDERED: NYST15PO9 TP (13:20)
[2020-02-13 16:01] VITALS: BP 119/71
[2020-02-13 19:39] VITALS: BP 140/67
[2020-02-13] MEDS: MONTELUKAST 10 MG TABLET. PO SCH (19:54)
[2020-02-13] MEDS: ZIPRASIDONE 20 MG CAPSULE. PO SCH (19:55)
--- NOTE | 2020-02-13 20:25 | NUR ---
Nursing Note: Location of Patient during Assessment: Pt sitting up quietly in her chair in her room. Behaviors Mood and Affect this shift: Pt irritable and attention seeking this evening, demanding at times. Medication Compliant: Compliant with medications administered whole on a spoon. Assessment Compliant: Cooperative and compliant with assessment. Response After Interventions: Pt resting quietly in bed at this time.
--- NOTE | 2020-02-13 21:51 | PDOC ---
Exam Note: Wade Note: Please also refer to the separate dictated note~for this date of service dictated separately.~Patient seen individually. Discussed the patient with Nursing staff reviewed the chart.~Reviewed interim history and current functioning. Reviewed vital signs,~Labs/ Radiology~and current medications noted below. Continue current treatment with the changes noted in the dictated addendum note Assessment: Vital Signs/I&O: Vital Signs Date Time Temp Pulse Resp B/P (MAP) Pulse Ox O2 Delivery O2 Flow Rate FiO2 02/13/20 19:54 74 140/67 02/13/20 19:44 98.0 93 02/13/20 19:39 20 Room Air 02/13/20 06:02 2.0 I & O 02/12/20 02/12/20 02/13/20 15:00 23:00 07:00 Intake Total 720 ml 400 ml Balance 720 ml 400 ml Current Medications: Meds: Current Medications Medications (Trade) Dose Ordered Sig/Amilcar Route PRN Reason Start Time Stop Time Status Last Admin Dose Admin Ziprasidone (Geodon) 60 mg QHS PO 02/13/20 21:00 02/13/20 19:55 I have reviewed the current psychotropics carefully including drug interactions. Risk benefit ratio favors no change other than as noted in my dictated progress note. Diagnosis: Problems: (1) Psychotic disorder (2) History of Parkinson's disease (3) Major depressive disorder with psychotic features SILVIO CERON MD Feb 13, 2020 21:51
[2020-02-14 05:37] VITALS: BP 141/84
[2020-02-14] MEDS: ACETAMINOPHEN 500 MG TABLET PO SCH ×4 (07:23→20:10)
[2020-02-14] MEDS: LACTOBACILLUS RHAMNOSUS GG 1 CAPSULE. PO SCH ×2 (07:23→20:10)
[2020-02-14] MEDS: DULoxetine HCL 60 MG CAPSULE.DR PO SCH (07:23)
[2020-02-14] MEDS: rOPINIRole 0.5 MG TABLET. PO SCH ×2 (07:23→20:10)
[2020-02-14] MEDS: APIXABAN 2.5 MG TABLET PO SCH ×2 (07:23→20:10)
[2020-02-14] MEDS: PANTOPRAZOLE 40 MG TABLET. PO SCH (07:24)
[2020-02-14] MEDS: METOPROLOL TART IMMED RELEASE 25 MG TABLET PO SCH ×2 (07:24→20:10)
[2020-02-14] MEDS: CARBIDOPA/LEVODOPA 25/100MG TABLET PO SCH ×3 (07:24→20:09)
[2020-02-14] MEDS: DOCUSATE SODIUM 100 MG CAPSULE PO SCH (07:24)
[2020-02-14] MEDS: NEOMYCIN/BACI/POLY/HC OPHTH OINTMENT 3.5GM TUBE. OS SCH ×2 (07:25→20:10)
[2020-02-14] MEDS: NYSTATIN TOPICAL POWDER 15GM BOTTLE. TP SCH ×2 (07:25→20:10)
--- NOTE | 2020-02-14 12:33 | TX PLAN ---
Interdisciplinary Tx Plan Admission Information Jan 23, 2020 at 11:13 Legal Status (on Admission): Voluntary DPOA/Guardian Name: Prakash Fitch Contact Other Contact Name: [facility] Other Contact Verified Code Status: DNR Allergies: Coded Allergies: Erythromycin Base (Verified Allergy, Unknown, 11/12/13) Moexipril (Verified Allergy, Unknown, 11/12/13) alprazolam (Verified Allergy, Unknown, 11/12/13) azithromycin (Verified Allergy, Unknown, 11/12/13) cefuroxime (Verified Allergy, Unknown, 11/09/13) clindamycin (Verified Allergy, Unknown, 11/09/13) codeine (Verified Allergy, Unknown, 11/12/13) hydrochlorothiazide (Verified Allergy, Unknown, 11/12/13) hydrocodone (Verified Allergy, Unknown, 11/12/13) metronidazole (Verified Allergy, Unknown, 11/12/13) Diagnoses Primary Diagnosis: Psychotic D/O unspecified Reasons for Admission: Delusions, Agitated, Hallucinations, Suspicious/paranoid, Poor impulse control, Other Problem in Patient's Words: Thinks that a lot of this has to do with her having multiple UTI's. Additional Admission Comments: According to the intake, pt is delusional and thinks staff are having an affair with her . Pt is having visual and auditory hallucinations, expressing SI "I just want to " putting herself on the floor, mood lability, irritable, agitated and pacing. Problems Active Problems: delusional SI without definite plan mood lability Inactive Problems: Medication management Pt Strengths/Limitations Ability for [place]: Poor Cognitive Functioning/Ability: Poor Communication Skills/Ability: Fair Financial Resources: Fair Insight/Judgement: Poor Intellectual Ability: Fair Physical Health: Poor Social Skills: Fair Stability in Family: Good Stability in School/Work: Poor Verbal Skills: Fair Discharge Criteria Discharge Criteria: No need for close observ., Adequate arrangements @DC, Improved behavior, Improved mood/thought Preliminary Discharge Plan Preliminary DC Plan: Current Living Arrange. Special Precautions Fall Risk: Low Initial D/C Plan Pt will return to [facility] Identified Discharge Needs: Continued psychiatric services Currently Utilized Resources Currently Utilized Resources/P: Primary care physician Referrals Community Resources: Psychiatrist Identified Problems/Hx/Goals Objectives/Short-Term Goals Short Term Goals: Dec. Hallucination/Delus, Dec. Outbursts, Improved Social Skills, Medication Stabilization, Promote Coping Skill Short Term Goals in Patient's: "Can I get a phone to call my " Interventions/Frequency Staff Interventions/Frequency&: Psychiatrist to assess pt at least 3x per week. Social Work to asses pt at least 2x per week. Nursing to assess behavior, medications and complete 15 minute checks daily. Encourage group participation or 1:1 engagement based off Activity Dept assessment. 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 Education: Pt graduated high school (12th grade) Community Follow-up Primary Care physician Updates to LTC facility Treatment Plan Explained Patient/Coal Shooter had this treatment plan explained to him/her as indicated by the signature below and has been given the opportunity to ask questions and make suggestions: Date: Patient/Coal Shooter Signature: Status Update Update Pt is eating roughly 58% of meals and sleeping on average 6 hours a night. Pt is less irritable but continues to be needy and attention-seeking. Pt is medication compliant and compliant with staff cares. Pt is currently on Geodon 60mg q HS, Cymbalta DR 60mg q daily and Sinemet CR TID. At this time, pt will look to discharge on Tuesday back to her facility at [facility]. SW will make all arrangements with pt family and the facility. MATTEO SALGUERO Feb 14, 2020 12:33
--- NOTE | 2020-02-14 13:45 | NUR ---
Nursing Note Pt continues to be whiny and acts helpless. Tolerates meds and assessments with no resistance. Cooperative and compliant.
[2020-02-14 16:10] VITALS: BP 99/65
[2020-02-14] MEDS: ZIPRASIDONE 20 MG CAPSULE. PO SCH (20:09)
[2020-02-14] MEDS: MONTELUKAST 10 MG TABLET. PO SCH (20:10)
--- NOTE | 2020-02-14 20:48 | NUR ---
Pt in her room at shift change. Pt restless, disorganized and attention seeking but when approached for medications and assessment, pt calm and pleasant. Pt cooperative and compliant with medications and assessment, and is currently resting quietly in bed.
[2020-02-14 21:42] VITALS: BP 159/88
--- NOTE | 2020-02-14 21:44 | PDOC ---
Exam Note: Wade Note: This note is a late entry for 02/13/2020 covers elements not covered in my initial note. Subjective: The patient was evaluated on telehealth rounds in the evening of 02/13/2020 with Mini CEDENO. The unit is shut down due to COVID-19 exposure on the unit with no admissions and discharges for now. Per Pat CEDENO, the patient slept 3-1/2 hours previous night. She has been whining, crying intermittently. In the morning she was delusional, believing she worked here and was telling the staff what would you do once I leave here, wont be able to do all the work yourself. QTc was 470 milliseconds on 40 mg Geodon after she had been on that for 2 days. Review of Systems: Ambulation impaired in wheelchair. No CV, , pulmonary, eye system symptoms on review. Mental Status Exam: Oriented to herself and situation. The patient is less tearful, whining, anxious today as compared to the day before. Speech is coherent. Abstraction is fair. Computation is impaired. Attention span is short. She remains somewhat dysphoric in her mood, suspicious, anxious, labile but less so than before. No suicidal or homicidal ideation. Laboratory Data: Reviewed. Impression: Major depressive disorder with psychotic features. Psychotic disorder. History of Parkinson disease. Plan: Continue psychotropics from initial note including Cymbalta 60 mg a day, Zyprexa p.r.n. and she is on Sinemet and ReQuip for her Parkinsons. She is currently on Geodon 40 mg h.s. We will increase to 20 mg a.m. and 40 mg h.s. Check EKG for QT corrected interval in 2 days. Adjust further as clinically indicated Assessment: Vital Signs/I&O: Vital Signs Date Time Temp Pulse Resp B/P (MAP) Pulse Ox O2 Delivery O2 Flow Rate FiO2 02/14/20 21:42 97.9 88 159/88 (111) 97 02/14/20 16:10 17 Room Air 02/14/20 05:37 2.0 I & O 02/13/20 02/13/20 02/14/20 15:00 23:00 07:00 Intake Total 720 ml 600 ml Balance 720 ml 600 ml Current Medications: I have reviewed the current psychotropics carefully including drug interactions. Risk benefit ratio favors no change other than as noted in my dictated progress note. Diagnosis: Problems: (1) Psychotic disorder (2) History of Parkinson's disease (3) Major depressive disorder with psychotic features SILVIO CERON MD Feb 14, 2020 21:44
--- NOTE | 2020-02-14 21:56 | PDOC ---
Exam Note: Wade Note: Please also refer to the separate dictated note~for this date of service dictated separately.~Patient seen individually. Discussed the patient with Nursing staff reviewed the chart.~Reviewed interim history and current functioning. Reviewed vital signs,~Labs/ Radiology~and current medications noted below. Continue current treatment with the changes noted in the dictated addendum note Assessment: Vital Signs/I&O: Vital Signs Date Time Temp Pulse Resp B/P (MAP) Pulse Ox O2 Delivery O2 Flow Rate FiO2 02/14/20 21:42 97.9 88 159/88 (111) 97 02/14/20 16:10 17 Room Air 02/14/20 05:37 2.0 I & O 02/13/20 02/13/20 02/14/20 14:59 22:59 06:59 Intake Total 720 ml 600 ml Balance 720 ml 600 ml Current Medications: I have reviewed the current psychotropics carefully including drug interactions. Risk benefit ratio favors no change other than as noted in my dictated progress note. Diagnosis: Problems: (1) Psychotic disorder (2) History of Parkinson's disease (3) Major depressive disorder with psychotic features SILVIO CERON MD Feb 14, 2020 21:56
[2020-02-15 05:20] VITALS: BP 146/83
[2020-02-15] MEDS: APIXABAN 2.5 MG TABLET PO SCH ×2 (07:28→20:27)
[2020-02-15] MEDS: METOPROLOL TART IMMED RELEASE 25 MG TABLET PO SCH ×2 (07:29→20:27)
[2020-02-15] MEDS: ACETAMINOPHEN 500 MG TABLET PO SCH ×4 (07:29→20:27)
[2020-02-15] MEDS: DOCUSATE SODIUM 100 MG CAPSULE PO SCH (07:29)
[2020-02-15] MEDS: PANTOPRAZOLE 40 MG TABLET. PO SCH (07:29)
[2020-02-15] MEDS: rOPINIRole 0.5 MG TABLET. PO SCH ×2 (07:29→20:26)
[2020-02-15] MEDS: NEOMYCIN/BACI/POLY/HC OPHTH OINTMENT 3.5GM TUBE. OS SCH ×2 (07:29→20:27)
[2020-02-15] MEDS: DULoxetine HCL 60 MG CAPSULE.DR PO SCH (07:29)
[2020-02-15] MEDS: LACTOBACILLUS RHAMNOSUS GG 1 CAPSULE. PO SCH ×2 (07:29→20:27)
[2020-02-15] MEDS: CARBIDOPA/LEVODOPA 25/100MG TABLET PO SCH ×3 (07:29→20:27)
[2020-02-15] MEDS: NYSTATIN TOPICAL POWDER 15GM BOTTLE. TP SCH ×2 (07:30→20:27)
--- NOTE | 2020-02-15 10:00 | NUR ---
PATIENT IS LOCATED IN PT ROOM AT TIME OF ASSESSMENT AND MEDICATION ADMINISTRATION. PATIENT IS VERY FLAT THIS MORNING. NOT SPEAKING TO THIS NURSE. PT IS ABLE TO FOLLOW COMMANDS. PT REFUSED SHOWER THIS AM, BUT WITH ENCOURAGEMENT PATIENT AGREED TO SHOWER. PATIENT IS IN SHOWER AT THIS TIME. WILL CONTINUE TO MONITOR.
[2020-02-15 15:34] VITALS: BP 131/80
--- NOTE | 2020-02-15 16:26 | NUR ---
[facility] Social Work Discharge Planning Form Patient Name STEFFANIE DONALDSON Admit Date: 22 January 2020 DISCHARGE PLAN Discharge Destination: Pt to return to [facility] Assessment: N/A Level II Assessment: N/A Transportation: Facility to pick pt up; will be with facility transport. Time TBD Special Instructions/Notes: Please fax discharge orders and medication list to the numbers listed below. Please note, pt is discharging on her birthday. DISCHARGE TO FACILITY Facility: [facility] Address: [address]; [place] [address] Contact Name: Julisa Ramiro [Rubber Goods Inspector Tester]: Contact Name: Please ask for the nurse caring for pt upon arrival. PCP: Dr. Kumar Pharmacy: [facility]; WILL NEED SCRIPTS FOR ALL NEW MEDICATIONS Contact Information: [address], [place] [address]
[2020-02-15] MEDS: ZIPRASIDONE 20 MG CAPSULE. PO SCH (20:26)
[2020-02-15] MEDS: MONTELUKAST 10 MG TABLET. PO SCH (20:27)
--- NOTE | 2020-02-15 21:56 | PDOC ---
Exam Note: Wade Note: Please also refer to the separate dictated note~for this date of service dictated separately.~Patient seen individually. Discussed the patient with Nursing staff reviewed the chart.~Reviewed interim history and current functioning. Reviewed vital signs,~Labs/ Radiology~and current medications noted below. Continue current treatment with the changes noted in the dictated addendum note Assessment: Vital Signs/I&O: Vital Signs Date Time Temp Pulse Resp B/P (MAP) Pulse Ox O2 Delivery O2 Flow Rate FiO2 02/15/20 21:24 98.9 93 Room Air 02/15/20 20:27 80 131/80 02/15/20 15:34 18 02/15/20 05:20 2.0 I & O 02/14/20 02/14/20 02/15/20 15:00 23:00 07:00 Intake Total 480 ml 360 ml Balance 480 ml 360 ml Current Medications: I have reviewed the current psychotropics carefully including drug interactions. Risk benefit ratio favors no change other than as noted in my dictated progress note. Diagnosis: Problems: (1) Psychotic disorder (2) History of Parkinson's disease (3) Major depressive disorder with psychotic features SILVIO CERON MD Feb 15, 2020 21:56
--- NOTE | 2020-02-15 22:39 | NUR ---
Pt tearful and attention seeking this evening. Pt continues to act helpless; ie can't hold her water cup, can't put the pills in her mouth by herself. Compliant with whole medication with assistance.
--- NOTE | 2020-02-15 23:15 | PDOC ---
Exam Note: Wade Note: This note is a late entry for 02/14/2020 covers elements not covered in my initial note. Subjective: The patient was evaluated on telehealth rounds in the morning of 02/14/2020 with treatment team meeting with Karla (social media coordinator), Pat CEDENO, and Siri nursing aid. The unit is still on a lockdown due to COVID-19 exposure with no admissions and discharges. Per Pat CEDENO in the evening, sleeping average is 6-1/2 hours. She still has been somewhat anxious, whining at times, tearful but much less-so than before. She is less paranoid about her having an affair. Reviewed her history, diagnoses, plan and transition plans for next Tuesday at the treatment team meeting. Review of Systems: Ambulation impaired in wheelchair. No CV, , pulmonary, eye system symptoms on review. Mental Status Exam: Oriented to herself and situation. The patient was much less anxious, labile, in fact almost smiling at times, which is an improvement for her. She is less paranoid about her having an affair and I questioned her on this individually on telehealth rounds. Speech is coherent. Abstraction is fair. Computation is impaired. Attention span is short. No suicidal or homicidal ideation. Laboratory Data: Reviewed. Impression: Major depressive disorder with psychotic features. Psychotic disorder. History of Parkinson disease. Plan: No change from initial note. She will have COVID-19 screening test morning of 02/14. Assessment: Vital Signs/I&O: Vital Signs Date Time Temp Pulse Resp B/P (MAP) Pulse Ox O2 Delivery O2 Flow Rate FiO2 02/15/20 21:24 98.9 93 Room Air 02/15/20 20:27 80 131/80 02/15/20 15:34 18 02/15/20 05:20 2.0 I & O 02/14/20 02/14/20 02/15/20 15:00 23:00 07:00 Intake Total 480 ml 360 ml Balance 480 ml 360 ml Current Medications: I have reviewed the current psychotropics carefully including drug interactions. Risk benefit ratio favors no change other than as noted in my dictated progress note. Diagnosis: Problems: (1) Psychotic disorder (2) History of Parkinson's disease (3) Major depressive disorder with psychotic features SILVIO CERON MD Feb 15, 2020 23:15
[2020-02-16 05:46] VITALS: BP 137/67
[2020-02-16] MEDS: rOPINIRole 0.5 MG TABLET. PO SCH (08:11)
[2020-02-16] MEDS: ACETAMINOPHEN 500 MG TABLET PO SCH ×4 (08:11→20:48)
[2020-02-16] MEDS: METOPROLOL TART IMMED RELEASE 25 MG TABLET PO SCH ×2 (08:11→20:49)
[2020-02-16] MEDS: DULoxetine HCL 60 MG CAPSULE.DR PO SCH (08:11)
[2020-02-16] MEDS: PANTOPRAZOLE 40 MG TABLET. PO SCH (08:11)
[2020-02-16] MEDS: LACTOBACILLUS RHAMNOSUS GG 1 CAPSULE. PO SCH ×2 (08:11→20:47)
[2020-02-16] MEDS: DOCUSATE SODIUM 100 MG CAPSULE PO SCH (08:11)
[2020-02-16] MEDS: APIXABAN 2.5 MG TABLET PO SCH ×2 (08:11→20:47)
[2020-02-16] MEDS: NYSTATIN TOPICAL POWDER 15GM BOTTLE. TP SCH ×2 (08:12→20:46)
[2020-02-16] MEDS: NEOMYCIN/BACI/POLY/HC OPHTH OINTMENT 3.5GM TUBE. OS SCH ×2 (08:12→20:47)
[2020-02-16] MEDS: CARBIDOPA/LEVODOPA 25/100MG TABLET PO SCH ×3 (08:12→20:50)
--- NOTE | 2020-02-16 08:57 | NUR ---
Patient calm and cooperative. Patient compliant with medication and assessment.
[2020-02-16] MEDS: MAG HYDROX/AL HYDROX/SIMETH 30 ML ORAL.SUSP PO PRN (10:20)
--- NOTE | 2020-02-16 13:12 | EKG ---
[address] [address] Test Date: 2020-02-16 Test Time: 10:09:09 Pat Name: STEFFANIE DONALDSON Department: Room: [facility] 1 Gender: F Train Examiner: : 1935 Requested By: SILVIO CERON Order Number: [id number] Reading MD: Ramirez Addison MD Measurements Intervals [place] Rate: 72 P: VA: QRS: -81 QRSD: 130 T: 38 QT: 410 QTc: 451 Interpretive Statements ATRIAL FIBRILLATION LAFB RBBB Electronically Signed On 02-18-2020 13:58:31 CDT by Ramirez Addison MD
[2020-02-16] MEDS: rOPINIRole 1 MG TABLET. PO SCH ×2 (14:00→20:47)
[2020-02-16 15:56] VITALS: BP 180/78
[2020-02-16] MEDS: ZIPRASIDONE 20 MG CAPSULE. PO SCH (20:48)
[2020-02-16] MEDS: MONTELUKAST 10 MG TABLET. PO SCH (20:48)
--- NOTE | 2020-02-16 21:49 | PDOC ---
Exam Note: Wade Note: Please also refer to the separate dictated note~for this date of service dictated separately.~Patient seen individually. Discussed the patient with Nursing staff reviewed the chart.~Reviewed interim history and current functioning. Reviewed vital signs,~Labs/ Radiology~and current medications noted below. Continue current treatment with the changes noted in the dictated addendum note Assessment: Vital Signs/I&O: Vital Signs Date Time Temp Pulse Resp B/P (MAP) Pulse Ox O2 Delivery O2 Flow Rate FiO2 02/16/20 20:49 70 180/78 02/16/20 15:56 98.1 20 98 Room Air 02/16/20 05:46 2.0 I & O 02/15/20 02/15/20 02/16/20 15:00 23:00 07:00 Intake Total 436 ml 820 ml Balance 436 ml 820 ml Current Medications: Meds: Current Medications Medications (Trade) Dose Ordered Sig/Amilcar Route PRN Reason Start Time Stop Time Status Last Admin Dose Admin Ropinirole HCl (Requip) 1 mg TID PO 02/16/20 14:00 02/16/20 20:47 I have reviewed the current psychotropics carefully including drug interactions. Risk benefit ratio favors no change other than as noted in my dictated progress note. Diagnosis: Problems: (1) Psychotic disorder (2) History of Parkinson's disease (3) Major depressive disorder with psychotic features SILVIO CERON MD Feb 16, 2020 21:49
--- NOTE | 2020-02-16 22:00 | NUR ---
Patient is in her room on assumption of care. She is compliant with assessments and medications taken a few at a time on a spoon. She is anxious about her , asking this nurse "Do you know my ? He's leaving me for a 27 year old and obviously I am upset about that." She did not perseverate on that, though, and began talking about her daughter and how hard she works. No agitation. Patient denies any pain or discomfort. She appears to be sleeping comfortably at present time. Will continue to monitor.
[2020-02-17 06:21] VITALS: BP 148/85
--- NOTE | 2020-02-17 06:31 | PDOC ---
Exam Note: Wade Note: This note is a late entry for 02/15/2020 covers elements not covered in my initial note. Subjective: The patient was evaluated on telehealth rounds in the evening of 02/15/2020 with Siri nursing aid. The unit is shut down due to COVID-19 exposure on the unit with no admissions and discharges per Department of Health directives. Per Pat RN in the evening, she slept 6-1/2 hours. The patient has had one EKG on Geodon 40 mg a day. QTc was unremarkable. This is being repeated since we have increased the Geodon to 60 mg a day. She has been whiny, sat herself on the floor, has been anxious and restless at times. Received Zyprexa p.r.n. 4 p.m., helpless at times. Review of Systems: Ambulation impaired in wheelchair. No CV, , pulmonary, eye system symptoms on review. Mental Status Exam: Oriented to herself and at times situation. Speech has some latency, coherent, can be pressured at times. Abstraction is fair. Computation is impaired. Language function is intact. Short-term memory has some deficits. She is less delusional as I questioned her closely about her husbands infidelity. She was less fixated on this. No suicidal or homicidal ideation. Laboratory Data: Reviewed. Impression: Major depressive disorder with psychotic features. Psychotic disorder. History of Parkinson disease. Plan: No change from initial note. Assessment: Vital Signs/I&O: Vital Signs Date Time Temp Pulse Resp B/P (MAP) Pulse Ox O2 Delivery O2 Flow Rate FiO2 02/17/20 06:21 98.0 67 14 148/85 (106) 99 Nasal Cannula 2.0 I & O 02/16/20 02/16/20 02/17/20 14:59 22:59 06:59 Intake Total 480 ml 640 ml Balance 480 ml 640 ml Current Medications: Meds: Current Medications Medications (Trade) Dose Ordered Sig/Amilcar Route PRN Reason Start Time Stop Time Status Last Admin Dose Admin Ropinirole HCl (Requip) 1 mg TID PO 02/16/20 14:00 02/16/20 20:47 I have reviewed the current psychotropics carefully including drug interactions. Risk benefit ratio favors no change other than as noted in my dictated progress note. Diagnosis: Problems: (1) Psychotic disorder (2) History of Parkinson's disease (3) Major depressive disorder with psychotic features SILVIO CERON MD Feb 17, 2020 06:31
--- NOTE | 2020-02-17 06:42 | PDOC ---
Exam Note: Wade Note: This note is a late entry for 02/16/2020 covers elements not covered in my initial note. Subjective: The patient was evaluated on telehealth rounds in the evening of 02/16/2020 with Jose CEDENO. The unit is shut down due to COVID-19 exposure on the unit with no admissions and discharges per Department of Health directives. Per Jose RN in the evening, she slept 7-1/2 hours previous night. She remains little paranoid. Her ReQuip was increased by Dr. Martins and it is questionable whether this is further worsening her paranoia but it is necessary for her Parkinsons. QTc is 453. Today per nursing report she has felt her has been at her bedside telling her that he is having an affair with someone else and for the past couple of days psychosis seemed to have resolved. Nevertheless again this could be attributed to the increase of ReQuip but we are compensating or at least attempting to compensate with increase of Geodon. EKG has been stable. Review of Systems: Ambulation impaired in wheelchair. No CV, , pulmonary, eye system symptoms on review. Mental Status Exam: Oriented to herself and at times situation. She was somewhat whiny, tearful, less so than before but definitely paranoid clearly telling me her was having an affair nothing I could tell her to convince her. Speech has some latency, coherent, can be pressured at times. Abstraction is fair. Computation is impaired. Language function is intact. Short-term memory has some deficits. No suicidal or homicidal ideation. Laboratory Data: Reviewed. Impression: Major depressive disorder with psychotic features. Psychotic disorder. History of Parkinson disease. Plan: Continue psychotropics from initial note. We may need to increase Geodon further in due course. Assessment: Vital Signs/I&O: Vital Signs Date Time Temp Pulse Resp B/P (MAP) Pulse Ox O2 Delivery O2 Flow Rate FiO2 02/17/20 06:21 98.0 67 14 148/85 (106) 99 Nasal Cannula 2.0 I & O 02/16/20 02/16/20 02/17/20 15:00 23:00 07:00 Intake Total 480 ml 640 ml Balance 480 ml 640 ml Current Medications: Meds: Current Medications Medications (Trade) Dose Ordered Sig/Amilcar Route PRN Reason Start Time Stop Time Status Last Admin Dose Admin Ropinirole HCl (Requip) 1 mg TID PO 02/16/20 14:00 02/16/20 20:47 I have reviewed the current psychotropics carefully including drug interactions. Risk benefit ratio favors no change other than as noted in my dictated progress note. Diagnosis: Problems: (1) Psychotic disorder (2) History of Parkinson's disease (3) Major depressive disorder with psychotic features SILVIO CERON MD Feb 17, 2020 06:42
[2020-02-17] MEDS: DOCUSATE SODIUM 100 MG CAPSULE PO SCH (07:51)
[2020-02-17] MEDS: PANTOPRAZOLE 40 MG TABLET. PO SCH (07:51)
[2020-02-17] MEDS: ACETAMINOPHEN 500 MG TABLET PO SCH ×4 (07:52→20:45)
[2020-02-17] MEDS: NYSTATIN TOPICAL POWDER 15GM BOTTLE. TP SCH ×2 (07:52→20:46)
[2020-02-17] MEDS: LACTOBACILLUS RHAMNOSUS GG 1 CAPSULE. PO SCH ×2 (07:52→20:44)
[2020-02-17] MEDS: CARBIDOPA/LEVODOPA 25/100MG TABLET PO SCH ×3 (07:52→20:45)
[2020-02-17] MEDS: NEOMYCIN/BACI/POLY/HC OPHTH OINTMENT 3.5GM TUBE. OS SCH ×2 (07:52→20:43)
[2020-02-17] MEDS: APIXABAN 2.5 MG TABLET PO SCH ×2 (07:52→20:46)
[2020-02-17] MEDS: rOPINIRole 1 MG TABLET. PO SCH ×3 (07:52→20:45)
[2020-02-17] MEDS: METOPROLOL TART IMMED RELEASE 25 MG TABLET PO SCH ×2 (07:52→20:45)
[2020-02-17] MEDS: DULoxetine HCL 60 MG CAPSULE.DR PO SCH (07:52)
--- NOTE | 2020-02-17 09:13 | NUR ---
Patient calm and cooperative. Patient compliant with medication and assessment.
[2020-02-17 15:58] VITALS: BP 149/86
[2020-02-17] MEDS: ZIPRASIDONE 20 MG CAPSULE. PO SCH (20:46)
[2020-02-17] MEDS: MONTELUKAST 10 MG TABLET. PO SCH (20:46)
--- NOTE | 2020-02-17 21:50 | PDOC ---
Exam Note: Wade Note: Please also refer to the separate dictated note~for this date of service dictated separately.~Patient seen individually. Discussed the patient with Nursing staff reviewed the chart.~Reviewed interim history and current functioning. Reviewed vital signs,~Labs/ Radiology~and current medications noted below. Continue current treatment with the changes noted in the dictated addendum note Assessment: Vital Signs/I&O: Vital Signs Date Time Temp Pulse Resp B/P (MAP) Pulse Ox O2 Delivery O2 Flow Rate FiO2 02/17/20 20:45 82 149/86 02/17/20 20:21 98.1 94 02/17/20 15:58 20 02/17/20 06:21 Nasal Cannula 2.0 I & O 02/16/20 02/16/20 02/17/20 15:00 23:00 07:00 Intake Total 480 ml 640 ml Balance 480 ml 640 ml Current Medications: I have reviewed the current psychotropics carefully including drug interactions. Risk benefit ratio favors no change other than as noted in my dictated progress note. Diagnosis: Problems: (1) Psychotic disorder (2) History of Parkinson's disease (3) Major depressive disorder with psychotic features SILVIO CERON MD Feb 17, 2020 21:50
--- NOTE | 2020-02-17 22:00 | NUR ---
Patient is in her room on assumption of care. She is compliant with assessments and medications taken a few at a time on a spoon. She continues to be anxious about her cheating on her, but was easily redirected to other topics of conversation. No agitation. Patient denies any pain or discomfort. She appears to be sleeping comfortably at present time. Will continue to monitor.
[2020-02-18 05:43] VITALS: BP 161/75
[2020-02-18] MEDS: PANTOPRAZOLE 40 MG TABLET. PO SCH (08:31)
[2020-02-18] MEDS: NEOMYCIN/BACI/POLY/HC OPHTH OINTMENT 3.5GM TUBE. OS SCH ×2 (08:31→19:57)
[2020-02-18] MEDS: APIXABAN 2.5 MG TABLET PO SCH ×2 (08:32→19:57)
[2020-02-18] MEDS: rOPINIRole 1 MG TABLET. PO SCH ×3 (08:32→19:58)
[2020-02-18] MEDS: NYSTATIN TOPICAL POWDER 15GM BOTTLE. TP SCH ×2 (08:32→19:58)
[2020-02-18] MEDS: METOPROLOL TART IMMED RELEASE 25 MG TABLET PO SCH ×2 (08:32→19:58)
[2020-02-18] MEDS: DOCUSATE SODIUM 100 MG CAPSULE PO SCH (08:32)
[2020-02-18] MEDS: DULoxetine HCL 60 MG CAPSULE.DR PO SCH (08:32)
[2020-02-18] MEDS: LACTOBACILLUS RHAMNOSUS GG 1 CAPSULE. PO SCH ×2 (08:32→19:57)
[2020-02-18] MEDS: ACETAMINOPHEN 500 MG TABLET PO SCH ×4 (08:32→19:58)
[2020-02-18] MEDS: CARBIDOPA/LEVODOPA 25/100MG TABLET PO SCH ×3 (08:32→19:58)
--- NOTE | 2020-02-18 09:52 | NUR ---
Pt is cooperative, calm, and compliant. She is withdrawn with staff interaction. She needs encouragement to complete ADL's She is compliant with her medication and assessment.
[2020-02-18 13:09] LABS: BASO % 0 % (0-3); EOS # 0.2 x10^3/uL (0.0-0.7); EOS % 2 % (0-3); HEMATOCRIT 40.3 % (36.0-47.0); HEMOGLOBIN 13.2 g/dL (12.0-15.5); LYMPH # 2.3 x10^3/uL (1.0-4.8); LYMPH % 22 % (24-48); MEAN CORPUSCULAR HEMOGLOBIN 30 pg (25-35); MEAN CORPUSCULAR HGB CONC 33 g/dL (31-37); MEAN CORPUSCULAR VOLUME 92 fL (79-100); MONO # 0.7 x10^3/uL (0.0-1.1); MONO % 6 % (0-9); NEUT # 7.2 x10^3uL (1.8-7.7); NEUT % 70 % (31-73); PLATELET COUNT 400 x10^3/uL (140-400); RED BLOOD COUNT 4.36 x10^6/uL (3.50-5.40); RED CELL DISTRIBUTION WIDTH 14.8 % (11.5-14.5); WHITE BLOOD COUNT 10.4 x10^3/uL (4.0-11.0)
[2020-02-18 13:23] LABS: ALBUMIN 3.6 g/dL (3.4-5.0); CREATININE 0.9 mg/dL (0.6-1.0); GFR 59.7; POTASSIUM 4.7 mmol/L (3.5-5.1); TOTAL BILIRUBIN 0.6 mg/dL (0.2-1.0); TOTAL PROTEIN 7.3 g/dL (6.4-8.2)
--- NOTE | 2020-02-18 15:00 | NUR ---
Pt was door checking. CHOIR MEMBER attempted to redirect pt multiple times. Pt placed herself on the floor and would not get up. Staff gave pt a pillow and a blanket and checked on pt every 15 min to assure safety and comfort. When pt was ready to get up staff assisted pt to her feet x 2 assisted and walked with pt to her room.
[2020-02-18 18:35] VITALS: BP 146/78
[2020-02-18] MEDS: MONTELUKAST 10 MG TABLET. PO SCH (19:58)
[2020-02-18] MEDS: ZIPRASIDONE 20 MG CAPSULE. PO SCH (19:58)
--- NOTE | 2020-02-18 21:46 | NUR ---
PT in room at time of assessment. PT upset and crying about not knowing orientation questions on assessment. PT redirected to topic of medications and walker use. PT calmed. PT compliant with medications and assessment. PT took medications 2-3 at a time on a spoon.
--- NOTE | 2020-02-18 22:12 | PDOC ---
Exam Note: Wade Note: Please also refer to the separate dictated note~for this date of service dictated separately.~Patient seen individually. Discussed the patient with Nursing staff reviewed the chart.~Reviewed interim history and current functioning. Reviewed vital signs,~Labs/ Radiology~and current medications noted below. Continue current treatment with the changes noted in the dictated addendum note Assessment: Vital Signs/I&O: Vital Signs Date Time Temp Pulse Resp B/P (MAP) Pulse Ox O2 Delivery O2 Flow Rate FiO2 02/18/20 21:23 98.2 94 02/18/20 19:58 87 146/78 02/18/20 18:35 16 02/18/20 05:43 2.0 02/17/20 06:21 Nasal Cannula I & O 02/17/20 02/17/20 02/18/20 15:00 23:00 07:00 Intake Total 600 ml Balance 600 ml Labs: Laboratory Tests Test 02/18/20 12:58 White Blood Count 10.4 x10^3/uL (4.0-11.0) Red Blood Count 4.36 x10^6/uL (3.50-5.40) Hemoglobin 13.2 g/dL (12.0-15.5) Hematocrit 40.3 % (36.0-47.0) Mean Corpuscular Volume 92 fL (79-100) Mean Corpuscular Hemoglobin 30 pg (25-35) Mean Corpuscular Hemoglobin Concent 33 g/dL (31-37) Red Cell Distribution Width 14.8 % (11.5-14.5) H Platelet Count 400 x10^3/uL (140-400) Neutrophils (%) (Auto) 70 % (31-73) Lymphocytes (%) (Auto) 22 % (24-48) L Monocytes (%) (Auto) 6 % (0-9) Eosinophils (%) (Auto) 2 % (0-3) Basophils (%) (Auto) 0 % (0-3) Neutrophils # (Auto) 7.2 x10^3uL (1.8-7.7) Lymphocytes # (Auto) 2.3 x10^3/uL (1.0-4.8) Monocytes # (Auto) 0.7 x10^3/uL (0.0-1.1) Eosinophils # (Auto) 0.2 x10^3/uL (0.0-0.7) Basophils # (Auto) 0.0 x10^3/uL (0.0-0.2) Sodium Level 139 mmol/L (136-145) Potassium Level 4.7 mmol/L (3.5-5.1) Chloride Level 102 mmol/L (98-107) Carbon Dioxide Level 31 mmol/L (21-32) Anion Gap 6 (6-14) Blood Urea Nitrogen 14 mg/dL (7-20) Creatinine 0.9 mg/dL (0.6-1.0) Estimated GFR (Cockcroft-Gault) 59.7 BUN/Creatinine Ratio 16 (6-20) Glucose Level 122 mg/dL (70-99) H Calcium Level 10.0 mg/dL (8.5-10.1) Total Bilirubin 0.6 mg/dL (0.2-1.0) Aspartate Amino Transferase (AST) 14 U/L (15-37) L Alanine Aminotransferase (ALT) 8 U/L (14-59) L Alkaline Phosphatase 139 U/L (46-116) H Total Protein 7.3 g/dL (6.4-8.2) Albumin 3.6 g/dL (3.4-5.0) Albumin/Globulin Ratio 1.0 (1.0-1.7) Current Medications: I have reviewed the current psychotropics carefully including drug interactions. Risk benefit ratio favors no change other than as noted in my dictated progress note. Diagnosis: Problems: (1) Psychotic disorder (2) History of Parkinson's disease (3) Major depressive disorder with psychotic features SILVIO CERON MD Feb 18, 2020 22:12
[2020-02-19 05:42] VITALS: BP 135/79
[2020-02-19] MEDS: DULoxetine HCL 60 MG CAPSULE.DR PO SCH (08:03)
[2020-02-19] MEDS: ACETAMINOPHEN 500 MG TABLET PO SCH ×4 (08:03→20:10)
[2020-02-19] MEDS: LACTOBACILLUS RHAMNOSUS GG 1 CAPSULE. PO SCH ×2 (08:03→20:10)
[2020-02-19] MEDS: PANTOPRAZOLE 40 MG TABLET. PO SCH (08:03)
[2020-02-19] MEDS: APIXABAN 2.5 MG TABLET PO SCH ×2 (08:03→20:11)
[2020-02-19] MEDS: CARBIDOPA/LEVODOPA 25/100MG TABLET PO SCH ×3 (08:03→20:11)
[2020-02-19] MEDS: DOCUSATE SODIUM 100 MG CAPSULE PO SCH (08:03)
[2020-02-19] MEDS: METOPROLOL TART IMMED RELEASE 25 MG TABLET PO SCH ×2 (08:04→20:12)
[2020-02-19] MEDS: rOPINIRole 1 MG TABLET. PO SCH ×3 (08:04→20:10)
[2020-02-19] MEDS: NYSTATIN TOPICAL POWDER 15GM BOTTLE. TP SCH ×2 (08:06→20:10)
[2020-02-19] MEDS: NEOMYCIN/BACI/POLY/HC OPHTH OINTMENT 3.5GM TUBE. OS SCH ×2 (08:06→20:10)
--- NOTE | 2020-02-19 10:47 | NUR ---
Nursing note: Pt in her room for morning meds and assessment. She was calm, pleasant, compliant with meds whole and cooperative with her assessment. Pt stated that she was doing well this morning. She denied pain and had no other complaints at that time. Pt has become slightly more delusional as the morning progresses. Pt attempted to go into another pt's bathroom after her shower and has been asking staff to take her outside to her car. Pt continues to be redirected. Will continue to monitor.
--- NOTE | 2020-02-19 12:37 | NUR ---
EMIL contacted Julisa at [facility] and let her know that at this time, the health department has recommended that staff all be tested. If all staff are negative, then they will allow for discharges. Julisa questioned if pt would get tested again as the pt was just positive on Tuesday. EMIL reports that pt was tested towards the end of last week; however, it they feel the need to have pt tested SW could have that happen. Julisa agreed that she would like pt tested again and could easily pick pt up on Tuesday between 10 and 11 if it all goes well.
[2020-02-19 15:29] VITALS: BP 123/78
[2020-02-19] MEDS: MONTELUKAST 10 MG TABLET. PO SCH (20:10)
[2020-02-19] MEDS: ZIPRASIDONE 20 MG CAPSULE. PO SCH (20:11)
--- NOTE | 2020-02-19 21:54 | PDOC ---
Exam Note: Wade Note: Please also refer to the separate dictated note~for this date of service dictated separately.~Patient seen individually. Discussed the patient with Nursing staff reviewed the chart.~Reviewed interim history and current functioning. Reviewed vital signs,~Labs/ Radiology~and current medications noted below. Continue current treatment with the changes noted in the dictated addendum note Assessment: Vital Signs/I&O: Vital Signs Date Time Temp Pulse Resp B/P (MAP) Pulse Ox O2 Delivery O2 Flow Rate FiO2 02/19/20 20:12 77 123/78 02/19/20 19:50 98.3 92 02/19/20 15:29 18 Room Air 02/19/20 05:42 2.0 I & O 02/18/20 02/18/20 02/19/20 15:00 23:00 07:00 Intake Total 554 ml 480 ml Balance 554 ml 480 ml Current Medications: I have reviewed the current psychotropics carefully including drug interactions. Risk benefit ratio favors no change other than as noted in my dictated progress note. Diagnosis: Problems: (1) Psychotic disorder (2) History of Parkinson's disease (3) Major depressive disorder with psychotic features SILVIO CERON MD Feb 19, 2020 21:54
--- NOTE | 2020-02-19 22:27 | NUR ---
Nursing Note pt pleasant and cooperative this PM. Takes po meds whole, only after she dumped them down the front of her gown. Found them all and gave them to her myself while she held the water cup. No behaviors, pleasant but looks suspiciously at me while I did her assessment.
[2020-02-20 05:40] VITALS: BP 153/75
[2020-02-20] MEDS: NEOMYCIN/BACI/POLY/HC OPHTH OINTMENT 3.5GM TUBE. OS SCH ×2 (08:08→20:46)
[2020-02-20] MEDS: rOPINIRole 1 MG TABLET. PO SCH ×3 (08:08→20:48)
[2020-02-20] MEDS: DOCUSATE SODIUM 100 MG CAPSULE PO SCH (08:08)
[2020-02-20] MEDS: METOPROLOL TART IMMED RELEASE 25 MG TABLET PO SCH ×2 (08:09→20:48)
[2020-02-20] MEDS: LACTOBACILLUS RHAMNOSUS GG 1 CAPSULE. PO SCH ×2 (08:09→20:46)
[2020-02-20] MEDS: ACETAMINOPHEN 500 MG TABLET PO SCH ×4 (08:09→20:49)
[2020-02-20] MEDS: APIXABAN 2.5 MG TABLET PO SCH ×2 (08:09→20:48)
[2020-02-20] MEDS: CARBIDOPA/LEVODOPA 25/100MG TABLET PO SCH ×3 (08:09→20:49)
[2020-02-20] MEDS: DULoxetine HCL 60 MG CAPSULE.DR PO SCH (08:09)
[2020-02-20] MEDS: PANTOPRAZOLE 40 MG TABLET. PO SCH (08:09)
[2020-02-20] MEDS: NYSTATIN TOPICAL POWDER 15GM BOTTLE. TP SCH ×2 (08:09→20:46)
--- NOTE | 2020-02-20 10:44 | NUR ---
Nursing Note: Pt in her room for morning meds and assessment. She was compliant with meds whole and cooperative with her assessment. When asked how she was doing, her response was "tolerable". Pt refused to explain further and denied having any pain or any other complaints. Pt is currently sitting quietly in her room. Will continue to monitor.
--- NOTE | 2020-02-20 11:32 | PDOC ---
Exam Note: Wade Note: This note is a late entry for 02/17/2020 covers elements not covered in my initial note. Subjective: The patient was evaluated on telehealth rounds in the evening of 02/17/2020 due to COVID-19 restrictions on the unit with no admissions and discharges. Per Jose RN in the evening, she slept 6-1/2 hours previous night. She has been pleasant, less delusional about her having an affair but this was evident in the morning, not in the evening. Review of Systems: Ambulation impaired in wheelchair. No CV, , pulmonary, eye system symptoms on review. Mental Status Exam: Oriented to herself and at times situation. She is pleasant, less delusional. Speech has some latency, coherent. Abstraction is fair. Computation is impaired. Language function is intact. Short-term memory has some deficits. No suicidal or homicidal ideation. Laboratory Data: Reviewed. Impression: Major depressive disorder with psychotic features. Psychotic disorder. History of Parkinson disease. Plan: Continue psychotropics from initial note. Increase of ReQuip and Sinemet are worsening some of her intermittent psychosis and we are compensating with Geodon dosage change. Assessment: Vital Signs/I&O: Vital Signs Date Time Temp Pulse Resp B/P (MAP) Pulse Ox O2 Delivery O2 Flow Rate FiO2 02/20/20 08:09 70 153/75 02/20/20 05:40 97.6 16 99 2.0 02/19/20 15:29 Room Air I & O 02/19/20 02/19/20 02/20/20 15:00 23:00 07:00 Intake Total 720 ml 480 ml Balance 720 ml 480 ml Current Medications: I have reviewed the current psychotropics carefully including drug interactions. Risk benefit ratio favors no change other than as noted in my dictated progress note. Diagnosis: Problems: (1) Psychotic disorder (2) History of Parkinson's disease (3) Major depressive disorder with psychotic features SILVIO CERON MD Feb 20, 2020 11:32
--- NOTE | 2020-02-20 11:44 | PDOC ---
Exam Note: Wade Note: This note is a late entry for 02/18/2020 covers elements not covered in my initial note. Subjective: The patient was reviewed on telehealth rounds in the evening of 02/18/2020 with Neelam CEDENO due to COVID-19 restrictions on the unit with no admissions and discharges. She slept 6 hours previous night. She was somewhat helpless at times, attention seeking, put herself on the floor, less delusional about her having an affair. Review of Systems: Ambulation impaired in wheelchair. No CV, , pulmonary, eye system symptoms on review. Mental Status Exam: Oriented to herself and at times situation. She was less delusional about her having an affair. Speech has some latency, coherent, can be pressured at times. Abstraction is fair. Computation is impaired. Language function is intact. Short-term memory has some deficits. No suicidal or homicidal ideation. Laboratory Data: Reviewed. Impression: Major depressive disorder with psychotic features. Psychotic disorder. History of Parkinson disease. Plan: Continue psychotropics from initial note. Assessment: Vital Signs/I&O: Vital Signs Date Time Temp Pulse Resp B/P (MAP) Pulse Ox O2 Delivery O2 Flow Rate FiO2 02/20/20 08:09 70 153/75 02/20/20 05:40 97.6 16 99 2.0 02/19/20 15:29 Room Air I & O 02/19/20 02/19/20 02/20/20 15:00 23:00 07:00 Intake Total 720 ml 480 ml Balance 720 ml 480 ml Current Medications: I have reviewed the current psychotropics carefully including drug interactions. Risk benefit ratio favors no change other than as noted in my dictated progress note. Diagnosis: Problems: (1) Psychotic disorder (2) History of Parkinson's disease (3) Major depressive disorder with psychotic features SILVIO CERON MD Feb 20, 2020 11:44
--- NOTE | 2020-02-20 11:52 | PDOC ---
Exam Note: Wade Note: This note is a late entry for 02/19/2020 covers elements not covered in my initial note. Subjective: The patient was reviewed on telehealth rounds in the evening of 02/19/2020 with Sylwia CEDENO due to COVID-19 restrictions on the unit with no admissions and discharges. Per Sylwia CEDENO in the evening, she slept 6-1/2 hours previous night. She is somewhat tearful. It [birth year] today. Her called and talked to her at length. She was less delusional about him but somewhat perplexed as I met with her on telehealth rounds in the evening. Review of Systems: Ambulation impaired in wheelchair. No CV, , pulmonary, eye system symptoms on review. Mental Status Exam: Oriented to herself and at times situation. She appears less delusional. Speech has some latency, coherent. Abstraction is fair. Computation is impaired. Language function is intact. Short-term memory has some deficits. No suicidal or homicidal ideation. Laboratory Data: Reviewed. Impression: Major depressive disorder with psychotic features. Psychotic disorder. History of Parkinson disease. Plan: Continue psychotropics from initial note. Assessment: Vital Signs/I&O: Vital Signs Date Time Temp Pulse Resp B/P (MAP) Pulse Ox O2 Delivery O2 Flow Rate FiO2 02/20/20 08:09 70 153/75 02/20/20 05:40 97.6 16 99 2.0 02/19/20 15:29 Room Air I & O 02/19/20 02/19/20 02/20/20 15:00 23:00 07:00 Intake Total 720 ml 480 ml Balance 720 ml 480 ml Current Medications: I have reviewed the current psychotropics carefully including drug interactions. Risk benefit ratio favors no change other than as noted in my dictated progress note. Diagnosis: Problems: (1) Psychotic disorder (2) History of Parkinson's disease (3) Major depressive disorder with psychotic features SILVIO CERON MD Feb 20, 2020 11:52
--- NOTE | 2020-02-20 14:27 | NUR ---
Nursing note: Pt is hallucinating saying there is a man behind the screen in her room that is talking to her. Pt also is seeing her . She is very delusional and suspicious of cares being done for her, asking about why lab work is being done. Pt is very upset with responses given to her saying "you're just as big of a fibber as the rest of them!" Pt is unable to be redirected. PRN given. Will continue to monitor.
[2020-02-20 15:23] VITALS: BP 172/115
[2020-02-20] MEDS: ZIPRASIDONE 80 MG CAPSULE. PO SCH (20:47)
[2020-02-20] MEDS: MONTELUKAST 10 MG TABLET. PO SCH (20:47)
--- NOTE | 2020-02-20 21:50 | PDOC ---
Exam Note: Wade Note: Please also refer to the separate dictated note~for this date of service dictated separately.~Patient seen individually. Discussed the patient with Nursing staff reviewed the chart.~Reviewed interim history and current functioning. Reviewed vital signs,~Labs/ Radiology~and current medications noted below. Continue current treatment with the changes noted in the dictated addendum note Assessment: Vital Signs/I&O: Vital Signs Date Time Temp Pulse Resp B/P (MAP) Pulse Ox O2 Delivery O2 Flow Rate FiO2 02/20/20 20:54 98.8 97 02/20/20 20:48 86 176/92 02/20/20 15:23 18 Room Air 02/20/20 05:40 2.0 I & O 02/19/20 02/19/20 02/20/20 14:59 22:59 06:59 Intake Total 720 ml 480 ml Balance 720 ml 480 ml Current Medications: Meds: Current Medications Medications (Trade) Dose Ordered Sig/Amilcar Route PRN Reason Start Time Stop Time Status Last Admin Dose Admin Ziprasidone (Geodon) 80 mg QHS PO 02/20/20 21:00 02/20/20 20:47 I have reviewed the current psychotropics carefully including drug interactions. Risk benefit ratio favors no change other than as noted in my dictated progress note. Diagnosis: Problems: (1) Psychotic disorder (2) History of Parkinson's disease (3) Major depressive disorder with psychotic features SILVIO CERON MD Feb 20, 2020 21:50
--- NOTE | 2020-02-20 23:55 | NUR ---
Patient is in her room on assumption of care. She is anxious, helpless, attention-seeking. Continues to ask "Why am I being punished? Please tell my why I am being punished so I don't do it again." This nurse assured her that wasn't the case, reorienting her to the fact that she is in the hospital and that we are helping her to get better. She refuses to accept that explanation, just repeating "Why am I being punished?" Also, patient believes that her car is parked in the parking lot and that we are keeping her from it. She is compliant with assessments and medications taken whole on a spoon. She did question what the pills were, but accepted them when provided a brief explanation. Patient denies any pain or discomfort. She remains awake in her room at present time, but is in bed and quiet. Will continue to monitor. Addendum: 02/21/20 at 0206 by ANNE ANTONY RN RN Patient medicated with PRN Zydis at , with very little effect.
[2020-02-21 05:54] VITALS: BP 148/99
[2020-02-21] MEDS: CARBIDOPA/LEVODOPA 25/100MG TABLET PO SCH ×3 (07:18→20:58)
[2020-02-21] MEDS: APIXABAN 2.5 MG TABLET PO SCH ×2 (07:18→20:58)
[2020-02-21] MEDS: ACETAMINOPHEN 500 MG TABLET PO SCH ×4 (07:18→20:58)
[2020-02-21] MEDS: DULoxetine HCL 60 MG CAPSULE.DR PO SCH (07:19)
[2020-02-21] MEDS: METOPROLOL TART IMMED RELEASE 25 MG TABLET PO SCH ×2 (07:19→20:58)
[2020-02-21] MEDS: DOCUSATE SODIUM 100 MG CAPSULE PO SCH (07:19)
[2020-02-21] MEDS: PANTOPRAZOLE 40 MG TABLET. PO SCH (07:19)
[2020-02-21] MEDS: LACTOBACILLUS RHAMNOSUS GG 1 CAPSULE. PO SCH ×2 (07:20→20:57)
[2020-02-21] MEDS: rOPINIRole 1 MG TABLET. PO SCH ×3 (07:20→20:57)
[2020-02-21] MEDS: NEOMYCIN/BACI/POLY/HC OPHTH OINTMENT 3.5GM TUBE. OS SCH ×2 (07:21→20:58)
[2020-02-21] MEDS: NYSTATIN TOPICAL POWDER 15GM BOTTLE. TP SCH ×2 (07:21→20:58)
[2020-02-21 10:47] LABS: ALBUMIN 3.4 g/dL (3.4-5.0); CALCIUM 9.3 mg/dL (8.5-10.1); CREATININE 1.1 mg/dL (0.6-1.0); GFR 47.2; POTASSIUM 4.4 mmol/L (3.5-5.1); TOTAL BILIRUBIN 0.6 mg/dL (0.2-1.0); TOTAL PROTEIN 6.7 g/dL (6.4-8.2)
--- NOTE | 2020-02-21 10:53 | NUR ---
Nursing note: Pt in her room for morning meds and assessment. She was compliant with her meds whole and cooperative with her assessment. Pt has been very drowsy this AM d/t only getting a recorded 1.5 hours of sleep the night before, but she is easily aroused. Pt denied pain and any hallucinations. She is currently sleeping in her room. Will continue to monitor.
[2020-02-21 10:55] LABS: BASO % 0 % (0-3); EOS # 0.2 x10^3/uL (0.0-0.7); EOS % 3 % (0-3); HEMATOCRIT 38.4 % (36.0-47.0); HEMOGLOBIN 12.6 g/dL (12.0-15.5); LYMPH # 1.2 x10^3/uL (1.0-4.8); LYMPH % 16 % (24-48); MEAN CORPUSCULAR HEMOGLOBIN 30 pg (25-35); MEAN CORPUSCULAR HGB CONC 33 g/dL (31-37); MEAN CORPUSCULAR VOLUME 92 fL (79-100); MONO # 0.6 x10^3/uL (0.0-1.1); MONO % 8 % (0-9); NEUT # 5.4 x10^3uL (1.8-7.7); NEUT % 72 % (31-73); PLATELET COUNT 322 x10^3/uL (140-400); RED BLOOD COUNT 4.17 x10^6/uL (3.50-5.40); WHITE BLOOD COUNT 7.5 x10^3/uL (4.0-11.0)
--- NOTE | 2020-02-21 11:13 | NUR ---
EMIL left a message for EMIL Egan at [facility], to inform her that we will look at discharge for Tuesday at this time. EMIL will send updates on pt and make arrangements with Julisa for a Tuesday discharge. EMIL contacted Prakash, pt to let him know that we will look at a Tuesday discharge. Prakash reports talking to pt the last few days and is thankful for the updates. If anything is to change, EMIL will notify all parties.
--- NOTE | 2020-02-21 11:25 | TX PLAN ---
Interdisciplinary Tx Plan Admission Information Jan 23, 2020 at 11:13 Legal Status (on Admission): Voluntary DPOA/Guardian Name: Prakash Fitch Contact Other Contact Name: [facility] Other Contact Verified Code Status: DNR Allergies: Coded Allergies: Erythromycin Base (Verified Allergy, Unknown, 11/12/13) Moexipril (Verified Allergy, Unknown, 11/12/13) alprazolam (Verified Allergy, Unknown, 11/12/13) azithromycin (Verified Allergy, Unknown, 11/12/13) cefuroxime (Verified Allergy, Unknown, 11/09/13) clindamycin (Verified Allergy, Unknown, 11/09/13) codeine (Verified Allergy, Unknown, 11/12/13) hydrochlorothiazide (Verified Allergy, Unknown, 11/12/13) hydrocodone (Verified Allergy, Unknown, 11/12/13) metronidazole (Verified Allergy, Unknown, 11/12/13) Diagnoses Primary Diagnosis: Psychotic D/O unspecified Reasons for Admission: Delusions, Agitated, Hallucinations, Suspicious/paranoid, Poor impulse control, Other Problem in Patient's Words: Thinks that a lot of this has to do with her having multiple UTI's. Additional Admission Comments: According to the intake, pt is delusional and thinks staff are having an affair with her . Pt is having visual and auditory hallucinations, expressing SI "I just want to " putting herself on the floor, mood lability, irritable, agitated and pacing. Problems Active Problems: delusional SI without definite plan mood lability Inactive Problems: Medication management Pt Strengths/Limitations Ability for [place]: Poor Cognitive Functioning/Ability: Poor Communication Skills/Ability: Fair Financial Resources: Fair Insight/Judgement: Poor Intellectual Ability: Fair Physical Health: Poor Social Skills: Fair Stability in Family: Good Stability in School/Work: Poor Verbal Skills: Fair Discharge Criteria Discharge Criteria: No need for close observ., Adequate arrangements @DC, Improved behavior, Improved mood/thought Preliminary Discharge Plan Preliminary DC Plan: Current Living Arrange. Special Precautions Fall Risk: Low Initial D/C Plan Pt will return to [facility]placed By [facility] Identified Discharge Needs: Continued psychiatric services Currently Utilized Resources Currently Utilized Resources/P: Primary care physician Referrals Community Resources: Psychiatrist Identified Problems/Hx/Goals Objectives/Short-Term Goals Short Term Goals: Dec. Hallucination/Delus, Dec. Outbursts, Improved Social Skills, Medication Stabilization, Promote Coping Skill Short Term Goals in Patient's: "Can I get a phone to call my " Interventions/Frequency Staff Interventions/Frequency&: Psychiatrist to assess pt at least 3x per week. Social Work to asses pt at least 2x per week. Nursing to assess behavior, medications and complete 15 minute checks daily. Encourage group participation or 1:1 engagement based off Activity Dept assessment. 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 Education: Pt graduated high school (12th grade) Community Follow-up Primary Care physician Updates to LTC facility Treatment Plan Explained Patient/Cpa Tax had this treatment plan explained to him/her as indicated by the signature below and has been given the opportunity to ask questions and make suggestions: Date: Patient/Cpa Tax Signature: Status Update Update Pt appears to be eating 75% of meals and sleeping on average 7 hours per night. Pt is medication compliant but remains confused and delusional re: her spouse cheating on her. Pt did not sleep as well last night and reports feeling as though she is being punished. Pt will have a repeat UA to ensure that pt does not have a UTI. Discharge at this time will be tentatively Tuesday. MATTEO SALGUERO Feb 21, 2020 11:25
[2020-02-21 11:49] LABS: CLARITY,URINE CLEAR
[2020-02-21 11:50] LABS: COLOR,URINE YELLOW
[2020-02-21 11:51] LABS: BILIRUBIN,URINE NEG (NEG); GLUCOSE,URINE NEG (NEG)
[2020-02-21 11:52] LABS: NITRITE,URINE NEG (NEG); UROBILINOGEN,URINE 0.2 mg/dL (0.2 mg/dL)
[2020-02-21 11:53] LABS: BACTERIA,URINE 0 /HPF (0-FEW); RBC,URINE 0 /HPF (0-2); WBC,URINE 0 /HPF (0-4)
--- NOTE | 2020-02-21 12:55 | NUR ---
Nursing note: Pt very tearful, yelling out, and is coming out of her room without her mask. She is unable to be redirected. PRN provided. Will continue to monitor.
[2020-02-21 16:27] VITALS: BP 174/91
[2020-02-21] MEDS: ZIPRASIDONE 80 MG CAPSULE. PO SCH (20:57)
[2020-02-21] MEDS: MONTELUKAST 10 MG TABLET. PO SCH (20:57)
--- NOTE | 2020-02-21 21:50 | PDOC ---
Exam Note: Wade Note: Please also refer to the separate dictated note~for this date of service dictated separately.~Patient seen individually. Discussed the patient with Nursing staff reviewed the chart.~Reviewed interim history and current functioning. Reviewed vital signs,~Labs/ Radiology~and current medications noted below. Continue current treatment with the changes noted in the dictated addendum note Assessment: Vital Signs/I&O: Vital Signs Date Time Temp Pulse Resp B/P (MAP) Pulse Ox O2 Delivery O2 Flow Rate FiO2 02/21/20 20:58 81 174/91 02/21/20 16:27 98.3 17 94 02/20/20 15:23 Room Air 02/20/20 05:40 2.0 I & O 02/20/20 02/20/20 02/21/20 15:00 23:00 07:00 Intake Total 714 ml 600 ml Balance 714 ml 600 ml Labs: Laboratory Tests Test 02/21/20 10:20 02/21/20 11:04 White Blood Count 7.5 x10^3/uL (4.0-11.0) Red Blood Count 4.17 x10^6/uL (3.50-5.40) Hemoglobin 12.6 g/dL (12.0-15.5) Hematocrit 38.4 % (36.0-47.0) Mean Corpuscular Volume 92 fL (79-100) Mean Corpuscular Hemoglobin 30 pg (25-35) Mean Corpuscular Hemoglobin Concent 33 g/dL (31-37) Red Cell Distribution Width 15.0 % (11.5-14.5) H Platelet Count 322 x10^3/uL (140-400) Neutrophils (%) (Auto) 72 % (31-73) Lymphocytes (%) (Auto) 16 % (24-48) L Monocytes (%) (Auto) 8 % (0-9) Eosinophils (%) (Auto) 3 % (0-3) Basophils (%) (Auto) 0 % (0-3) Neutrophils # (Auto) 5.4 x10^3uL (1.8-7.7) Lymphocytes # (Auto) 1.2 x10^3/uL (1.0-4.8) Monocytes # (Auto) 0.6 x10^3/uL (0.0-1.1) Eosinophils # (Auto) 0.2 x10^3/uL (0.0-0.7) Basophils # (Auto) 0.0 x10^3/uL (0.0-0.2) Sodium Level 143 mmol/L (136-145) Potassium Level 4.4 mmol/L (3.5-5.1) Chloride Level 105 mmol/L (98-107) Carbon Dioxide Level 30 mmol/L (21-32) Anion Gap 8 (6-14) Blood Urea Nitrogen 13 mg/dL (7-20) Creatinine 1.1 mg/dL (0.6-1.0) H Estimated GFR (Cockcroft-Gault) 47.2 BUN/Creatinine Ratio 12 (6-20) Glucose Level 145 mg/dL (70-99) H Calcium Level 9.3 mg/dL (8.5-10.1) Total Bilirubin 0.6 mg/dL (0.2-1.0) Aspartate Amino Transferase (AST) 19 U/L (15-37) Alanine Aminotransferase (ALT) 9 U/L (14-59) L Alkaline Phosphatase 127 U/L (46-116) H Total Protein 6.7 g/dL (6.4-8.2) Albumin 3.4 g/dL (3.4-5.0) Albumin/Globulin Ratio 1.0 (1.0-1.7) Urine Collection Type Unknown Urine Color Yellow Urine Clarity Clear Urine pH 7.0 Urine Specific [place] 1.015 Urine Protein Neg (NEG-TRACE) Urine Glucose (UA) Neg mg/dL (NEG) Urine Ketones (Stick) Neg mg/dL (NEG) Urine Blood Neg (NEG) Urine Nitrite Neg (NEG) Urine Bilirubin Neg (NEG) Urine Urobilinogen Dipstick 0.2 mg/dL (0.2 mg/dL) Urine Leukocyte Esterase Trace (NEG) Urine RBC 0 /HPF (0-2) Urine WBC 0 /HPF (0-4) Urine Bacteria 0 /HPF (0-FEW) Current Medications: I have reviewed the current psychotropics carefully including drug interactions. Risk benefit ratio favors no change other than as noted in my dictated progress note. Diagnosis: Problems: (1) Psychotic disorder (2) History of Parkinson's disease (3) Major depressive disorder with psychotic features SILVIO CERON MD Feb 21, 2020 21:50
--- NOTE | 2020-02-21 23:53 | NUR ---
Pt has been in bed asleep tonight she was awaken briefly for meds then went back to sleep. Pt slept very little last night.
[2020-02-22 06:15] VITALS: BP 146/73
--- NOTE | 2020-02-22 06:29 | PDOC ---
Exam Note: Wade Note: This note is a late entry for 02/20/2020 covers elements not covered in my initial note. Subjective: The patient was reviewed on telehealth rounds in the evening of 02/20/2020 with Sylwia CEDENO due to COVID-19 restrictions on the unit with no admissions and discharges. Per Sylwia CEDENO, she slept 4-3/4 hours previous night. She has been psychotic, paranoid, hallucinating stating her was in the room with her. There was water on the floor that she could see but in fact was not there and she believed people were hiding in the closet. Much of these psychotic symptoms seemed to have increased since the ReQuip was increased. She was very suspicious of the labs that were being drawn, was fixated on nursing staff, agitated that there was some other motive for drawing the labs. She received Zyprexa x2 p.r.n. EKG, QTc is within normal limits and we are going to go ahead and increase the Geodon from 60 mg a day to 80 mg a day. Review of Systems: Ambulation impaired in wheelchair. Vague somatic symptoms. No CV, , pulmonary, eye system symptoms on review. Mental Status Exam: Reasonably oriented. The patient was extremely suspicious, paranoid during the telehealth rounds in the evening. There is nothing I could say that would convince her to look at her misperceptions and delusions in a different perspective. Attention span is short. Language function is intact. No suicidal or homicidal ideation. Laboratory Data: Reviewed. Impression: Major depressive disorder with psychotic features. Psychotic disorder. History of Parkinson disease. Plan: Continue psychotropics from initial note. Increase Geodon to 80 mg a day as noted. Repeat EKG in 2 days. Assessment: Vital Signs/I&O: Vital Signs Date Time Temp Pulse Resp B/P (MAP) Pulse Ox O2 Delivery O2 Flow Rate FiO2 02/22/20 06:15 97.3 100 18 146/73 (97) 97 02/20/20 15:23 Room Air 02/20/20 05:40 2.0 I & O 02/21/20 02/21/20 02/22/20 15:00 23:00 07:00 Intake Total 240 ml 240 ml Balance 240 ml 240 ml Labs: Laboratory Tests Test 02/21/20 10:20 02/21/20 11:04 White Blood Count 7.5 x10^3/uL (4.0-11.0) Red Blood Count 4.17 x10^6/uL (3.50-5.40) Hemoglobin 12.6 g/dL (12.0-15.5) Hematocrit 38.4 % (36.0-47.0) Mean Corpuscular Volume 92 fL (79-100) Mean Corpuscular Hemoglobin 30 pg (25-35) Mean Corpuscular Hemoglobin Concent 33 g/dL (31-37) Red Cell Distribution Width 15.0 % (11.5-14.5) H Platelet Count 322 x10^3/uL (140-400) Neutrophils (%) (Auto) 72 % (31-73) Lymphocytes (%) (Auto) 16 % (24-48) L Monocytes (%) (Auto) 8 % (0-9) Eosinophils (%) (Auto) 3 % (0-3) Basophils (%) (Auto) 0 % (0-3) Neutrophils # (Auto) 5.4 x10^3uL (1.8-7.7) Lymphocytes # (Auto) 1.2 x10^3/uL (1.0-4.8) Monocytes # (Auto) 0.6 x10^3/uL (0.0-1.1) Eosinophils # (Auto) 0.2 x10^3/uL (0.0-0.7) Basophils # (Auto) 0.0 x10^3/uL (0.0-0.2) Sodium Level 143 mmol/L (136-145) Potassium Level 4.4 mmol/L (3.5-5.1) Chloride Level 105 mmol/L (98-107) Carbon Dioxide Level 30 mmol/L (21-32) Anion Gap 8 (6-14) Blood Urea Nitrogen 13 mg/dL (7-20) Creatinine 1.1 mg/dL (0.6-1.0) H Estimated GFR (Cockcroft-Gault) 47.2 BUN/Creatinine Ratio 12 (6-20) Glucose Level 145 mg/dL (70-99) H Calcium Level 9.3 mg/dL (8.5-10.1) Total Bilirubin 0.6 mg/dL (0.2-1.0) Aspartate Amino Transferase (AST) 19 U/L (15-37) Alanine Aminotransferase (ALT) 9 U/L (14-59) L Alkaline Phosphatase 127 U/L (46-116) H Total Protein 6.7 g/dL (6.4-8.2) Albumin 3.4 g/dL (3.4-5.0) Albumin/Globulin Ratio 1.0 (1.0-1.7) Urine Collection Type Unknown Urine Color Yellow Urine Clarity Clear Urine pH 7.0 Urine Specific [place] 1.015 Urine Protein Neg (NEG-TRACE) Urine Glucose (UA) Neg mg/dL (NEG) Urine Ketones (Stick) Neg mg/dL (NEG) Urine Blood Neg (NEG) Urine Nitrite Neg (NEG) Urine Bilirubin Neg (NEG) Urine Urobilinogen Dipstick 0.2 mg/dL (0.2 mg/dL) Urine Leukocyte Esterase Trace (NEG) Urine RBC 0 /HPF (0-2) Urine WBC 0 /HPF (0-4) Urine Bacteria 0 /HPF (0-FEW) Current Medications: I have reviewed the current psychotropics carefully including drug interactions. Risk benefit ratio favors no change other than as noted in my dictated progress note. Diagnosis: Problems: (1) Psychotic disorder (2) History of Parkinson's disease (3) Major depressive disorder with psychotic features SILVIO CERON MD Feb 22, 2020 06:29
--- NOTE | 2020-02-22 06:38 | PDOC ---
Exam Note: Wade Note: This note is a late entry for 02/21/2020 covers elements not covered in my initial note. Subjective: The patient was reviewed on telehealth rounds due to COVID-19 restrictions on the unit in the morning of 02/21/2020 with treatment team with Shital Moore and Karla (social service manager) and Sylwia CEDENO. Per Sylwia RN in the evening on telehealth rounds, she slept just 1-1/2 hours previous night. Appetite is 75%. EKG QTc was 451. We have increased the Geodon to 80 mg a day. She remains delusional, paranoid, believing her is having an affair. Review of Systems: Ambulation impaired in wheelchair. Vague somatic symptoms. No CV, , pulmonary, eye system symptoms on review. Mental Status Exam: Oriented to herself. She remains extremely defensive, said she was not wanting to talk to anyone, quite withdrawn as I met with her on telehealth rounds. Attention span is short. Language function is intact. Mood and affect anxious and paranoid. No suicidal or homicidal ideation. Laboratory Data: Reviewed. Impression: Major depressive disorder with psychotic features. Psychotic disorder. History of Parkinson disease. Plan: Continue psychotropics from initial note. We have increased the Geodon as noted above. We will repeat EKG in 2 days. Check CBC, CMP and UA to make sure UTI is not worsening her delusions. Assessment: Vital Signs/I&O: Vital Signs Date Time Temp Pulse Resp B/P (MAP) Pulse Ox O2 Delivery O2 Flow Rate FiO2 02/22/20 06:15 97.3 100 18 146/73 (97) 97 02/20/20 15:23 Room Air 02/20/20 05:40 2.0 I & O 02/21/20 02/21/20 02/22/20 15:00 23:00 07:00 Intake Total 240 ml 240 ml Balance 240 ml 240 ml Labs: Laboratory Tests Test 02/21/20 10:20 02/21/20 11:04 White Blood Count 7.5 x10^3/uL (4.0-11.0) Red Blood Count 4.17 x10^6/uL (3.50-5.40) Hemoglobin 12.6 g/dL (12.0-15.5) Hematocrit 38.4 % (36.0-47.0) Mean Corpuscular Volume 92 fL (79-100) Mean Corpuscular Hemoglobin 30 pg (25-35) Mean Corpuscular Hemoglobin Concent 33 g/dL (31-37) Red Cell Distribution Width 15.0 % (11.5-14.5) H Platelet Count 322 x10^3/uL (140-400) Neutrophils (%) (Auto) 72 % (31-73) Lymphocytes (%) (Auto) 16 % (24-48) L Monocytes (%) (Auto) 8 % (0-9) Eosinophils (%) (Auto) 3 % (0-3) Basophils (%) (Auto) 0 % (0-3) Neutrophils # (Auto) 5.4 x10^3uL (1.8-7.7) Lymphocytes # (Auto) 1.2 x10^3/uL (1.0-4.8) Monocytes # (Auto) 0.6 x10^3/uL (0.0-1.1) Eosinophils # (Auto) 0.2 x10^3/uL (0.0-0.7) Basophils # (Auto) 0.0 x10^3/uL (0.0-0.2) Sodium Level 143 mmol/L (136-145) Potassium Level 4.4 mmol/L (3.5-5.1) Chloride Level 105 mmol/L (98-107) Carbon Dioxide Level 30 mmol/L (21-32) Anion Gap 8 (6-14) Blood Urea Nitrogen 13 mg/dL (7-20) Creatinine 1.1 mg/dL (0.6-1.0) H Estimated GFR (Cockcroft-Gault) 47.2 BUN/Creatinine Ratio 12 (6-20) Glucose Level 145 mg/dL (70-99) H Calcium Level 9.3 mg/dL (8.5-10.1) Total Bilirubin 0.6 mg/dL (0.2-1.0) Aspartate Amino Transferase (AST) 19 U/L (15-37) Alanine Aminotransferase (ALT) 9 U/L (14-59) L Alkaline Phosphatase 127 U/L (46-116) H Total Protein 6.7 g/dL (6.4-8.2) Albumin 3.4 g/dL (3.4-5.0) Albumin/Globulin Ratio 1.0 (1.0-1.7) Urine Collection Type Unknown Urine Color Yellow Urine Clarity Clear Urine pH 7.0 Urine Specific [employer] [place] 1.015 Urine Protein Neg (NEG-TRACE) Urine Glucose (UA) Neg mg/dL (NEG) Urine Ketones (Stick) Neg mg/dL (NEG) Urine Blood Neg (NEG) Urine Nitrite Neg (NEG) Urine Bilirubin Neg (NEG) Urine Urobilinogen Dipstick 0.2 mg/dL (0.2 mg/dL) Urine Leukocyte Esterase Trace (NEG) Urine RBC 0 /HPF (0-2) Urine WBC 0 /HPF (0-4) Urine Bacteria 0 /HPF (0-FEW) Current Medications: I have reviewed the current psychotropics carefully including drug interactions. Risk benefit ratio favors no change other than as noted in my dictated progress note. Diagnosis: Problems: (1) Psychotic disorder (2) History of Parkinson's disease (3) Major depressive disorder with psychotic features SILVIO CERON MD Feb 22, 2020 06:38
[2020-02-22] MEDS: APIXABAN 2.5 MG TABLET PO SCH ×2 (07:56→20:34)
[2020-02-22] MEDS: PANTOPRAZOLE 40 MG TABLET. PO SCH (07:56)
[2020-02-22] MEDS: DOCUSATE SODIUM 100 MG CAPSULE PO SCH (07:56)
[2020-02-22] MEDS: LACTOBACILLUS RHAMNOSUS GG 1 CAPSULE. PO SCH ×2 (07:58→20:33)
[2020-02-22] MEDS: rOPINIRole 1 MG TABLET. PO SCH ×3 (07:58→20:33)
[2020-02-22] MEDS: ACETAMINOPHEN 500 MG TABLET PO SCH ×4 (07:58→20:34)
[2020-02-22] MEDS: METOPROLOL TART IMMED RELEASE 25 MG TABLET PO SCH ×2 (07:58→20:35)
[2020-02-22] MEDS: NEOMYCIN/BACI/POLY/HC OPHTH OINTMENT 3.5GM TUBE. OS SCH ×2 (07:59→20:33)
[2020-02-22] MEDS: NYSTATIN TOPICAL POWDER 15GM BOTTLE. TP SCH ×2 (07:59→20:33)
[2020-02-22] MEDS: DULoxetine HCL 60 MG CAPSULE.DR PO SCH (07:59)
[2020-02-22] MEDS: CARBIDOPA/LEVODOPA 25/100MG TABLET PO SCH ×3 (07:59→20:33)
[2020-02-22] MEDS: MAG HYDROX/AL HYDROX/SIMETH 30 ML ORAL.SUSP PO PRN (12:02)
[2020-02-22 15:41] VITALS: BP 128/76
--- NOTE | 2020-02-22 15:49 | NUR ---
[facility] Social Work Discharge Planning Form Patient Name STEFFANIE DONALDSON Admit Date: 23 January 2020 DISCHARGE PLAN Discharge Destination: Pt to return to [facility] Assessment: N/A Level II Assessment: N/A Transportation: Pt facility to pick pt up between 10 and 11 Special Instructions/Notes: Please fax all discharge orders and the medication list to facility fax listed below. DISCHARGE TO FACILITY Facility: [facility] Address: [address] [place] [address] Contact Name: Julisa Rubio Salvage Diver: Contact Name: Please ask for the nurse caring for pt upon admission. PCP: Dr. Kumar
--- NOTE | 2020-02-22 16:29 | NUR ---
PATIENT CALM AND PLEASANT THROUGHOUT THE DAY. DURING LUNCH PATIENT COMPLAINED OF A 'BELLYACHE" SHE RECEIVED MYLANTA AND RETURNED TO EATING. PATIENT GOT TEARFUL ABOUT MISSING GLASSES THAT ARE IN A BIG WHITE TOTE SHE STATES. SHE CALLED HER TO BRING HER [employer] AND HER MISSING GLASSES AND WAS UPSET WITH HIM FOR NOT CALLING HER. PATIENT HAD A MILD HEADACHE THROUGHOUT THE DAY BUT STATED THE TYLENOL HELPS. PATIENT COMPLAINT WITH ASSESSMENT AND MEDICATION PASSES.
[2020-02-22] MEDS: ZIPRASIDONE 80 MG CAPSULE. PO SCH (20:34)
[2020-02-22] MEDS: MONTELUKAST 10 MG TABLET. PO SCH (20:35)
--- NOTE | 2020-02-22 21:51 | PDOC ---
Exam Note: Wade Note: Please also refer to the separate dictated note~for this date of service dictated separately.~Patient seen individually. Discussed the patient with Nursing staff reviewed the chart.~Reviewed interim history and current functioning. Reviewed vital signs,~Labs/ Radiology~and current medications noted below. Continue current treatment with the changes noted in the dictated addendum note Assessment: Vital Signs/I&O: Vital Signs Date Time Temp Pulse Resp B/P (MAP) Pulse Ox O2 Delivery O2 Flow Rate FiO2 02/22/20 20:58 97.8 95 Room Air 02/22/20 20:35 81 128/76 02/22/20 15:41 18 02/20/20 05:40 2.0 I & O 02/21/20 02/21/20 02/22/20 15:00 23:00 07:00 Intake Total 240 ml 240 ml Balance 240 ml 240 ml Current Medications: I have reviewed the current psychotropics carefully including drug interactions. Risk benefit ratio favors no change other than as noted in my dictated progress note. Diagnosis: Problems: (1) Psychotic disorder (2) History of Parkinson's disease (3) Major depressive disorder with psychotic features SILVIO CERON MD Feb 22, 2020 21:51
--- NOTE | 2020-02-22 22:00 | NUR ---
Patient is in her room on assumption of care. She is disorganized, flat. Compliant with assessments and medications taken whole. No agitation. Denies any pain or discomfort. Patient appears to be sleeping comfortably at present time.
[2020-02-23 06:16] VITALS: BP 149/82
[2020-02-23] MEDS: CARBIDOPA/LEVODOPA 25/100MG TABLET PO SCH ×3 (07:58→20:05)
[2020-02-23] MEDS: PANTOPRAZOLE 40 MG TABLET. PO SCH (07:58)
[2020-02-23] MEDS: APIXABAN 2.5 MG TABLET PO SCH ×2 (07:58→20:03)
[2020-02-23] MEDS: ACETAMINOPHEN 500 MG TABLET PO SCH ×4 (07:58→20:05)
[2020-02-23] MEDS: rOPINIRole 1 MG TABLET. PO SCH ×3 (07:58→20:04)
[2020-02-23] MEDS: LACTOBACILLUS RHAMNOSUS GG 1 CAPSULE. PO SCH ×2 (07:58→20:04)
[2020-02-23] MEDS: DULoxetine HCL 60 MG CAPSULE.DR PO SCH (07:58)
[2020-02-23] MEDS: DOCUSATE SODIUM 100 MG CAPSULE PO SCH (07:58)
[2020-02-23] MEDS: METOPROLOL TART IMMED RELEASE 25 MG TABLET PO SCH ×2 (07:59→20:04)
[2020-02-23] MEDS: NEOMYCIN/BACI/POLY/HC OPHTH OINTMENT 3.5GM TUBE. OS SCH (07:59)
[2020-02-23] MEDS: NYSTATIN TOPICAL POWDER 15GM BOTTLE. TP SCH ×2 (07:59→20:01)
[2020-02-23] MEDS ORDERED: BENZOCAINE/MENTHOL LOZNGE 18'S BOX. PO PRN (09:45)
[2020-02-23 15:22] VITALS: BP 146/77
--- NOTE | 2020-02-23 16:11 | NUR ---
Pt has been complaint with meds and cares. Has not had any tearful episodes today. Has c/o intermittent MYERS and c/o sore throat x1. Pt AF. Cepacol order received.
[2020-02-23] MEDS: POLYVINYL ALCOHOL 1.4% OPHTH SOLUTION 15ML BOTTLE. OU SCH (20:01)
[2020-02-23] MEDS: MONTELUKAST 10 MG TABLET. PO SCH (20:03)
[2020-02-23] MEDS: ZIPRASIDONE 80 MG CAPSULE. PO SCH (20:05)
--- NOTE | 2020-02-23 21:47 | PDOC ---
Exam Note: Wade Note: Please also refer to the separate dictated note~for this date of service dictated separately.~Patient seen individually. Discussed the patient with Nursing staff reviewed the chart.~Reviewed interim history and current functioning. Reviewed vital signs,~Labs/ Radiology~and current medications noted below. Continue current treatment with the changes noted in the dictated addendum note Assessment: Vital Signs/I&O: Vital Signs Date Time Temp Pulse Resp B/P (MAP) Pulse Ox O2 Delivery O2 Flow Rate FiO2 02/23/20 20:04 89 146/77 02/23/20 20:00 97.7 94 Nasal Cannula 2.0 02/23/20 15:22 18 I & O 0 02/22/20 02/22/20 02/23/20 15:00 23:00 07:00 Intake Total 240 ml 600 ml Balance 240 ml 600 ml Current Medications: Meds: Current Medications Medications (Trade) Dose Ordered Sig/Amilcar Route PRN Reason Start Time Stop Time Status Last Admin Dose Admin Artificial Tears (Artificial Tears) 1 drop BID OU 02/23/20 21:00 02/23/20 20:01 Throat Lozenges (Cepacol Sore Throat Lozenge) 1 sofia PRN Q2HR PRN PO SORE THROAT 02/23/20 09:45 02/23/20 17:59 I have reviewed the current psychotropics carefully including drug interactions. Risk benefit ratio favors no change other than as noted in my dictated progress note. Diagnosis: Problems: (1) Psychotic disorder (2) History of Parkinson's disease (3) Major depressive disorder with psychotic features SILVIO CERON MD Feb 23, 2020 21:47
[2020-02-24 05:26] VITALS: BP 142/63
[2020-02-24] MEDS: CARBIDOPA/LEVODOPA 25/100MG TABLET PO SCH ×2 (07:47→12:24)
[2020-02-24] MEDS: ACETAMINOPHEN 500 MG TABLET PO SCH ×3 (07:47→16:11)
[2020-02-24] MEDS: PANTOPRAZOLE 40 MG TABLET. PO SCH (07:48)
[2020-02-24] MEDS: APIXABAN 2.5 MG TABLET PO SCH (07:48)
[2020-02-24] MEDS: NYSTATIN TOPICAL POWDER 15GM BOTTLE. TP SCH (07:48)
[2020-02-24] MEDS: rOPINIRole 1 MG TABLET. PO SCH ×2 (07:48→12:24)
[2020-02-24] MEDS: DOCUSATE SODIUM 100 MG CAPSULE PO SCH (07:48)
[2020-02-24] MEDS: LACTOBACILLUS RHAMNOSUS GG 1 CAPSULE. PO SCH (07:48)
[2020-02-24] MEDS: POLYVINYL ALCOHOL 1.4% OPHTH SOLUTION 15ML BOTTLE. OU SCH (07:48)
[2020-02-24] MEDS: METOPROLOL TART IMMED RELEASE 25 MG TABLET PO SCH (07:48)
[2020-02-24] MEDS: DULoxetine HCL 60 MG CAPSULE.DR PO SCH (07:48)
--- NOTE | 2020-02-24 08:26 | NUR ---
Patient compliant with medication and assessment. Patient cl Addendum: 02/24/20 at 0809 by CANDIDO CHRISTIANSON RN calmly sitting on edge of bed waiting for breakfast.
[2020-02-24 13:14] VITALS: BP 115/72
--- NOTE | 2020-02-24 13:16 | NUR ---
Patient yelled out of room after nurse heard a yell. Patient was found lying on her left side with her walker. Patient is complaining of left hip pain. Patients family and physician have been notified. X-ray to be completed and further intervention will be done as needed.
--- NOTE | 2020-02-24 14:24 | RAD ---
AP view of the pelvis and two-view study of the left hip Clinical indications: Fall with leg deformity and pain. FINDINGS: There is a comminuted fracture of the base of the neck of the left femur. There is resultant severe varus deformity. A fracture line is seen extending into the intertrochanteric area with relative sparing of the lesser trochanter. No lytic process is seen. No dislocation is evident. IMPRESSION: Acute fracture of the base of the neck of the proximal left femur. Fracture line is seen extending into the intertrochanteric area with relative spurring of the lesser trochanter. Electronically signed by: Jovani Fischer MD (02/24/2020 2:21 PM) [id number]
[2020-02-24 15:17] VITALS: BP 149/81
[2020-02-24] MEDS ORDERED: oxyCODONE/APAP 10/325 1 TAB TABLET PO ONE (16:15)
--- NOTE | 2020-02-24 17:44 | NUR ---
Report given to Chai Rivers at [facility]. EMS was called nd stated they will be arriving in 15 minutes. Patient currently stable.
--- NOTE | 2020-02-24 18:53 | NUR ---
Patient left unit A&Ox2. Patient was in a stable condition. report given to administrative office assistant.
[2020-02-24] MEDS ORDERED: oxyCODONE/APAP 7.5/325 1 TAB TABLET PO ONE (19:00)
--- NOTE | 2020-02-24 19:00 | NUR ---
Transition Record was faxed to follow-up provider with the following elements: Reason for admission, procedures, tests, principal diagnosis, pending studies, patient instructions, 27/12 contact information for unit, phone number to obtain pending test results, plan for follow-up care, physician follow-up, advanced directive information, and medication list with dose, duration and instructions. This information was included in the following documents: History and physical, lab results, study results, progress notes, social work planning form, DC instruction form, patient visit summary, and medication reconciliation form. Date & time record faxed: 02/24/20 [id number] Record faxed to: [facility] Record discussed with/ report given to: Tita CEDENO
--- NOTE | 2020-02-24 21:41 | DS ---
DATE OF DISCHARGE: 02/24/2020 DISCHARGE SUMMARY/PSYCHIATRIC PROGRESS NOTE This note covers elements not covered in my initial note 02/24/2020. REASON FOR ADMISSION: Please refer to the admission history for details. Briefly, the patient is an 85-year-old female referred to us from [facility] by her primary care physician on account of worsening paranoia, delusions, agitation. This is within the context of her Parkinson's disease and recent adjustments in her Parkinson's medications, possibly contributing to worsening psychosis. She believed the staff are having an affair with her spouse. She is having auditory and visual hallucinations and stated "I just want to ." She put herself on the floor, was a potential danger to herself, had failed outpatient psychiatric interventions resulting in this referral. She is having a labile mood, irritable, agitated and pacing. SIGNIFICANT FINDINGS AND CLINICAL COURSE: Following admission, the patient was seen daily individually by myself from a psychiatric standpoint, medical followup with Dr. Macedo/Dr. Covarrubias. The patient is reasonably oriented, much of the time, at times she seems more confused, but extremely paranoid, delusional that her was having an affair. This was very evident, persistent and disruptive initially during the hospitalization. Adjustments were made in her psychotropics. She is finally seemed to respond to a combination of Geodon 80 mg at bedtime, Cymbalta 60 mg a day, Sinemet-CR 25/100 mg t.i.d., Requip 1 mg t.i.d., Zyprexa 2.5 mg q. 2 hours p.r.n. psychosis, agitation. The patient was preparing for discharge on 02/25/2020, but on 02/24/2020, she fell and had a hip fracture. She was transferred to [facility] for further orthopedic management. REVIEW OF SYSTEMS: Positive for some hip pain, impaired ambulation. No CV, , pulmonary, eye system symptoms on review. MENTAL STATUS EXAM: The patient is oriented to herself and situation. Speech has some latency, less pressured. Abstraction fair, computation impaired, language function intact, attention span short. Mood and affect remain somewhat dysphoric, at times labile, but improved. No suicidal or homicidal ideation prior to discharge. She also had a Neurology consult with Dr. Martins for her Parkinson's and her Sinemet and Requip were adjusted, which further exacerbated her psychosis and decompensated by adjusting the Geodon. CONDITION AT DISCHARGE: Improved from a psychiatric standpoint, but she was compromised medically with a hip fracture. FINAL DIAGNOSES: Major depressive disorder with psychotic features; psychotic disorder, unspecified; mild cognitive impairment; anxiety disorder, unspecified; impulse control disorder, unspecified. Hip fracture, status post fall on 02/24/2020. Rest unchanged from admission. DISCHARGE MEDICATIONS: Please refer to the MRAD. DISCHARGE INSTRUCTIONS: Psychiatric and medical followup at [facility] where she was transferred to Orthopedics for specific management of her hip fracture. Time for discharge day management greater than 30 minutes. SILVIO CERON MD DR: SAULO/neil JOB#: [id number] / [id number]
--- NOTE | 2020-02-24 21:57 | PDOC ---
Exam Note: Wade Note: Please also refer to the separate dictated note~for this date of service dictated separately.~Patient seen individually. Discussed the patient with Nursing staff reviewed the chart.~Reviewed interim history and current functioning. Reviewed vital signs,~Labs/ Radiology~and current medications noted below. Continue current treatment with the changes noted in the dictated addendum note Assessment: Vital Signs/I&O: Vital Signs Date Time Temp Pulse Resp B/P (MAP) Pulse Ox O2 Delivery O2 Flow Rate FiO2 02/24/20 18:50 18 Room Air 02/24/20 15:17 97.9 82 149/81 (103) 97 02/24/20 05:26 2.0 I & O 02/23/20 02/23/20 02/24/20 15:00 23:00 07:00 Intake Total 600 ml 600 ml Balance 600 ml 600 ml Current Medications: Meds: Current Medications Medications (Trade) Dose Ordered Sig/Amilcar Route PRN Reason Start Time Stop Time Status Last Admin Dose Admin Oxycodone/ Acetaminophen (Percocet 10/325) 1 tab 1X ONCE PO 02/24/20 16:15 02/24/20 16:16 DC 02/24/20 16:11 Oxycodone/ Acetaminophen (Percocet 7.5/ 325) 1 tab 1X ONCE PO 02/24/20 19:00 02/24/20 18:55 DC 02/24/20 18:50 I have reviewed the current psychotropics carefully including drug interactions. Risk benefit ratio favors no change other than as noted in my dictated progress note. Diagnosis: Problems: (1) Mild cognitive impairment (2) Impulse control disorder, unspecified (3) Anxiety disorder, unspecified (4) Major depressive disorder with psychotic features SILVIO CERON MD Feb 24, 2020 21:57
--- NOTE | 2020-02-25 06:46 | PDOC ---
Exam Note: Wade Note: This note is a late entry for 02/22/2020 covers elements not covered in my initial note. Subjective: The patient was reviewed on telehealth rounds due to COVID-19 restrictions on the unit in the evening of 02/22/2020 with Bib CEDENO. Discussed with nursing staff, reviewed the chart. Overall per nursing report, the patient has been tearful, complains of vague GI symptoms. Received Mylanta. She was sedated in the morning but less delusional about her having an affair. She did talk on the telephone with her who seemed to handle this well, less paranoid. Review of Systems: Ambulation impaired in wheelchair. Vague somatic symptoms. No CV, , pulmonary, eye system symptoms on review. Mental Status Exam: Oriented to herself and situation. Speech is coherent, has some latency. Abstraction is fair. Computation is impaired. Language function is intact. Mood and affect remains somewhat anxious and labile but improved. Laboratory Data: Reviewed. Impression: Major depressive disorder with psychotic features. Mild cognitive impairment. Anxiety disorder unspecified. Impulse control disorder unspecified. Plan: No change from initial note. We are gradually adjusting Geodon, checking EKG for corrected QTc interval. Maintain rest unchanged for now. Assessment: Vital Signs/I&O: Vital Signs Date Time Temp Pulse Resp B/P (MAP) Pulse Ox O2 Delivery O2 Flow Rate FiO2 02/24/20 18:50 18 Room Air 02/24/20 15:17 97.9 82 149/81 (103) 97 02/24/20 05:26 2.0 I & O 02/24/20 02/24/20 02/25/20 15:00 23:00 07:00 Intake Total 600 ml 100 ml Balance 600 ml 100 ml Current Medications: Meds: Current Medications Medications (Trade) Dose Ordered Sig/Amilcar Route PRN Reason Start Time Stop Time Status Last Admin Dose Admin Oxycodone/ Acetaminophen (Percocet 10/325) 1 tab 1X ONCE PO 02/24/20 16:15 02/24/20 16:16 DC 02/24/20 16:11 Oxycodone/ Acetaminophen (Percocet 7.5/ 325) 1 tab 1X ONCE PO 02/24/20 19:00 02/24/20 18:55 DC 02/24/20 18:50 I have reviewed the current psychotropics carefully including drug interactions. Risk benefit ratio favors no change other than as noted in my dictated progress note. Diagnosis: Problems: (1) Major depressive disorder with psychotic features (2) Impulse control disorder, unspecified (3) Mild cognitive impairment (4) Anxiety disorder, unspecified SILVIO CERON MD Feb 25, 2020 06:46
--- NOTE | 2020-02-25 06:57 | PDOC ---
Exam Note: Wade Note: This note is a late entry for 02/23/2020 covers elements not covered in my initial note. Subjective: The patient was reviewed on telehealth rounds due to COVID-19 restrictions on the unit in the evening of 02/23/2020 with Tonya CEDENO. Discussed with nursing staff, reviewed the chart. Correct QT interval is 449 milliseconds. She is overall doing better, less delusional. She is less fixated regarding her having an affair. Review of Systems: Ambulation impaired in wheelchair. Vague somatic symptoms. No CV, , pulmonary, eye system symptoms on review. Mental Status Exam: Oriented to herself. Speech is coherent. Abstraction is fair. Computation is impaired. Language function is intact. No suicidal or homicidal ideation. Laboratory Data: Reviewed. Impression: Major depressive disorder with psychotic features. Mild cognitive impairment. Anxiety disorder unspecified. Impulse control disorder unspecified. Plan: No change from initial note. Assessment: Vital Signs/I&O: Vital Signs Date Time Temp Pulse Resp B/P (MAP) Pulse Ox O2 Delivery O2 Flow Rate FiO2 02/24/20 18:50 18 Room Air 02/24/20 15:17 97.9 82 149/81 (103) 97 02/24/20 05:26 2.0 I & O 02/24/20 02/24/20 02/25/20 15:00 23:00 07:00 Intake Total 600 ml 100 ml Balance 600 ml 100 ml Current Medications: Meds: Current Medications Medications (Trade) Dose Ordered Sig/Amilcar Route PRN Reason Start Time Stop Time Status Last Admin Dose Admin Oxycodone/ Acetaminophen (Percocet 10/325) 1 tab 1X ONCE PO 02/24/20 16:15 02/24/20 16:16 DC 02/24/20 16:11 Oxycodone/ Acetaminophen (Percocet 7.5/ 325) 1 tab 1X ONCE PO 02/24/20 19:00 02/24/20 18:55 DC 02/24/20 18:50 I have reviewed the current psychotropics carefully including drug interactions. Risk benefit ratio favors no change other than as noted in my dictated progress note. Diagnosis: Problems: (1) Major depressive disorder with psychotic features (2) Impulse control disorder, unspecified (3) Mild cognitive impairment (4) Anxiety disorder, unspecified SILVIO CERON MD Feb 25, 2020 06:57
== END 2020-02-24 18:55 | disposition short-term general hospital (02) | DRG 885 ==
LOC: GEROPSY 11:13
PROVIDERS: ADMIT Psychiatry & Neurology Psychiatry; ATTEND Psychiatry & Neurology Psychiatry
DX: F32.3 Major depressive disorder, single episode, severe with psychotic features (principal); S72.042A Displaced fracture of base of neck of left femur, initial encounter for closed fracture; J96.90 Respiratory failure, unspecified, unspecified whether with hypoxia or hypercapnia; F03.91 Unspecified dementia, unspecified severity, with behavioral disturbance; I50.32 Chronic diastolic (congestive) heart failure; N39.0 Urinary tract infection, site not specified; R45.851 Suicidal ideations; G20 Parkinson's disease; E53.8 Deficiency of other specified B group vitamins; E55.9 Vitamin D deficiency, unspecified; E66.9 Obesity, unspecified; E78.5 Hyperlipidemia, unspecified; F41.1 Generalized anxiety disorder; F63.9 Impulse disorder, unspecified; G25.0 Essential tremor; G89.29 Other chronic pain; I11.0 Hypertensive heart disease with heart failure; I48.0 Paroxysmal atrial fibrillation; J45.909 Unspecified asthma, uncomplicated; K58.9 Irritable bowel syndrome, unspecified; R13.10 Dysphagia, unspecified; Z66 Do not resuscitate; Z79.01 Long term (current) use of anticoagulants; Z79.899 Other long term (current) drug therapy; Z87.440 Personal history of urinary (tract) infections; Z99.3 Dependence on wheelchair; K21.9 Gastro-esophageal reflux disease without esophagitis; K59.09 Other constipation; K62.3 Rectal prolapse; K64.9 Unspecified hemorrhoids; M19.90 Unspecified osteoarthritis, unspecified site; M62.81 Muscle weakness (generalized); W19.XXXA Unspecified fall, initial encounter; W18.39XA Other fall on same level, initial encounter; Y93.89 Activity, other specified; Y92.238 Other place in hospital as the place of occurrence of the external cause; Y99.8 Other external cause status; Z20.828 Contact with and (suspected) exposure to other viral communicable diseases
CPT/HCPCS: 36415; 73502; 80053; 80061; 81001; 82306; 82607; 82947; 83036; 83540; 83550; 83735; 84436; 84443; 84480; 85025; 86592; 87086; 87426; 93005; J3420; J7613; 97110; 97116; 97530; 97535; U0003-CS